=== PATIENT | female | born 1945 | race Caucasian/White ===

== ENCOUNTER → 2018-03-28 07:19 | Outpatient (CLI) | payer MEDICARE, OTHER, SELFPAY ==
[2018-03-28 10:25] LABS: Anion Gap 10 (5-15); BUN 15 mg/dL (7-18); BUN/Creat Ratio 22.3 RATIO (10-20); Calcium,Total 10.6 mg/dL (8.5-10.1); Chloride 105 mmol/L (98-107); Cholesterol 128 mg/dL (200); Creatinine, Serum 0.67 mg/dL (0.55-1.02); EST Glomerular Filtration Rate 92 mL/min (>60); Est Glom Filt Rate - Afr Amer 111 mL/min (>60); Glucose 214 mg/dL (74-106); High Density Lipoprotein 41 mg/dL; Potassium 4.4 mmol/L (3.5-5.1); Sodium Level 138 mmol/L (136-145); Triglycerides 153 mg/dL; Very Low Density Lipoprotein 31 mg/dL (5-40)
[2018-03-28 10:30] LABS: Hemoglobin A1c 8.6 % (4.2-6.3)
== END ==
PROVIDERS: Family Provider Family Medicine; PCP Family Medicine; Referring Provider Family Medicine; Visit Provider Family Medicine
DX: E11.9 Type 2 diabetes mellitus without complications (principal); E78.00 Pure hypercholesterolemia, unspecified
CPT/HCPCS: 36415; 80048; 80061; 83036

== ENCOUNTER → 2019-03-10 08:33 | Outpatient (CLI) | payer MEDICARE, OTHER, SELFPAY ==
[2019-03-10 10:11] LABS: Absolute Lymphocyte Count 2.12 X10^3/uL (0.83-4.51); Absolute Neutrophil Count 2.9 X10^3/uL (2.0-7.7); Basophil# 0.05 X10^3/uL; Basophil% 0.9 % (0-1); Eosinophil# 0.24 X10^3/uL; Eosinophils% 4.2 % (0-5); Hematocrit 43.8 % (37-47); Hemoglobin 14.2 g/dL (12.0-15.0); Lymphocyte # 2.12 X10^3/ul (4.0); Lymphocyte % 36.7 % (19-41); Mean Corp Hgb Conc 32.4 g/dL (32-36); Mean Corpuscular Hgb 29.5 pg (27.0-32.0); Mean Corpuscular Volume 91.1 fL (81-99); Mean Platelet Vol. 10.4 fl (6.2-12.0); Monocyte# 0.47 X10^3/uL; Monocyte% 8.1 % (0-10); NRBC Flagged by Analyzer 0 % (0-5); Neutrophil # 2.88 X10^3/uL (2.7-7.7); Neutrophil % 49.9 % (47-70); Platelet Count 293 K/mm3 (150-450); RBC Distribution Width CV 13.2 % (11.6-14.6); RBC Distribution Width SD 44.3 fl (35.1-43.9); Red Blood Count 4.81 M/mm3 (4.2-5.4); White Blood Count 5.8 K/mm3 (4.4-11.0)
[2019-03-10 10:33] LABS: Hemoglobin A1c 6.8 % (4.2-6.3)
[2019-03-10 10:44] LABS: Microalbumin,Random Urine 8.9 mg/L (NO RANGE EST.); Microalbumin:Creatinine Ratio 14.8 mg/g CRE (<30 mg/g CRE)
[2019-03-10 10:49] LABS: ALB/GLOB Ratio 1.4 RATIO (0.9-2.4); AST(SGOT) 12 U/L (15-37); Alanine Aminotransfer ALT/SGPT 31 U/L (13-56); Albumin, Serum 4.2 g/dL (3.2-5.0); Alkaline Phosphatase 88 U/L (45-117); Anion Gap 7 (5-15); BUN 17 mg/dL (7-18); BUN/Creat Ratio 24.7 RATIO (10-20); Calcium,Total 10.3 mg/dL (8.5-10.1); Chloride 108 mmol/L (98-107); Cholesterol 146 mg/dL (200); Creatinine, Serum 0.69 mg/dL (0.55-1.02); EST Glomerular Filtration Rate 89 mL/min (>60); Est Glom Filt Rate - Afr Amer 108 mL/min (>60); Globulin 2.9 g/dL (2.2-4.2); Glucose 140 mg/dL (74-106); High Density Lipoprotein 47 mg/dL; Phosphorus 2.5 mg/dL (2.5-4.9); Potassium 4.1 mmol/L (3.5-5.1); Protein, Total 7.1 g/dL (6.4-8.2); Sodium Level 137 mmol/L (136-145); Thyroid Stim Hormone (TSH) 1.42 uIU/mL (0.358-3.74); Triglycerides 139 mg/dL; Very Low Density Lipoprotein 28 mg/dL (5-40)
[2019-03-10 10:55] LABS: Vitamin D,25 Hydroxy 30.3 ng/mL (29.95-100.01)
[2019-03-11 09:02] LABS: PTHIN 85.7 pg/mL (18.4-80.1)
== END ==
PROVIDERS: PCP Family Medicine; Referring Provider Family Medicine; Visit Provider Family Medicine
DX: E11.9 Type 2 diabetes mellitus without complications (principal); E78.00 Pure hypercholesterolemia, unspecified; M81.0 Age-related osteoporosis without current pathological fracture; E83.52 Hypercalcemia; S92.501A Displaced unspecified fracture of right lesser toe(s), initial encounter for closed fracture; X58.XXXA Exposure to other specified factors, initial encounter
CPT/HCPCS: 36415; 80053; 80061; 82043; 82306; 82570; 83036; 83970; 84100; 84443; 85025

== ENCOUNTER → 2019-03-31 07:46 | Outpatient (CLI) | payer MEDICARE, OTHER, SELFPAY ==
--- NOTE | 2019-03-31 07:50 | US_ITS ---
HISTORY: NODULE FELT BY DOCTOR COMPARISON: None TECHNIQUE: Grayscale and color Doppler sonography of the thyroid gland. FINDINGS: RIGHT LOBE: 5.1 x 1.1 x 1.4 cm LEFT LOBE: 4.4 x 0.9 x 1.3 cm ISTHMUS: 2 mm Multiple thyroid nodules. Right inferior thyroid lobe measuring 1.4 x 1.0 x 1.1 cm, mixed solid and cystic with vascularity seen in the solid component which is isoechoic to hyperechoic. No definite calcification. TIRADS 2 Right mid thyroid lobe nodule measuring 1.3 x 0.6 x 1.1 cm, smoothly marginated, mildly hypoechoic with no definite calcification. TIRADS 4 Mixed solid and cystic smoothly marginated right thyroid lobe nodule measuring 0.8 x 0.4 x 0.8 cm without definite calcification. TIRADS 2 Isoechoic left mid thyroid lobe nodule measuring 0.9 x 0.5 x 0.7 cm, smoothly marginated without calcification. TIRADS 3 Additional small hypoechoic to anechoic left thyroid lobe nodules are seen measuring up to 4 mm in size. US/Thyroid IMPRESSION: Multiple bilateral thyroid nodules, as described. 1 year follow-up recommended for 1.3 cm TIRADS 4 lesion. at 0115 Reported and signed by: Lizette Wolfe MD Electronically Signed: Lizette Wolfe MD at 1:15 EST Tel , Service support ,
--- NOTE | 2019-03-31 08:54 | ECHOD_ITS ---
Reason For Study: Murmur Procedure This was a 2D Doppler, Color Flow transthoracic echocardiogram. Exam performed in department. Left Ventricle Normal size and thickness. The estimated ejection fraction is 65 %. Stage 1 diastolic dysfunction. No regional wall motion abnormalities noted. Right Ventricle Normal size and thickness. Normal systolic function. Atria Normal left atrium. Normal right atrium. Normal atrial septum. Mitral Valve The mitral valve is structurally normal. No prolapse or stenosis seen. Trivial mitral valve insufficiency. Tricuspid Valve Normal tricuspid valve. Trivial tricuspid valve insufficiency. Right ventricular systolic pressure estimated to be 24 mmHg. Aortic Valve Normal aortic valve. Trisinus/trileaflet aortic valve. Pulmonic Valve Normal pulmonic valve. Trivial pulmonic valve insufficiency. Great Vessels Normal aortic root. Normal arch. Normal inferior vena cava. Inferior vena cava collapse with sniff. Pericardium/Pleural No pericardial effusion. MMode/2D Measurements & Calculations LVIDd: 4.5 cm IVSd: 1.0 cm Ao root diam: 3.3 cm LVIDs: 3.2 cm LVPWd: 0.93 cm RVDd: 2.0 cm FS: 29.7 % LAV(MOD-bp): 32.4 ml LVAd ap4: 20.2 cm2 SV(MOD-sp4): 32.2 ml LAV(MOD-bp) Indexed: 19.4 ml/m2 EDV(MOD-sp4): 52.7 ml LAV(MOD-sp2): 28.4 ml EDV(sp4-el): 53.1 ml LAV(MOD-sp4): 30.6 ml LVAs ap4: 11.3 cm2 ESV(MOD-sp4): 20.6 ml ESV(sp4-el): 19.8 ml EF(MOD-sp4): 61.0 % EF(sp4-el): 62.7 % SV(sp4-el): 33.3 ml LA A4 area: 14.4 cm2 LA dimension(2D): 4.1 cm RA A4 area: 12.4 cm2 Doppler Measurements & Calculations MV E max bharat: 57.0 cm/sec Lat Peak E' Bharat: 9.9 cm/sec Med Peak E' Bharat: 5.9 cm/sec MV A max bharat: 72.1 cm/sec E/E' lat: 5.8 E/E' med: 9.6 MV E/A: 0.79 Ao V2 max: 151.4 cm/sec LV V1 max: 95.5 cm/sec PA V2 max: 82.8 cm/sec Ao max P.2 mmHg LV V1 max P.6 mmHg Ao V2 mean: 109.2 cm/sec Ao mean P.1 mmHg Ao V2 VTI: 34.5 cm TR max bharat: 221.6 cm/sec TR max P.6 mmHg Interpretation Summary The estimated ejection fraction is 65 %. Stage 1 diastolic dysfunction. Trivial mitral valve insufficiency. Trivial tricuspid valve insufficiency. Right ventricular systolic pressure estimated to be 24 mmHg. There is no comparison study available. Ordering Physician: Brooks Frank Referring Physician: Brooks Frank Performed By: Pauly Boyle RDCS, RVT
--- NOTE | 2019-03-31 09:40 | NM_ITS ---
CLINICAL: 74-year-old female with reported history of hypercalcemia. 99m Tc SESTAMIBI DUAL PHASE PARATHYROID SCINTIGRAPHY COMPARISON: None available FINDINGS: Following the intravenous administration of 28.0 mCi of 99m Tc sestamibi, image acquisitions of the anterior neck at approximately 15 minutes and 2.0 hours post radiopharmaceutical provision reveal: 1. Immediate static blood pool acquisitions demonstrate distribution of the radiopharmaceutical in the right-left lobes of the vaguely U-shaped thyroid gland. Uptake is accentuated in the superior pole of the left lobe thyroid colloid. 2. Delayed images depict persistent increased tracer uptake noted in the superior pole of the left thyroid bed. NM/Parathyroid Scan IMPRESSION: 1. ABNORMAL-POSITIVE 99m Tc SESTAMIBI PARATHYROID IMAGING DUAL PHASE EXAMINATION. 2. The increase in radiopharmaceutical concentration redemonstrated in the superior pole of the left thyroid bed is most consistent with a parathyroid adenoma. Electronically Signed: Keny Ovalle DO at 22:25 EST Tel , Service support ,
== END ==
PROVIDERS: PCP Family Medicine; Referring Provider Family Medicine; Visit Provider Family Medicine
DX: E21.3 Hyperparathyroidism, unspecified (principal); E04.1 Nontoxic single thyroid nodule; R01.1 Cardiac murmur, unspecified
CPT/HCPCS: 76536; 78070; 93306; A9500

== ENCOUNTER → 2019-04-08 09:57 | Outpatient (CLI) | payer MEDICARE, OTHER, SELFPAY ==
--- NOTE | 2019-04-08 09:59 | BD_ITS ---
STUDY: DUAL ENERGY X-RAY ABSORPTIOMETRY / DXA REASON FOR EXAM: Female, 74 years old. Age of paul- 45. Pat is 139# and 63 and amp; quot; a loss of 1 and amp; quot; per patient. Past hx of taking an HRT. Type II diabetic and takes metformin. Patient takes fosamax for 5 yrs.. Exercises moderately. Hx of a left wrist fx. TECHNIQUE: Bone Mineral Density (BMD) measurements of lumbar spine and bilateral hips were obtained. COMPARISON: Comparison is made with prior study dated October 14, 2013. FINDINGS: Lumbar Spine (L1-L4): g/cm2 (0.822) / T-score (-3.0) / Z-score (-1.3) Findings are suggestive of osteoporosis with a high fracture risk. Left Femur Total: g/cm2 (0.696) / T-score (-2.5) / Z-score (-0.9) Left Femoral Neck: g/cm2 (0.708) / T-score (-2.4) / Z-score (-0.6) Right Femur Total: g/cm2 (0.727) / T-score (-2.2) / Z-score (-0.7) Right Femoral Neck: g/cm2 (0.659) / T-score (-2.7) / Z-score (-0.9) The T-Scores on the most recent prior examination were: Lumbar Spine (L1-L4): There has been worsening of bone density since the previous examination. Left Femur Total: which represents a worsening of 12.1%. Right Femur Total: which represents a worsening of 12.5%. BD/Dexa Bone Density Study IMPRESSION: The patient is considered osteoporotic as outlined below according to World [employer] Organization (WHO) criteria with a high fracture risk. There has been worsening of bone density since the previous examination. Reference Information: The T-score is the number of standard deviations above or below the standard which is normal for young adults at their peak bone mineral density. The World Health Organization (WHO) interprets the T-scores as follows: Above -1 Normal bone density Between -1 and -2.5 Osteopenia Equal to / or below -2.5 Osteoporosis As a practical clinical guideline, osteopenia may be graded as follows: Mild -1 through -1.5 Moderate -1.6 through -2.0 Severe -2.1 through -2.4 The Z-score is the number of standard deviations above or below age-matched controls. A Z-score of less than -1.5 would be considered abnormal. References: 1. NIH Osteoporosis and Related Bone Diseases http://www.osteo.org 2. International Society for Clinical Densitometry http://www.iscd.org 3. National Osteoporosis Foundation http://www.nof.org Electronically Signed: Ariel Galicia, at 12:29 EST , Service support ,
== END ==
PROVIDERS: PCP Family Medicine; Referring Provider Family Medicine; Visit Provider Family Medicine
DX: M81.0 Age-related osteoporosis without current pathological fracture (principal)
CPT/HCPCS: 77080

== ENCOUNTER → 2019-08-01 11:54 | Outpatient (CLI) | payer MEDICARE, OTHER, SELFPAY ==
[2019-08-01 15:22] LABS: Absolute Lymphocyte Count 2.55 X10^3/uL (0.83-4.51); Absolute Neutrophil Count 4.3 X10^3/uL (2.0-7.7); Basophil# 0.04 X10^3/uL; Basophil% 0.5 % (0-1); Eosinophil# 0.23 X10^3/uL; Hematocrit 42.7 % (37-47); Lymphocyte # 2.55 X10^3/ul (4.0); Lymphocyte % 33.7 % (19-41); Mean Corp Hgb Conc 30.4 g/dL (32-36); Mean Corpuscular Hgb 28.9 pg (27.0-32.0); Mean Corpuscular Volume 94.9 fL (81-99); Mean Platelet Vol. 10.5 fl (6.2-12.0); Monocyte# 0.47 X10^3/uL; Monocyte% 6.2 % (0-10); NRBC Flagged by Analyzer 0 % (0-5); Neutrophil # 4.25 X10^3/uL (2.7-7.7); Neutrophil % 56.3 % (47-70); Platelet Count 345 K/mm3 (150-450); RBC Distribution Width CV 13.8 % (11.6-14.6); White Blood Count 7.6 K/mm3 (4.4-11.0)
[2019-08-01 15:48] LABS: Hemoglobin A1c 6.5 % (3.8-5.6)
[2019-08-01 15:58] LABS: Microalbumin,Random Urine 11.1 mg/L (NO RANGE EST.); Microalbumin:Creatinine Ratio 28.8 mg/g CRE (<30 mg/g CRE)
[2019-08-01 16:00] LABS: ALB/GLOB Ratio 1.2 RATIO (0.9-2.4); AST(SGOT) 16 U/L (15-37); Alanine Aminotransfer ALT/SGPT 28 U/L (13-56); Albumin, Serum 4.1 g/dL (3.2-5.0); Alkaline Phosphatase 100 U/L (45-117); Anion Gap 8 (5-15); BUN 14 mg/dL (7-18); BUN/Creat Ratio 22.1 RATIO (10-20); Calcium,Total 9.4 mg/dL (8.5-10.1); Chloride 107 mmol/L (98-107); Cholesterol 122 mg/dL (200); Creatinine, Serum 0.63 mg/dL (0.55-1.02); EST Glomerular Filtration Rate 98 mL/min (>60); Est Glom Filt Rate - Afr Amer 118 mL/min (>60); Globulin 3.3 g/dL (2.2-4.2); Glucose 95 mg/dL (74-106); High Density Lipoprotein 46 mg/dL; Potassium 3.8 mmol/L (3.5-5.1); Protein, Total 7.4 g/dL (6.4-8.2); Sodium Level 138 mmol/L (136-145); Triglycerides 121 mg/dL; Very Low Density Lipoprotein 24 mg/dL (5-40)
[2019-08-01 19:01] LABS: Vitamin D,25 Hydroxy 48.9 ng/mL (29.95-100.01)
[2019-08-04 08:35] LABS: PTHIN 30.2 pg/mL (18.4-80.1)
== END ==
PROVIDERS: PCP Family Medicine; Visit Provider Family Medicine
DX: E11.9 Type 2 diabetes mellitus without complications (principal); E78.00 Pure hypercholesterolemia, unspecified; D35.1 Benign neoplasm of parathyroid gland; M81.0 Age-related osteoporosis without current pathological fracture
CPT/HCPCS: 36415; 80053; 80061; 82043; 82306; 82570; 83036; 83970; 85025

== ENCOUNTER → 2020-05-03 08:09 | Outpatient (CLI) | payer MEDICARE, OTHER, SELFPAY ==
[2020-05-03 10:31] LABS: PTHIN 34.1 pg/mL (18.4-80.1); Vitamin D,25 Hydroxy 39.8 ng/mL
[2020-05-03 10:41] LABS: ALB/GLOB Ratio 1.3 RATIO (0.9-2.4); AST(SGOT) 13 U/L (15-37); Alanine Aminotransfer ALT/SGPT 27 U/L (13-56); Albumin, Serum 3.9 g/dL (3.2-5.0); Alkaline Phosphatase 72 U/L (45-117); Anion Gap 7 (5-15); BUN 19 mg/dL (7-18); BUN/Creat Ratio 31.5 RATIO (10-20); Calcium,Total 8.8 mg/dL (8.5-10.1); Chloride 106 mmol/L (98-107); Cholesterol 116 mg/dL (200); EST Glomerular Filtration Rate 104 mL/min (>60); Est Glom Filt Rate - Afr Amer 125 mL/min (>60); Globulin 2.9 g/dL (2.2-4.2); Glucose 120 mg/dL (74-106); High Density Lipoprotein 41 mg/dL; Phosphorus 3.8 mg/dL (2.5-4.9); Potassium 3.8 mmol/L (3.5-5.1); Protein, Total 6.8 g/dL (6.4-8.2); Sodium Level 140 mmol/L (136-145); Triglycerides 142 mg/dL; Very Low Density Lipoprotein 28 mg/dL (5-40)
[2020-05-03 10:43] LABS: Hemoglobin A1c 6.4 % (3.8-5.6)
== END ==
PROVIDERS: PCP Family Medicine; Visit Provider Family Medicine
DX: E11.9 Type 2 diabetes mellitus without complications (principal); E78.00 Pure hypercholesterolemia, unspecified; M81.0 Age-related osteoporosis without current pathological fracture; D35.1 Benign neoplasm of parathyroid gland
CPT/HCPCS: 36415; 80053; 80061; 82306; 83036; 83970; 84100

== ENCOUNTER → 2020-10-28 08:09 | Outpatient (CLI) | payer MEDICARE, OTHER, SELFPAY ==
[2020-10-28 10:19] LABS: Absolute Lymphocyte Count 2.45 X10^3/uL (0.83-4.51); Absolute Neutrophil Count 3.6 X10^3/uL (2.0-7.7); Basophil# 0.04 X10^3/uL; Basophil% 0.6 % (0-1); Eosinophil# 0.37 X10^3/uL; Eosinophils% 5.3 % (0-5); Hematocrit 43.8 % (37-47); Hemoglobin 13.9 g/dL (12.0-15.0); Lymphocyte # 2.45 X10^3/ul (0.83-4.51); Lymphocyte % 35.2 % (19-41); Mean Corp Hgb Conc 31.7 g/dL (32-36); Mean Corpuscular Hgb 29.2 pg (27.0-32.0); Mean Platelet Vol. 10.6 fl (6.2-12.0); Monocyte% 7.2 % (0-10); NRBC Flagged by Analyzer 0 % (0-5); Neutrophil # 3.58 X10^3/uL (2.7-7.7); Neutrophil % 51.4 % (47-70); Platelet Count 298 K/mm3 (150-450); RBC Distribution Width CV 13.2 % (11.6-14.6); RBC Distribution Width SD 44.8 fl (35.1-43.9); Red Blood Count 4.76 M/mm3 (4.2-5.4)
[2020-10-28 10:51] LABS: Cholesterol 138 mg/dL (200); High Density Lipoprotein 44 mg/dL; Triglycerides 143 mg/dL; Very Low Density Lipoprotein 29 mg/dL (5-40)
[2020-10-28 10:53] LABS: Hemoglobin A1c 6.9 % (3.8-5.6)
[2020-10-28 10:55] LABS: Vitamin D,25 Hydroxy 41.6 ng/mL
== END ==
PROVIDERS: PCP Family Medicine; Referring Provider Family Medicine; Visit Provider Family Medicine
DX: E11.9 Type 2 diabetes mellitus without complications (principal); M81.0 Age-related osteoporosis without current pathological fracture
CPT/HCPCS: 36415; 80061; 82306; 83036; 85025

== ENCOUNTER → 2020-11-11 09:51 | Outpatient (CLI) | payer MEDICARE, OTHER, SELFPAY ==
--- NOTE | 2020-11-11 09:54 | US_ITS ---
STUDY: THYROID ULTRASOUND REASON FOR EXAM: Female, 75 years old. Thyroid nodules. TECHNIQUE: Ultrasound evaluation of the thyroid was performed with real-time and static meraz-scale imaging. COMPARISON: Comparison is made with prior examination dated 03/31/2019. FINDINGS: RIGHT LOBE: The right lobe of the thyroid gland measures 4.8 cm x 1.6 cm x 1.1 cm. There is a heterogeneous echotexture. 3 nodules are seen within the right lobe. The largest measures 1.2 cm x 1.2 size by 0.4 cm. This is a hypoechoic solid nodule. This is essentially unchanged. There is a mixed solid and cystic nodule measuring 9 mm x 6 mm x 2 mm. This is unchanged. LEFT LOBE: The left lobe of the thyroid gland measures 4.6 cm x 1.6 cm x 0.9 cm. There is a heterogeneous echotexture. Once again, 3 subcentimeter hypoechoic solid nodules are seen. The largest is in the midpole and measures 9 mm x 4 mm x 4 mm. This is essentially unchanged. ISTHMUS: The isthmus measures 2 mm. The regional lymph nodes are normal. US/Thyroid IMPRESSION: Heterogeneous echotexture of both lobes of the thyroid gland as described. Stable appearance of the bilateral thyroid nodules. Electronically Signed: Ariel Galicia MD at 13:36 EDT , Service support ,
== END ==
PROVIDERS: PCP Family Medicine; Referring Provider Family Medicine; Visit Provider Family Medicine
DX: E04.1 Nontoxic single thyroid nodule (principal)
CPT/HCPCS: 76536

== ENCOUNTER → 2020-12-14 | Outpatient (CLI) | payer MEDICARE, OTHER, SELFPAY | END | disposition home or self-care (01) | LOC: LABSPEC 12-15 09:28 | PROVIDERS: PCP Family Medicine; Visit Provider Family Medicine | DX: N39.0 Urinary tract infection, site not specified (principal) | CPT/HCPCS: 87086; 87088 ==

== ENCOUNTER → 2020-12-31 16:44 | Outpatient (CLI) | payer MEDICARE, OTHER, SELFPAY ==
--- NOTE | 2020-12-31 16:20 | CYSPIN_PTH ---
PATIENT: LAUREN OLIVERA LOC: [facility] U#:[id number] AGE/SX: 79/F ROOM: RE12/31/[address]: Dr. Becki Lorenz MD : 1945 BED: DIS: SPEC #: [id number] RECD: 01/03/21 08:52 STATUS: ELAN REEmily #: [id number] SAMEER: 12/31/20 16:[address]: Becki Lorenz DEPT: CYTOLOGY RECD BY: Ibis Aponte ENTERED: 01/03/21 08:52 SP TYPE: CYSPIN FL OTHR DR: Dr. Brooks Frank MD Tissues: Urine Procedures: Pap Stain (control) Special Stain Group II Cytospin Fluid HEADER OPERATION: Not noted PRE-OP DIAGNOSIS: Gross hematuria TISSUE SUBMITTED: Urine for cytology DIAGNOSIS CYTOLOGY Urine for cytology (cytospin): Negative for malignant cells. See comment. ENEIDA:asad 01/03/2021 COMMENT Red blood cells are noted. Clinical correlation and appropriate follow up are necessary. CYTOLOGY STUDY Slides are reviewed. CYTOLOGY GROSS Received is 20 ml of yellow cloudy fluid labeled with the patient's name and and designated per the requisition as urine. Submitted for cytology preparation. / asad 01/03/2021 TC:5 CPT: 83173
[2020-12-31 18:01] LABS: Cytology, Body Fluid / CSF SEE PATHOLOGY REPORT
[2020-12-31 18:14] LABS: Anion Gap 11 (5-15); BUN 17 mg/dL (7-18); Calcium,Total 9.4 mg/dL (8.5-10.1); Chloride 103 mmol/L (98-107); Creatinine, Serum 0.57 mg/dL (0.55-1.02); EST Glomerular Filtration Rate 111 mL/min (>60); Est Glom Filt Rate - Afr Amer 134 mL/min (>60); Glucose 111 mg/dL (74-106); Potassium 3.9 mmol/L (3.5-5.1); Sodium Level 138 mmol/L (136-145)
== END ==
PROVIDERS: PCP Family Medicine; Referring Provider Urology; Visit Provider Urology
DX: R31.0 Gross hematuria (principal)
CPT/HCPCS: 36415; 80048; 88108; 88313

== ENCOUNTER → 2021-01-12 08:20 | Outpatient (CLI) | payer MEDICARE, OTHER, SELFPAY ==
--- NOTE | 2021-01-12 08:30 | CT_ITS ---
STUDY: CT ABDOMEN AND PELVIS WITH AND WITHOUT CONTRAST REASON FOR EXAM: Female, 75 years old. GROSS HEMATURIA. History of kidney stones. Known lung nodules. RADIATION DOSAGE (If Supplied By Facility): CTDIvol = ( 11.91 ) mGy, DLP = ( 1692.72 ) mGycm TECHNIQUE: Transaxial images were obtained from the dome of the diaphragm to the symphysis pubis without oral contrast. IV 100mL Isovue-370 was administered. Sagittal and coronal images were reconstructed. Individualized dose optimization techniques were used for this CT. COMPARISON: None. FINDINGS: Fibrocalcific scarring at the right lung base medially. The visualized portions of the heart are within normal limits. Normal liver. Normal gallbladder and extrahepatic biliary system. Normal spleen. Normal pancreas. There is a small, circumscribed, smooth, low attenuation left adrenal mass, consistent with an adrenal adenoma. This measures 2.1 cm. Normal right adrenal gland. Normal right kidney. Mild degree of left hydronephrosis due to a 7.8 mm calculus at the left ureteropelvic junction. 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 Left parapelvic renal cysts. There is a small hiatal hernia. Normal small intestine. There are scattered colonic diverticula consistent with diverticulosis. Sigmoid diverticulosis. The patient is status post appendectomy. There is scattered atherosclerotic calcification of the abdominal aorta, without a demonstrated aneurysm. Normal inferior vena cava. There is borderline retroperitoneal lymphadenopathy with enlarged nodes no greater than 10mm in the short axis diameter. Normal urinary bladder. There is absence of the uterus consistent with a prior hysterectomy. Normal abdominal wall. There are diffuse degenerative changes of the visualized lumbar spine. Levoscoliosis. CT/CT Abd/Pelvis W/WO Contrast IMPRESSION: 7.8 mm calculus at the left ureteral pelvic junction causing mild left hydronephrosis. Stable angiomyolipoma of the left kidney. Stable left adrenal adenoma. Electronically Signed: Ariel Galicia MD at 12:46 EST , Service support ,
== END ==
PROVIDERS: PCP Family Medicine; Referring Provider Urology; Visit Provider Urology
DX: R31.0 Gross hematuria (principal)
CPT/HCPCS: 74178; Q9967

== ENCOUNTER → 2021-01-14 13:29 | Outpatient (CLI) | payer MEDICARE, OTHER, SELFPAY ==
--- NOTE | 2021-01-14 13:31 | RAD_ITS ---
STUDY: X-RAY - ABDOMEN/PELVIS REASON FOR EXAM: Female, 75 years old. Flank pain, hematuria TECHNIQUE: Two AP supine views of the abdomen and pelvis. COMPARISON: CT scan from 01/12/2021 FINDINGS: Normal visualized lung bases. There is a moderate amount of colonic fecal material. There is no demonstrated free abdominal air. The visualized liver, spleen and kidneys are grossly normal in size and morphology. Calcific densities noted at or near the left UPJ, unchanged from previous CT Normal soft tissue structures. There are diffuse degenerative changes of the visualized lumbar spine. RAD/Abdomen Single View IMPRESSION: Calcifications at or near the left UPJ unchanged from recent CT No acute findings Retained stool Electronically Signed: Victorino Glez MD at 17:19 EST , Service support ,
== END ==
PROVIDERS: PCP Family Medicine; Referring Provider Urology; Visit Provider Urology
DX: N20.1 Calculus of ureter (principal)
CPT/HCPCS: 74018

== ENCOUNTER 2021-01-24 08:41 | Day surgery (SDC) | payer MEDICARE, OTHER, SELFPAY ==
--- NOTE | 2021-01-20 09:40 | EKG12_ITS ---
Test Reason : PREOP Blood Pressure : / mmHG Vent. Rate : 072 BPM Atrial Rate : 072 BPM P-R Int : 144 ms QRS Dur : 096 ms QT Int : 382 ms P-R-T Axes : 060 -47 037 degrees QTc Int : 418 ms Normal sinus rhythm Left axis deviation Poor R wave progression AnteroSeptal CT, age undetermined, cannot be excluded Inferior CT, age undetermined, cannot be excluded Abnormal ECG Confirmed by LILLY CLIFFORD, ERMELINDA ([id number]), editor managing newspaper ROBERT RABAGO ([id number]) on 01/21/2021 7:50:18 AM Referred By: Becki Lorenz Confirmed By:ERMELINDA CARR MD
[2021-01-20 10:21] LABS: Hemoglobin A1c 6.5 % (3.8-5.6)
[2021-01-20 10:31] LABS: Anion Gap 8 (5-15); BUN 12 mg/dL (7-18); BUN/Creat Ratio 15.8 RATIO (10-20); Calcium,Total 9.2 mg/dL (8.5-10.1); Chloride 105 mmol/L (98-107); Creatinine, Serum 0.76 mg/dL (0.55-1.02); EST Glomerular Filtration Rate 79 mL/min (>60); Est Glom Filt Rate - Afr Amer 96 mL/min (>60); Glucose 256 mg/dL (74-106); Sodium Level 138 mmol/L (136-145)
[2021-01-24 09:14] VITALS: BP 138/74; PULSE 87; RESP 16; TEMP 36.8; O2SAT 98; BMI 22.9
[2021-01-24] MEDS: Lactated Ringers 1,000 ML 15 ML IV (09:27)
--- NOTE | 2021-01-24 09:50 | HP.PCM_ITS ---
HPI - General HPI Narrative LAUREN OLIVERA, is a 76 F who presents for bladder biopsy, ureteral stent insertion and extracorporeal shockwave lithotripsy of left ureteropelvic junction stone. Informed consent was obtained. [facility] Medical History (Updated 01/24/21 @ 09:[address] Becki Lorenz MD) Anxiety Back pain Depression Diabetes Dietary restriction High cholesterol History of echocardiogram History of stress test Hx of malignant carcinoid tumor Lesion of urinary bladder Non-smoker Obstruction of left ureteropelvic junction (UPJ) due to stone Restless legs Wears glasses Home Medications aspirin [Aspir-81] 81 mg PO DAILY 01/19/21 [History Last Taken Unknown] atorvastatin 20 mg PO QHS 01/19/21 [History Last Taken Unknown] calcium 500 mg PO DAILY 01/19/21 [History Last Taken Unknown] empagliflozin [Jardiance] 25 mg PO DAILY 01/19/21 [History Last Taken Unknown] escitalopram oxalate [Lexapro] 10 mg PO DAILY 01/19/21 [History Last Taken Unknown] metformin 1,000 mg PO BID 01/19/21 [History Last Taken Unknown] Allergy/AdvReac Type Severity Reaction Status Date / Time cefdinir [From Omnicef] Allergy Swelling/FACIAL Verified 01/24/21 09:13 AND HIVES Surgical History History of cystoscopy History of laparotomy Hx of arthroscopic knee surgery Hx of colonoscopy Hx of hysterectomy, total Hx of parathyroidectomy Hx of shoulder surgery Social History Smoking Status: Never smoker ROS Constitutional Constitutional: Denies chills, fever(s) or night sweats Eyes Eyes: Denies change in vision ENT HEENT: Reports systems reviewed and no addt'l complaints, except as documented Cardiovascular Cardiovascular: Denies chest pain, fatigue, irregular heart rhythm or orthostatic symptoms Respiratory/Chest Respiratory/Chest: Denies cough, dry cough, dyspnea, tachypnea or wheezing Gastrointestinal Gastrointestinal: Reports abdominal pain; Denies change in stool character Genitourinary Genitourinary: Reports systems reviewed and no addt'l complaints, except as documented, flank pain, hematuria, low back pain and urinary urgency Musculoskeletal Musculoskeletal: Denies atrophy or joint pain Integumentary Integumentary: Denies changing lesions, pruritus or rash Neurologic Neurologic: Reports systems reviewed and no addt'l complaints, except as documented Psychiatric Psychiatric: Reports systems reviewed and no addt'l complaints, except as documented Endocrine Endocrinology: Reports systems reviewed and no addt'l complaints, except as documented Hematologic/Lymphatic Hematologic/Lymphatic: Reports systems reviewed and no addt'l complaints, except as documented Allergic/Immunologic Allergic/Immunologic: Reports systems reviewed and no addt'l complaints, except as documented Vital Signs Vital Signs Vital Signs: 01/24/21 09:14 Temperature 98.2 F Temperature Source Temporal Pulse Rate 87 Respiratory Rate 16 Respiratory Pattern Normal Blood Pressure 138/74 H Blood Pressure Mean 95 Blood Pressure Source Monitor Blood Pressure Position Semi-Fowlers Blood Pressure Location Right Arm Pulse Ox 98 Oxygen Delivery Method Room Air Weight Weight: 60.7 kg Body Mass Index (BMI) 22.9 Physical Exam Const alert and oriented x3 HEENT normocephalic, head/scalp atraumatic, external ears normal and external nose normal Mouth: lips normal and tongue normal Eyes General Eye: normal appearance of both eyes Neck supple General: trachea midline Lymph Lymphatic: no lymphedema noted Chest inspection of chest normal Chest: symmetrical chest wall rise Resp normal respiratory effort, normal air movement, no retractions and no use of accessory muscles Effort and Inspection: able to speak in complete sentences and symmetric chest movement Cardio regular rate and regular rhythm GI soft to palpation, non-tender and non-distended external exam normal Back/Spine General Back: CVA tenderness left Extremity normal to inspection Skin no rashes or lesions noted, no wounds, skin turgor normal, no jaundice, no petechiae and no mottling Neuro oriented x3, CN's II-XII intact bilaterally and moves all extremities Psych mental status grossly normal, thought process normal and cooperative Results Lab / Micro Data Result Diagrams: 01/20/21 09:32 01/20/21 09:32 Assessment & Plan Assessment/Plan (1) Obstruction of left ureteropelvic junction (UPJ) due to stone: (2) Lesion of urinary bladder: PLAN: proceed with cystoscopy, bladder biopsy, left ureteral stent with extracorporeal shockwave lithotripsy on the left side Procedure Criteria Type of Procedure Procedure Type: Elective Elective Risks - COVID COVID Risk Discussion: The surgeon/proceduralist and patient have discussed in detail the risk of exposure to and/or potential harm posed by the COVID-19 virus with having a surgery/procedure at this time versus the risk of delaying the surgery/procedure. It is not possible to know either the risk of delaying the surgery or procedure or chance of getting an infection with perfect accuracy, but a joint decision was made between the patient and the surgeon/proceduralist to proceed at this time with the scheduled surgery/procedure as indicated on the consent form.
--- NOTE | 2021-01-24 10:05 | PCM.DC ---
Discharge Instructions Diet Discharge Diet: No restrictions Activity Discharge Activity: Return to Normal Activity May resume sexual activity in: No Restrictions Dressing / Incision Call your doctor if you observe: Fever of 101 or Higher, Inability to urinate, Inability to have a bowel movement and Uncontrolled pain Follow Up Care Please Follow Up With: Becki Lorenz MD When: the office will call you to schedule Test Results: Test results from this visit will be discussed in further detail at your follow-up appointment, if applicable. Discharge Plan Admission Attending Provider: Becki Lorenz Primary Care Provider: Brooks Frank Discharge Orders/Prescriptions Prescriptions: New oxycodone-acetaminophen [Percocet] 5-325 mg tablet 1 tab PO Q8H PRN (Reason: pain) 7 Days Qty: 20 RF: 0 phenazopyridine [Pyridium] 200 MG tablet 200 mg PO TID PRN PRN (Reason: Bladder Spasms) 7 Days Qty: 30 RF: 0 sulfamethoxazole-trimethoprim [sulfamethoxazole-trimethoprim] 1 TABLET tablet 1 tab PO BID 3 Days Qty: 6 RF: 0 Continued metformin 500 mg Tablet 1,000 mg PO BID RF: 0 atorvastatin 20 mg Tablet 20 mg PO QHS RF: 0 calcium 500 mg Tablet 500 mg PO DAILY RF: 0 aspirin 81 mg Tablet,Delayed Release (Dr/Ec) 81 mg PO DAILY RF: 0 escitalopram oxalate [Lexapro] 10 mg Tablet 10 mg PO DAILY RF: 0 Jardiance 25 mg Tablet 25 mg PO DAILY RF: 0 Referrals / Follow Up: Brooks Farnk MD [Primary Care Provider] - Disposition Disposition (needs filled in before D/C Order can be placed): Home, Self Care
--- NOTE | 2021-01-24 11:03 | PCM.OPRPT ---
Problems Associated Problem List Diagnoses (1) Obstruction of left ureteropelvic junction (UPJ) due to stone: Report of Operation Date of Procedure: 01/24/21 Pre-Operative Diagnosis: Left ureteropelvic junction obstruction secondary to stone Post-Operative Diagnosis: Same Surgery/Procedure Performed:: Cystoscopy left ureteral stent insertion Surgeon: Becki Lorenz Type of Anesthesia: MAC Description of Procedure: The patient is a 76-year-old female sent for an evaluation for hematuria and found to have an obstructing left ureteropelvic junction stone. She did not stop her aspirin, and the case was subsequently changed to cystoscopy with left ureteral stent insertion. Patient was taken to the operating room and placed on the operating room table. Anesthesia monitored the head, neck, airway, IV access and vital signs throughout the case. Once anesthesia was appropriately administered the patient was placed in dorsal lithotomy position was prepped and draped in usual sterile fashion. The cystoscope was inserted through the urethra under direct visualization into the urinary bladder. The left ureteral orifice was identified and intubated with a 0.035 Glidewire. A 6 x 24 JJ stent was inserted over the Glidewire with good curling in the renal pelvis as well as the urinary bladder. The cystic bladder lesion on a stalk remains lateral to the left ureteral orifice. The patient's bladder was then emptied and the case was terminated. The patient was awakened and taken to the recovery room in good condition. There were no complications during this procedure. Grafts/Implants Used: 6 x 24 JJ stent Complications None Admit VTE Documentation VTE Present on Admission: Yes VTE Mechan Device Prophylaxis: SCD's VTE Pharm Prophylaxis ordered?: No Reason prophylaxis not ordered:: Treatment Not Indicated
[2021-01-24] MEDS: Ciprofloxacin 400 MG/200 ML BAG 200 MG IV (11:18)
[2021-01-24 11:41] VITALS: BP 123/62; BP 138/74; PULSE 82; RESP 16; TEMP 36.7; O2SAT 96
[2021-01-24 11:45] VITALS: BP 126/61; BP 138/74; PULSE 75; RESP 16; O2SAT 98
[2021-01-24 12:00] VITALS: BP 138/74; BP 143/70; PULSE 71; RESP 16; O2SAT 97
[2021-01-24 12:15] VITALS: BP 127/67; BP 138/74; PULSE 76; RESP 16; O2SAT 97
[2021-01-24 12:15] LABS: Bedside Glucose 147 mg/dL (70-110)
[2021-01-24 12:49] VITALS: BP 138/74; BP 157/70; PULSE 60; RESP 16; TEMP 36.4; O2SAT 100
== END 2021-01-24 12:59 | disposition home or self-care (01) ==
LOC: SDC 08:42 → AC 08:43
PROVIDERS: Anesthesiology; PCP Family Medicine; Referring Provider Urology; Visit Provider Urology
PROC: (CPT 50590; principal; 2021-01-24 10:05)
DX: N20.1 Calculus of ureter (principal); E11.9 Type 2 diabetes mellitus without complications; E78.00 Pure hypercholesterolemia, unspecified; F32.A Depression, unspecified; F41.9 Anxiety disorder, unspecified; Z79.84 Long term (current) use of oral hypoglycemic drugs; Z79.82 Long term (current) use of aspirin; Z79.899 Other long term (current) drug therapy
CPT/HCPCS: 00910; 52332; 36415; 76000; 80048; 82962; 83036; 93005; J7120; C2617; J0744; J2405

== ENCOUNTER 2021-02-18 11:02 | Outpatient (CLI) | payer MEDICARE, OTHER, SELFPAY | END 2021-02-18 23:59 | disposition short-term general hospital (02) | LOC: MTLAB 11:03 | PROVIDERS: PCP Family Medicine; Referring Provider Urology; Visit Provider Urology | DX: N39.0 Urinary tract infection, site not specified (principal) | CPT/HCPCS: 87086; 87088 ==

== ENCOUNTER 2021-02-25 07:31 | Day surgery (SDC) | payer MEDICARE, OTHER, SELFPAY ==
--- NOTE | 2021-02-25 | IMM_PTH ---
PATIENT: LAUREN OLIVERA LOC: [facility] U#:[id number] AGE/SX: 76/F ROOM: RE02/25/[address]: Dr. Becki Lorenz MD : 1945 BED: DIS: 02/25/2021 SPEC #: [id number] RECD: 02/28/21 12:41 STATUS: ELAN REEmily #: [id number] SAMEER: 02/25/21 00:[address]: Becki Lorenz DEPT: IMMUNOHISTOCHEMISTRY RECD BY: Adeola Valentine ENTERED: 02/28/21 12:43 SP TYPE: IMMUNO OTHR DR: Dr. Brooks Frank MD Tissues: Urinary bladder, NOS Procedures: CK20 (add) KI-67 (add) P53 (add) CK7 (initial) PHYSICIAN & INSTITUTION [place] [id number] SPECIMEN INFORMATION: Tissue Source: Bladder biopsy Clinical Info: Lesion of bladder, obstruction of left UPJ due to stone Specimen Number: [id number] CPT code: 22609, 60398 x3 METHODOLOGY: Deparaffinized sections of prefer/formalin-fixed tissue or PAP/DQ stained slides are incubated with monoclonal/polyclonal antibodies/oligonucleotide probes. Localization is made via biotin free immunoperoxidase method. Appropriate controls are performed and reacted as expected. Results on target cell population are indicated in the following table: RESULTS: ANTIBODY / CLONE RESULT CK7 (OV-TL12/30) positive CK20 (KS20.8) positive, focal, only in superficial layers P53 (DO-7) negative Ki-67 (30-9) positive, low These tests were developed and their performance characteristics determined by [facility]. They may not have been cleared or approved by the U.S. Food and Drug Administration. The FDA has determined that such clearance or approval is not necessary. The above immunohistochemical/dualISH markers are ordered and reviewed by the Pathologist. INTERPRETATION: Urinary bladder, biopsy: Negative for malignancy. ENEIDA:asad 03/01/2021
[2021-02-25 07:59] VITALS: BP 139/74; PULSE 82; RESP 16; TEMP 36.5; O2SAT 97; BMI 22.6
--- NOTE | 2021-02-25 08:29 | HP.PCM_ITS ---
HPI - General HPI Narrative LAUREN OLIVERA, is a 76 F who presents for definitive management of her left renal calculus with extracorporal shockwave lithotripsy. She already has a left indwelling ureteral stent. She is also going to have a biopsy of a small cystic lesion on a stalk on the area of the trigone. Informed consent has been obtained. All questions have been answered. 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 Restless legs Wears glasses Home Medications Jardiance 25 mg PO DAILY 01/19/21 [History Last Taken 02/24/21] aspirin 81 mg PO DAILY 01/19/21 [History Last Taken 01/24/21] atorvastatin 20 mg PO QHS 01/19/21 [History Last Taken 02/24/21] calcium 500 mg PO DAILY 01/19/21 [History Last Taken 02/24/21] escitalopram oxalate [Lexapro] 10 mg PO DAILY 01/19/21 [History Last Taken 02/24/21] metformin 1,000 mg PO BID 01/19/21 [History Last Taken 02/24/21] Allergy/AdvReac Type Severity Reaction Status Date / Time cefdinir [From Omnicef] Allergy Swelling/FACIAL Verified 02/25/21 07:57 AND HIVES Surgical History History of cystoscopy History of laparotomy Hx of arthroscopic knee surgery Hx of colonoscopy Hx of cystoscopy Hx of hysterectomy, total Hx of parathyroidectomy Hx of shoulder surgery Social History Smoking Status: Never smoker ROS Constitutional Constitutional: Reports systems reviewed and no addt'l complaints, except as documented; Denies chills, fever(s), headache(s), lethargy, malaise or night sweats Eyes Eyes: Reports systems reviewed and no addt'l complaints, except as documented ENT HEENT: Reports systems reviewed and no addt'l complaints, except as documented Cardiovascular Cardiovascular: Denies abdominal pain, nausea, syncope or vomiting Respiratory/Chest Respiratory/Chest: Denies change in mental status, chest congestion, cough or dyspnea Gastrointestinal Gastrointestinal: Denies abdominal pain or anorexia Genitourinary Genitourinary: Reports flank pain, hematuria, urinary frequency and urinary urgency; Denies dysuria Musculoskeletal Musculoskeletal: Reports systems reviewed and no addt'l complaints, except as documented Integumentary Integumentary: Reports systems reviewed and no addt'l complaints, except as documented Neurologic Neurologic: Reports systems reviewed and no addt'l complaints, except as documented Psychiatric Psychiatric: Reports systems reviewed and no addt'l complaints, except as documented Endocrine Endocrinology: Reports systems reviewed and no addt'l complaints, except as documented Hematologic/Lymphatic Hematologic/Lymphatic: Reports systems reviewed and no addt'l complaints, except as documented Allergic/Immunologic Allergic/Immunologic: Reports systems reviewed and no addt'l complaints, except as documented Vital Signs Vital Signs Vital Signs: 02/25/21 07:59 Temperature 97.7 F L Temperature Source Temporal Pulse Rate 82 Respiratory Rate 16 Respiratory Pattern Normal Blood Pressure 139/74 H Blood Pressure Mean 95 Blood Pressure Source Monitor Blood Pressure Position Semi-Fowlers Blood Pressure Location Left Arm Pulse Ox 97 Oxygen Delivery Method Room Air Weight Weight: 60 kg Body Mass Index (BMI) 22.6 Physical Exam Const alert, oriented x3 and no apparent distress HEENT normocephalic, head/scalp atraumatic, hearing grossly normal bilaterally, external ears normal and external nose normal Eyes conjunctivae normal and no scleral icterus General Eye: normal appearance of both eyes Neck supple General: trachea midline Lymph Lymphatic: no lymphedema noted Chest inspection of chest normal Chest: symmetrical chest wall rise Resp normal respiratory effort, normal air movement, no retractions and no use of accessory muscles Cardio regular rate and regular rhythm GI soft to palpation, non-tender and non-distended Back/Spine General Back: CVA tenderness left Extremity normal to inspection Skin no rashes or lesions noted, no wounds, skin turgor normal, no jaundice, no petechiae and no mottling Neuro oriented x3, CN's II-XII intact bilaterally and moves all extremities Psych mental status grossly normal, thought process normal, cooperative, affect normal, speech normal and activity/motor behavior normal Assessment & Plan Assessment/Plan (1) Lesion of urinary bladder: (2) 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 It is not possible to know either the risk of delaying the surgery or procedure or chance of getting an infection with perfect accuracy, but a joint decision was made between the patient and the surgeon/proceduralist to proceed at this time with the scheduled surgery/procedure as indicated on the consent form.
[2021-02-25] MEDS: Lactated Ringers 1,000 ML 15 ML IV ×2 (08:30→10:39)
--- NOTE | 2021-02-25 08:34 | PCM.DC ---
Discharge Instructions Diet Discharge Diet: No restrictions Activity Discharge Activity: Return to Normal Activity May resume sexual activity in: No Restrictions Dressing / Incision Call your doctor if you observe: Fever of 101 or Higher, Inability to urinate, Inability to have a bowel movement and Uncontrolled pain Follow Up Care Please Follow Up With: Becki Lorenz MD When: call for appt to be seen in 2-3 weeks with KUB Test Results: Test results from this visit will be discussed in further detail at your follow-up appointment, if applicable. Discharge Plan Admission Attending Provider: Becki Lorenz Primary Care Provider: Brooks Frank Discharge Orders/Prescriptions Prescriptions: New oxycodone-acetaminophen [Percocet] 5-325 mg tablet 1 tab PO Q8H PRN (Reason: pain) 5 Days Qty: 20 RF: 0 sulfamethoxazole-trimethoprim [sulfamethoxazole-trimethoprim] 1 TABLET tablet 1 tab PO BID 3 Days Qty: 6 RF: 0 Continued metformin 500 mg Tablet 1,000 mg PO BID RF: 0 atorvastatin 20 mg Tablet 20 mg PO QHS RF: 0 calcium 500 mg Tablet 500 mg PO DAILY RF: 0 aspirin 81 mg Tablet,Delayed Release (Dr/Ec) 81 mg PO DAILY RF: 0 escitalopram oxalate [Lexapro] 10 mg Tablet 10 mg PO DAILY RF: 0 Jardiance 25 mg Tablet 25 mg PO DAILY RF: 0 Referrals / Follow Up: Brooks Frank MD [Primary Care Provider] - Disposition Disposition (needs filled in before D/C Order can be placed): Home, Self Care
--- NOTE | 2021-02-25 08:37 | PCM.OPRPT ---
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 Informed consent was obtained. The patient was taken the operating room and placed in the operating room table. Anesthesia monitored the head, neck, airway, IV access and vital signs throughout the case. Once anesthesia was actively administered the patient was placed into dorsolithotomy position and was prepped and draped in usual sterile fashion. The cystoscope was inserted through the urethra under direct visualization into the urinary bladder. This cystic lesion is just lateral to the left ureteral orifice. Using the flexible biopsy forceps it was grasped and removed in its entirety. The base was fulgurated for hemostatic control. No other abnormalities were identified. At this time the patient's bladder was emptied and she was positioned appropriately for the lithotripsy. The stone was easily identified alongside her indwelling ureteral stent. 3000 shocks were applied to the stone which appeared to be well fragmented at the conclusion of the case. The patient was then awakened and taken the recovery room in good condition. There were no complications during this procedure. Grafts/Implants Used: none Complications none Admit VTE Documentation VTE Present on Admission: Yes VTE Mechan Device Prophylaxis: SCD's VTE Pharm Prophylaxis ordered?: Yes
[2021-02-25] MEDS: Ciprofloxacin 400 MG/200 ML BAG 200 MG IV (08:51)
--- NOTE | 2021-02-25 08:55 | BLA_PTH ---
PATIENT: LAUREN [place]IVERA [place] [facility] [place][id number] AGE/SX: 76/F ROOM: RE02/25/[address]: Dr. Becki Lorenz MD : 1945 BED: DIS: 02/25/2021 SPEC #: [id number] RECD: 02/25/21 10:23 STATUS: ELAN DEBORA #: [id number] SAMEER: 02/25/21 08:[address]: Becki Lorenz DEPT: SURGICAL PATHOLOGY RECD BY: Ibis Aponte ENTERED: 02/25/21 12:31 SP TYPE: BLADDER BX OTHR DR: Dr. Brooks Frank MD Tissues: Urinary bladder, NOS Procedures: Surgery Specimen Level IV HEADER OPERATION: ESWL PRE-OP DIAGNOSIS: Lesion of urinary bladder, obstruction of left ureteropelvic junction due to stone TISSUE SUBMITTED: Bladder biopsy MICROSCOPIC DIAGNOSIS Bladder lesion, biopsy: A fragment of urothelial mucosa with focal epithelial hyperplasia and mild atypia. Negative for malignancy. See comment. ENEIDA:asad 02/28/2021 COMMENT Detrusor muscle is not seen in the specimen. Immunohistochemistry ([id number]) supports the above diagnosis. Clinical correlation and appropriate follow up are necessary. Case has been reviewed in consultation with Dr. Carlson who concurs with the above diagnosis. IDC:AM MICROSCOPIC DESCRIPTION Slides are reviewed. GROSS DESCRIPTION Received in fixative is one container labeled with the patient's name and designated bladder biopsy. The specimen consists of one irregular fragment of light rodriguez soft tissue that measures 0.2 x 0.1 x 0.1 cm. The specimen is totally submitted in one cassette. / ENEIDA:asad 02/25/2021 TC:5 CPT: 81681
[2021-02-25 09:05] LABS: Bedside Glucose 154 mg/dL (70-110)
[2021-02-25 10:00] VITALS: BP 139/74; BP 153/86; PULSE 81; RESP 18; TEMP 35.8; O2SAT 95
[2021-02-25 10:15] VITALS: BP 139/74; BP 154/69; PULSE 75; RESP 16; O2SAT 96
[2021-02-25 10:30] VITALS: BP 139/74; BP 148/69; PULSE 75; RESP 16; O2SAT 96
[2021-02-25 10:45] VITALS: BP 139/74; BP 148/61; PULSE 69; RESP 16; TEMP 35.8; O2SAT 97
[2021-02-25 11:27] VITALS: BP 139/74; BP 166/66; PULSE 86; RESP 16; TEMP 36.2; O2SAT 97
== END 2021-02-25 23:59 | disposition home or self-care (01) ==
LOC: SDC 07:33 → AC 07:34
PROVIDERS: PCP Family Medicine; Referring Provider Urology; Visit Provider Urology
PROC: (CPT 50590; principal; 2021-02-25 08:40)
PROC: 0TBB8ZX Excision of Bladder, Via Natural or Artificial Opening Endoscopic, Diagnostic (ICD-10-PCS; CPT 52204; 2021-02-25 08:40)
DX: N32.89 Other specified disorders of bladder (principal); E11.9 Type 2 diabetes mellitus without complications; N20.1 Calculus of ureter; E78.00 Pure hypercholesterolemia, unspecified; F32.A Depression, unspecified; F41.9 Anxiety disorder, unspecified; Z79.84 Long term (current) use of oral hypoglycemic drugs; Z79.82 Long term (current) use of aspirin; Z79.899 Other long term (current) drug therapy
CPT/HCPCS: 52204; 00910; 50590; 82962; 88305; 88341; 88342; J7120; J0744; J2405

== ENCOUNTER 2021-03-08 13:13 | Outpatient (CLI) | payer MEDICARE, OTHER, SELFPAY ==
--- NOTE | 2021-03-08 13:22 | RAD_ITS ---
STUDY: X-RAY - ABDOMEN/PELVIS REASON FOR EXAM: Female, 76 years old. KUB TECHNIQUE: Single AP view of the abdomen / pelvis. COMPARISON: Comparison is made with prior study dated 01/14/2021. FINDINGS: There is a moderate amount of colonic fecal material. A left-sided double-J stent catheter is seen with the proximal tip in the region of the left renal pelvis and the distal tip in the left-sided bladder. The previously seen calculus in the mid portion of the left side of the abdomen is not seen at this time. Normal soft tissue structures. There are diffuse degenerative changes of the visualized lumbar spine. Mild levoscoliosis. RAD/Abdomen Single View IMPRESSION: A left-sided double-J stent catheter is seen. No abnormal calcification is seen overlying the course of the left ureter. Electronically Signed: Ariel Galicia MD at 15:31 EST ,
== END 2021-03-08 23:59 | disposition short-term general hospital (02) ==
LOC: MTRAD 13:21
PROVIDERS: PCP Family Medicine; Referring Provider Urology; Visit Provider Urology
DX: N20.0 Calculus of kidney (principal)
CPT/HCPCS: 74018

== ENCOUNTER 2021-05-05 07:41 | Outpatient (CLI) | payer MEDICARE, OTHER, SELFPAY ==
[2021-05-05 10:20] LABS: Absolute Lymphocyte Count 2.06 X10^3/uL (0.83-4.51); Absolute Neutrophil Count 3.3 X10^3/uL (2.0-7.7); Basophil# 0.05 X10^3/uL; Basophil% 0.8 % (0-1); Eosinophils% 6.4 % (0-5); Hematocrit 42.8 % (37-47); Hemoglobin 14.3 g/dL (12.0-15.0); Lymphocyte # 2.06 X10^3/ul (0.83-4.51); Lymphocyte % 32.8 % (19-41); Mean Corp Hgb Conc 33.4 g/dL (32-36); Mean Corpuscular Hgb 29.9 pg (27.0-32.0); Mean Corpuscular Volume 89.5 fL (81-99); Mean Platelet Vol. 10.5 fl (6.2-12.0); Monocyte# 0.46 X10^3/uL; Monocyte% 7.3 % (0-10); NRBC Flagged by Analyzer 0 % (0-5); Neutrophil # 3.28 X10^3/uL (2.7-7.7); Neutrophil % 52.2 % (47-70); Platelet Count 296 K/mm3 (150-450); RBC Distribution Width CV 13.5 % (11.6-14.6); RBC Distribution Width SD 44.3 fl (35.1-43.9); Red Blood Count 4.78 M/mm3 (4.2-5.4); White Blood Count 6.3 K/mm3 (4.4-11.0)
[2021-05-05 10:47] LABS: ALB/GLOB Ratio 1.3 RATIO (0.9-2.4); AST(SGOT) 13 U/L (15-37); Alanine Aminotransfer ALT/SGPT 26 U/L (13-56); Alkaline Phosphatase 77 U/L (45-117); Anion Gap 6 (5-15); BUN 14 mg/dL (7-18); BUN/Creat Ratio 21.9 RATIO (10-20); Calcium,Total 8.7 mg/dL (8.5-10.1); Chloride 103 mmol/L (98-107); Cholesterol 119 mg/dL (200); Creatinine, Serum 0.64 mg/dL (0.55-1.02); EST Glomerular Filtration Rate 96 mL/min (>60); Est Glom Filt Rate - Afr Amer 117 mL/min (>60); Glucose 144 mg/dL (74-106); High Density Lipoprotein 45 mg/dL; Potassium 4.3 mmol/L (3.5-5.1); Sodium Level 137 mmol/L (136-145); Triglycerides 88 mg/dL; Very Low Density Lipoprotein 18 mg/dL (5-40)
[2021-05-05 10:48] LABS: Vitamin D,25 Hydroxy 41.7 ng/mL
[2021-05-05 10:52] LABS: Hemoglobin A1c 6.6 % (3.8-5.6)
[2021-05-05 11:04] LABS: Microalbumin,Random Urine 6.9 mg/L (NO RANGE EST.); Microalbumin:Creatinine Ratio 12.9 mg/g CRE (<30 mg/g CRE)
== END 2021-05-05 23:59 | disposition home or self-care (01) ==
LOC: MTLAB 07:42
PROVIDERS: PCP Family Medicine; Referring Provider Family Medicine; Visit Provider Family Medicine
DX: E11.69 Type 2 diabetes mellitus with other specified complication (principal); M81.0 Age-related osteoporosis without current pathological fracture
CPT/HCPCS: 36415; 80053; 80061; 82043; 82306; 82570; 83036; 85025

== ENCOUNTER → 2021-08-22 | Outpatient (CLI) | payer MEDICARE, OTHER, SELFPAY ==
[2021-08-22 09:57] LABS: Absolute Lymphocyte Count 3.09 X10^3/uL (0.83-4.51); Absolute Neutrophil Count 3.3 X10^3/uL (2.0-7.7); Basophil# 0.06 X10^3/uL; Basophil% 0.8 % (0-1); Eosinophil# 0.39 X10^3/uL; Eosinophils% 5.3 % (0-5); Hematocrit 43.1 % (37-47); Hemoglobin 14.3 g/dL (12.0-15.0); Lymphocyte # 3.09 X10^3/ul (0.83-4.51); Lymphocyte % 41.9 % (19-41); Mean Corp Hgb Conc 33.2 g/dL (32-36); Mean Corpuscular Hgb 29.7 pg (27.0-32.0); Mean Corpuscular Volume 89.6 fL (81-99); Mean Platelet Vol. 11.7 fl (6.2-12.0); Monocyte# 0.55 X10^3/uL; Monocyte% 7.5 % (0-10); NRBC Flagged by Analyzer 0 % (0-5); Neutrophil # 3.28 X10^3/uL (2.7-7.7); Neutrophil % 44.4 % (47-70); POSITIVE COUNT YES; RBC Distribution Width CV 13.9 % (11.6-14.6); RBC Distribution Width SD 45.9 fl (35.1-43.9); Red Blood Count 4.81 M/mm3 (4.2-5.4); White Blood Count 7.4 K/mm3 (4.4-11.0)
[2021-08-22 10:16] LABS: Hemoglobin A1c 6.8 % (3.8-5.6)
[2021-08-22 10:23] LABS: Differential Indicated SCAN CRITERIA MET; Platelet Estimate ADEQUATE (ADEQ)
[2021-08-22 10:34] LABS: ALB/GLOB Ratio 1.4 RATIO (0.9-2.4); AST(SGOT) 22 U/L (15-37); Alanine Aminotransfer ALT/SGPT 31 U/L (13-56); Alkaline Phosphatase 80 U/L (45-117); Anion Gap 9 (5-15); BUN 16 mg/dL (7-18); BUN/Creat Ratio 26.5 RATIO (10-20); Calcium,Total 8.9 mg/dL (8.5-10.1); Chloride 104 mmol/L (98-107); Cholesterol 160 mg/dL (200); EST Glomerular Filtration Rate 103 mL/min (>60); Est Glom Filt Rate - Afr Amer 125 mL/min (>60); Globulin 2.8 g/dL (2.2-4.2); Glucose 123 mg/dL (74-106); High Density Lipoprotein 59 mg/dL; Potassium 4.3 mmol/L (3.5-5.1); Protein, Total 6.8 g/dL (6.4-8.2); Sodium Level 140 mmol/L (136-145); Triglycerides 104 mg/dL; Very Low Density Lipoprotein 21 mg/dL (5-40)
== END | disposition home or self-care (01) ==
LOC: MFPLAB 08:16
PROVIDERS: PCP Family Medicine; Visit Provider Family Medicine
DX: E11.9 Type 2 diabetes mellitus without complications (principal)
CPT/HCPCS: 36415; 80053; 80061; 83036; 85025

== ENCOUNTER → 2022-01-02 | Outpatient (CLI) | payer MEDICARE, OTHER, SELFPAY ==
[2022-01-02 09:58] LABS: Absolute Lymphocyte Count 2.26 X10^3/uL (0.83-4.51); Absolute Neutrophil Count 3.2 X10^3/uL (2.0-7.7); Basophil# 0.04 X10^3/uL; Basophil% 0.6 % (0-1); Eosinophil# 0.34 X10^3/uL; Eosinophils% 5.5 % (0-5); Hematocrit 46.2 % (37-47); Hemoglobin 14.8 g/dL (12.0-15.0); Lymphocyte # 2.26 X10^3/ul (0.83-4.51); Lymphocyte % 36.4 % (19-41); Mean Corpuscular Hgb 29.3 pg (27.0-32.0); Mean Corpuscular Volume 91.5 fL (81-99); Mean Platelet Vol. 10.7 fl (6.2-12.0); Monocyte# 0.41 X10^3/uL; Monocyte% 6.6 % (0-10); NRBC Flagged by Analyzer 0 % (0-5); Neutrophil # 3.15 X10^3/uL (2.7-7.7); Neutrophil % 50.7 % (47-70); Platelet Count 314 K/mm3 (150-450); RBC Distribution Width CV 13.3 % (11.6-14.6); RBC Distribution Width SD 44.8 fl (35.1-43.9); Red Blood Count 5.05 M/mm3 (4.2-5.4); White Blood Count 6.2 K/mm3 (4.4-11.0)
[2022-01-02 10:24] LABS: Vitamin D,25 Hydroxy 42.8 ng/mL
[2022-01-02 10:29] LABS: ALB/GLOB Ratio 1.3 RATIO (0.9-2.4); AST(SGOT) 19 U/L (15-37); Alanine Aminotransfer ALT/SGPT 30 U/L (13-56); Albumin, Serum 4.4 g/dL (3.2-5.0); Alkaline Phosphatase 75 U/L (45-117); Anion Gap 11 (5-15); BUN 19 mg/dL (7-18); BUN/Creat Ratio 26.8 RATIO (10-20); Calcium,Total 9.2 mg/dL (8.5-10.1); Chloride 105 mmol/L (98-107); Cholesterol 138 mg/dL (200); Creatinine, Serum 0.71 mg/dL (0.55-1.02); EST Glomerular Filtration Rate 85 mL/min (>60); Est Glom Filt Rate - Afr Amer 103 mL/min (>60); Globulin 3.4 g/dL (2.2-4.2); Glucose 145 mg/dL (74-106); High Density Lipoprotein 55 mg/dL; Potassium 3.9 mmol/L (3.5-5.1); Protein, Total 7.8 g/dL (6.4-8.2); Sodium Level 137 mmol/L (136-145); Triglycerides 99 mg/dL; Very Low Density Lipoprotein 20 mg/dL (5-40)
[2022-01-02 10:38] LABS: Hemoglobin A1c 6.6 % (3.8-5.6)
[2022-01-02 13:09] LABS: Microalbumin,Random Urine 24.1 mg/L (NO RANGE EST.); Microalbumin:Creatinine Ratio 25.6 mg/g CRE (<30 mg/g CRE)
== END | disposition home or self-care (01) ==
LOC: MFPLAB 08:04
PROVIDERS: PCP Family Medicine; Visit Provider Family Medicine
DX: E11.9 Type 2 diabetes mellitus without complications (principal); M81.0 Age-related osteoporosis without current pathological fracture
CPT/HCPCS: 36415; 80053; 80061; 82043; 82306; 82570; 83036; 85025

== ENCOUNTER → 2022-01-06 | Outpatient (CLI) | payer MEDICARE, OTHER, SELFPAY ==
--- NOTE | 2022-01-06 18:56 | US_ITS ---
EXAM: US SOFT TISSUES HEAD AND NECK, THYROID CLINICAL INDICATION: NODULES TECHNIQUE: Shankar scale and color doppler imaging was performed of the thyroid gland. This report was created using [email or web address] report generation technology. COMPARISON: US Thyroid dated 11/11/2020 FINDINGS: LEFT THYROID LOBE: Left thyroid lobe measures 5.4 x 1.4 x 1.1 cm. Stable small nodules. 9 mm nodule along posterior surface of the left thyroid lobe may represent thyroid or parathyroid tissue, unchanged from prior exam. Homogeneous echotexture with normal vascularity. RIGHT THYROID LOBE: Right thyroid lobe measures 5.1 x 1.4 x 1.2 cm. No change in the 2 dominant right thyroid nodules. Homogeneous echotexture with normal vascularity. ISTHMUS: Normal portion of the isthmus measures 2 mm in AP dimension. Stable oval-shaped 12 mm nodule along the junction of the right thyroid lobe and isthmus. US/Thyroid IMPRESSION: Stable bilateral thyroid nodules. Electronically Signed: Khoi Chavez MD at 7:24 EST ,
== END | disposition home or self-care (01) ==
LOC: US 18:54
PROVIDERS: PCP Family Medicine; Referring Provider Family Medicine; Visit Provider Family Medicine
DX: E04.1 Nontoxic single thyroid nodule (principal)
CPT/HCPCS: 76536

== ENCOUNTER → 2022-04-18 | Outpatient (CLI) | payer MEDICARE, OTHER, SELFPAY ==
[2022-04-18 10:02] LABS: Absolute Lymphocyte Count 2.19 X10^3/uL (0.83-4.51); Basophil# 0.05 X10^3/uL; Basophil% 0.8 % (0-1); Eosinophil# 0.29 X10^3/uL; Eosinophils% 4.8 % (0-5); Hemoglobin 14.1 g/dL (12.0-15.0); Lymphocyte # 2.19 X10^3/ul (0.83-4.51); Lymphocyte % 35.9 % (19-41); Mean Corp Hgb Conc 32.8 g/dL (32-36); Mean Corpuscular Hgb 29.6 pg (27.0-32.0); Mean Corpuscular Volume 90.3 fL (81-99); Mean Platelet Vol. 10.4 fl (6.2-12.0); Monocyte# 0.53 X10^3/uL; Monocyte% 8.7 % (0-10); NRBC Flagged by Analyzer 0 % (0-5); Neutrophil # 3.01 X10^3/uL (2.7-7.7); Neutrophil % 49.3 % (47-70); Platelet Count 292 K/mm3 (150-450); RBC Distribution Width CV 13.2 % (11.6-14.6); RBC Distribution Width SD 44.1 fl (35.1-43.9); Red Blood Count 4.76 M/mm3 (4.2-5.4); White Blood Count 6.1 K/mm3 (4.4-11.0)
[2022-04-18 10:21] LABS: Microalbumin,Random Urine 11.4 mg/L (NO RANGE EST.); Microalbumin:Creatinine Ratio 13.9 mg/g CRE (<30 mg/g CRE)
[2022-04-18 10:30] LABS: Vitamin D,25 Hydroxy 42.4 ng/mL
[2022-04-18 10:41] LABS: ALB/GLOB Ratio 1.4 RATIO (0.9-2.4); AST(SGOT) 11 U/L (15-37); Alanine Aminotransfer ALT/SGPT 22 U/L (13-56); Albumin, Serum 4.1 g/dL (3.2-5.0); Alkaline Phosphatase 65 U/L (45-117); Anion Gap 10 (5-15); BUN 18 mg/dL (7-18); BUN/Creat Ratio 28.8 RATIO (10-20); Calcium,Total 8.9 mg/dL (8.5-10.1); Chloride 106 mmol/L (98-107); Cholesterol 106 mg/dL (200); Creatinine, Serum 0.63 mg/dL (0.55-1.02); EST Glomerular Filtration Rate 99 mL/min (>60); Est Glom Filt Rate - Afr Amer 119 mL/min (>60); Globulin 2.9 g/dL (2.2-4.2); Glucose 144 mg/dL (74-106); High Density Lipoprotein 42 mg/dL; Potassium 3.8 mmol/L (3.5-5.1); Sodium Level 139 mmol/L (136-145); Triglycerides 90 mg/dL; Very Low Density Lipoprotein 18 mg/dL (5-40)
[2022-04-18 11:03] LABS: Hemoglobin A1c 6.3 % (3.8-5.6)
== END | disposition home or self-care (01) ==
LOC: MFPLAB 08:20
PROVIDERS: PCP Family Medicine; Referring Provider Family Medicine; Visit Provider Family Medicine
DX: E11.9 Type 2 diabetes mellitus without complications (principal); M81.0 Age-related osteoporosis without current pathological fracture
CPT/HCPCS: 36415; 80053; 80061; 82043; 82306; 82570; 83036; 85025

== ENCOUNTER → 2022-04-21 | Outpatient (CLI) | payer MEDICARE, OTHER, SELFPAY ==
--- NOTE | 2022-04-21 09:15 | RAD_ITS ---
STUDY: X-RAY - ABDOMEN/PELVIS REASON FOR EXAM: Female, 77 years old. Renal stones. TECHNIQUE: Single AP view of the abdomen / pelvis onto two images. COMPARISON: Abdominal study dated March 08, 2021. FINDINGS: Normal visualized lung bases. Normal bowel gas pattern with a moderate amount of feces in the colon. There is no demonstrated free abdominal air. Left ureteral catheter has been removed. Normal soft tissue structures. Normal visualized osseous structures. RAD/Abdomen Single View IMPRESSION: Removal of left ureteral catheter. Moderate amount feces in the colon. No acute abnormality of the abdomen or pelvis. Electronically Signed: Donaldo Bermeo, at 15:40 EST ,
== END | disposition home or self-care (01) ==
LOC: MTRAD 09:06
PROVIDERS: PCP Family Medicine; Referring Provider Urology; Visit Provider Urology
DX: N20.0 Calculus of kidney (principal)
CPT/HCPCS: 74018

== ENCOUNTER → 2022-08-21 | Outpatient (CLI) | payer MEDICARE, OTHER, SELFPAY ==
[2022-08-21 10:11] LABS: Absolute Neutrophil Count 3.4 X10^3/uL (2.0-7.7); Basophil# 0.05 X10^3/uL; Basophil% 0.8 % (0-1); Eosinophil# 0.32 X10^3/uL; Hematocrit 43.4 % (37-47); Hemoglobin 14.1 g/dL (12.0-15.0); Lymphocyte % 34.2 % (19-41); Mean Corp Hgb Conc 32.5 g/dL (32-36); Mean Corpuscular Hgb 29.4 pg (27.0-32.0); Mean Corpuscular Volume 90.6 fL (81-99); Monocyte# 0.44 X10^3/uL; Monocyte% 6.8 % (0-10); NRBC Flagged by Analyzer 0 % (0-5); Neutrophil # 3.42 X10^3/uL (2.7-7.7); Platelet Count 292 K/mm3 (150-450); RBC Distribution Width CV 13.2 % (11.6-14.6); RBC Distribution Width SD 44.1 fl (35.1-43.9); Red Blood Count 4.79 M/mm3 (4.2-5.4); White Blood Count 6.4 K/mm3 (4.4-11.0)
[2022-08-21 10:41] LABS: ALB/GLOB Ratio 1.2 RATIO (0.9-2.4); AST(SGOT) 20 U/L (15-37); Alanine Aminotransfer ALT/SGPT 54 U/L (13-56); Albumin, Serum 3.7 g/dL (3.2-5.0); Alkaline Phosphatase 80 U/L (45-117); Anion Gap 5 (5-15); BUN 14 mg/dL (7-18); BUN/Creat Ratio 21.9 RATIO (10-20); Calcium,Total 8.8 mg/dL (8.5-10.1); Chloride 107 mmol/L (98-107); Cholesterol 134 mg/dL (200); Creatinine, Serum 0.64 mg/dL (0.55-1.02); EST Glomerular Filtration Rate 96 mL/min (>60); Est Glom Filt Rate - Afr Amer 116 mL/min (>60); Globulin 3.2 g/dL (2.2-4.2); Glucose 143 mg/dL (74-106); High Density Lipoprotein 56 mg/dL; Potassium 4.1 mmol/L (3.5-5.1); Protein, Total 6.9 g/dL (6.4-8.2); Sodium Level 137 mmol/L (136-145); Triglycerides 115 mg/dL; Very Low Density Lipoprotein 23 mg/dL (5-40)
[2022-08-21 10:43] LABS: Vitamin D,25 Hydroxy 43.7 ng/mL
[2022-08-21 11:22] LABS: Hemoglobin A1c 6.6 % (3.8-5.6)
== END | disposition home or self-care (01) ==
LOC: MFPLAB 08:00
PROVIDERS: PCP Family Medicine; Visit Provider Family Medicine
DX: E11.9 Type 2 diabetes mellitus without complications (principal); M81.0 Age-related osteoporosis without current pathological fracture
CPT/HCPCS: 36415; 80053; 80061; 82306; 83036; 85025

== ENCOUNTER → 2023-03-15 | Outpatient (CLI) | payer MEDICARE, OTHER, SELFPAY ==
[2023-03-15 09:52] LABS: Absolute Lymphocyte Count 2.32 X10^3/uL (0.83-4.51); Absolute Neutrophil Count 3.2 X10^3/uL (2.0-7.7); Basophil# 0.06 X10^3/uL; Basophil% 0.9 % (0-1); Eosinophil# 0.35 X10^3/uL; Eosinophils% 5.5 % (0-5); Hematocrit 43.4 % (37-47); Hemoglobin 13.8 g/dL (12.0-15.0); Lymphocyte # 2.32 X10^3/ul (0.83-4.51); Lymphocyte % 36.5 % (19-41); Mean Corp Hgb Conc 31.8 g/dL (32-36); Mean Corpuscular Hgb 28.6 pg (27.0-32.0); Mean Corpuscular Volume 89.9 fL (81-99); Mean Platelet Vol. 10.7 fl (6.2-12.0); Monocyte# 0.43 X10^3/uL; Monocyte% 6.8 % (0-10); NRBC Flagged by Analyzer 0 % (0-5); Neutrophil # 3.18 X10^3/uL (2.7-7.7); Neutrophil % 50.1 % (47-70); Platelet Count 265 K/mm3 (150-450); RBC Distribution Width CV 13.9 % (11.6-14.6); Red Blood Count 4.83 M/mm3 (4.2-5.4); White Blood Count 6.4 K/mm3 (4.4-11.0)
[2023-03-15 10:13] LABS: Hemoglobin A1c 6.6 % (3.8-5.6)
[2023-03-15 10:15] LABS: Vitamin D,25 Hydroxy 39.8 ng/mL
[2023-03-15 10:22] LABS: ALB/GLOB Ratio 1.3 RATIO (0.9-2.4); AST(SGOT) 12 U/L (15-37); Alanine Aminotransfer ALT/SGPT 25 U/L (13-56); Alkaline Phosphatase 66 U/L (45-117); Anion Gap 5 (5-15); BUN 14 mg/dL (7-18); Calcium,Total 9.1 mg/dL (8.5-10.1); Chloride 108 mmol/L (98-107); Cholesterol 115 mg/dL (200); Creatinine, Serum 0.64 mg/dL (0.55-1.02); EST Glomerular Filtration Rate 97 mL/min (>60); Est Glom Filt Rate - Afr Amer 117 mL/min (>60); Globulin 3.1 g/dL (2.2-4.2); Glucose 130 mg/dL (74-106); High Density Lipoprotein 52 mg/dL; Potassium 4.3 mmol/L (3.5-5.1); Protein, Total 7.1 g/dL (6.4-8.2); Sodium Level 139 mmol/L (136-145); Triglycerides 79 mg/dL; Very Low Density Lipoprotein 16 mg/dL (5-40)
[2023-03-15 10:59] LABS: Microalbumin,Random Urine 7.3 mg/L (NO RANGE EST.); Microalbumin:Creatinine Ratio 14.3 mg/g CRE (<30 mg/g CRE)
== END | disposition home or self-care (01) ==
LOC: MTLAB 08:07
PROVIDERS: PCP Family Medicine; Referring Provider Family Medicine; Visit Provider Family Medicine
DX: E11.69 Type 2 diabetes mellitus with other specified complication (principal); M81.0 Age-related osteoporosis without current pathological fracture
CPT/HCPCS: 36415; 80053; 80061; 82043; 82306; 82570; 83036; 85025

== ENCOUNTER → 2023-06-14 | Outpatient (CLI) | payer MEDICARE, OTHER, SELFPAY ==
[2023-06-14 10:43] LABS: Bacteria 0 SEEN /hpf (None Seen); Mucous, Urine 0 SEEN /hpf (<or=2+); Red Blood Cells-Urine 0 SEEN /hpf (0-5); Squamous Epithelial Cells - UA 0 SEEN /hpf (5-10); White Blood Cells 0 SEEN /hpf (0-5)
[2023-06-14 12:25] LABS: Absolute Lymphocyte Count 1.12 X10^3/uL (0.83-4.51); Absolute Neutrophil Count 5.1 X10^3/uL (2.0-7.7); Basophil# 0.04 X10^3/uL; Basophil% 0.6 % (0-1); Eosinophil# 0.23 X10^3/uL; Eosinophils% 3.3 % (0-5); Hematocrit 43.2 % (37-47); Hemoglobin 14.1 g/dL (12.0-15.0); Lymphocyte # 1.12 X10^3/ul (0.83-4.51); Lymphocyte % 16.1 % (19-41); Mean Corp Hgb Conc 32.6 g/dL (32-36); Mean Corpuscular Hgb 29.7 pg (27.0-32.0); Mean Corpuscular Volume 90.9 fL (81-99); Mean Platelet Vol. 10.5 fl (6.2-12.0); Monocyte% 7.2 % (0-10); NRBC Flagged by Analyzer 0 % (0-5); Neutrophil # 5.06 X10^3/uL (2.7-7.7); Neutrophil % 72.7 % (47-70); Platelet Count 252 K/mm3 (150-450); RBC Distribution Width CV 13.2 % (11.6-14.6); RBC Distribution Width SD 43.9 fl (35.1-43.9); Red Blood Count 4.75 M/mm3 (4.2-5.4)
[2023-06-14 12:40] LABS: ALB/GLOB Ratio 1.4 RATIO (0.9-2.4); AST(SGOT) 12 U/L (15-37); Alanine Aminotransfer ALT/SGPT 20 U/L (13-56); Albumin, Serum 4.2 g/dL (3.2-5.0); Alkaline Phosphatase 65 U/L (45-117); Anion Gap 7 (5-15); BUN 20 mg/dL (7-18); BUN/Creat Ratio 29.7 RATIO (10-20); Calcium,Total 8.9 mg/dL (8.5-10.1); Chloride 106 mmol/L (98-107); Cholesterol 127 mg/dL (200); Color, Urine Yellow (Yellow); Creatinine, Serum 0.67 mg/dL (0.55-1.02); EST Glomerular Filtration Rate 90 mL/min (>60); Est Glom Filt Rate - Afr Amer 109 mL/min (>60); Glucose 169 mg/dL (74-106); Glucose, Dipstick 1000 mg/dl (Normal); High Density Lipoprotein 49 mg/dL; Ketone-Dipstick 5 mg/dl (Negative); Leukocyte Esterase-Dipstick Negative /ul (Negative); Nitrite-Dipstick Negative (Negative); Occult Blood-Urine Negative /ul (Negative); Protein, Total 7.2 g/dL (6.4-8.2); Protein-Dipstick Negative (Negative); Sodium Level 136 mmol/L (136-145); Specific Gravity, Urine 1.015 (1.002-1.030); Triglycerides 173 mg/dL; Urine Bilirubin Dipstick Negative (Negative); Urine Clarity Clear (Clear); Urine Urobilinogen Normal (Normal); Very Low Density Lipoprotein 35 mg/dL (5-40)
[2023-06-14 12:43] LABS: Vitamin D,25 Hydroxy 36.3 ng/mL
[2023-06-14 12:57] LABS: Microalbumin,Random Urine 6.6 mg/L (NO RANGE EST.); Microalbumin:Creatinine Ratio 20.9 mg/g CRE (<30 mg/g CRE)
[2023-06-14 14:23] LABS: Hemoglobin A1c 6.4 % (3.8-5.6)
== END | disposition home or self-care (01) ==
LOC: MFPLAB 10:41
PROVIDERS: PCP Family Medicine; Visit Provider Family Medicine
DX: E11.8 Type 2 diabetes mellitus with unspecified complications (principal); M81.0 Age-related osteoporosis without current pathological fracture
CPT/HCPCS: 36415; 80053; 80061; 81001; 82043; 82306; 82570; 83036; 85025

== ENCOUNTER → 2023-07-04 | Outpatient (CLI) | payer MEDICARE, OTHER, SELFPAY ==
--- NOTE | 2023-07-04 11:20 | RAD_ITS ---
EXAM: XR LUMBOSACRAL SPINE, 2 OR 3 VIEWS CLINICAL INDICATION: lbp TECHNIQUE: Frontal and lateral views of the lumbar spine and sacrum. COMPARISON: No relevant prior studies available. FINDINGS: VERTEBRAE: Mild levoscoliosis centered at the L2-3 level. No acute fracture or subluxation. DISC SPACES: Multilevel disc space narrowing most pronounced at L2-3 and L4-5. Prominent facet arthropathy also noted at L4-5 and L5-S1. RAD/Lumbar Spine 2 or 3 Views IMPRESSION: No acute abnormality. Prominent spondylosis. Electronically Signed: Khoi Chavez MD at 11:50 EDT ,
== END | disposition home or self-care (01) ==
LOC: MTRAD 11:20
PROVIDERS: PCP Family Medicine; Referring Provider Physician Assistant; Visit Provider Physician Assistant
DX: M54.50 Low back pain, unspecified (principal)
CPT/HCPCS: 72100

== ENCOUNTER 2023-07-06 18:18 | Emergency (ER) | payer MEDICARE, OTHER, SELFPAY ==
[2023-07-06 18:19] VITALS: BP 159/62; PULSE 85; RESP 22; TEMP 36.3; O2SAT 98; BMI 23.1
[2023-07-06] MEDS: Ondansetron 4 MG/2 ML Vial IV (19:04)
[2023-07-06] MEDS: Morphine 4 MG/ML Syringe IV ×2 (19:04→21:11)
--- NOTE | 2023-07-06 19:04 | EX.ED.DYSGE1 ---
HPI <ANGÉLICA Dutton - Last Filed: 07/06/23 20:54> History of Present Illness Chief Complaint: Lower Extremity Injury Narrative Narrative: Patient is a 78-year-old female with history of diabetes, hypertension, who presents to the emerged part with left leg pain that rates down her leg. Patient states that on Sunday which was 4 days ago, she did a lot of work in the yard. She states she lifted, and definitely overdid it. Patient states Sunday she started having some pain to her upper buttock, lower back. Sunday the pain started getting severe and going down her leg. Patient did [facility], was placed on prednisone and Skelaxin. Patient did have x-rays which showed some degenerative disc disease. Patient states the pain medicine are not working, she is also on gabapentin. She is here for evaluation. She denies any bowel or bladder cons, denies any saddle paresthesia. [facility] <ANGÉLICA Dutton - Last Filed: 07/06/23 20:54> [facility] Medical History (Updated 07/07/23 @ 02:[address] Deion Garcia, DO) Lumbar radiculopathy Lumbar strain Sciatic pain Lesion of urinary bladder Obstruction of left ureteropelvic junction (UPJ) due to stone Wears glasses Depression Anxiety Diabetes High cholesterol Restless legs Back pain Dietary restriction Non-smoker Hx of malignant carcinoid tumor History of stress test History of echocardiogram Home Medications ?Medication ?Instructions ?Recorded ?Last Taken ?Type aspirin 81 mg tablet,delayed 81 mg PO DAILY 01/19/21 01/24/21 History release atorvastatin 20 mg tablet 20 mg PO QHS 01/19/21 02/24/21 History calcium 500 mg tablet 500 mg PO DAILY 01/19/21 02/24/21 History empagliflozin 25 mg tablet 25 mg PO DAILY 01/19/21 02/24/21 History (Jardiance) escitalopram oxalate 10 mg tablet 10 mg PO DAILY 01/19/21 02/24/21 History (Lexapro) metformin 500 mg tablet 500 mg PO Q6H 01/19/21 02/24/21 History metaxalone 800 mg tablet 800 mg PO TID PRN muscle pain #20 07/04/23 Unknown Rx tabs prednisone 10 mg tablet 10 mg PO DAILY #30 tabs 07/04/23 Unknown Rx gabapentin 300 mg capsule 300 mg PO TID 30 days #90 caps 07/07/23 Unknown Rx oxycodone-acetaminophen 5 mg-325 1 tab PO Q6H PRN pain 5 days #20 07/07/23 Unknown Rx mg tablet (Percocet) tabs Allergy/AdvReac Type Severity Reaction Status Date / Time cefdinir (From Omnicef) Allergy Swelling/FACIAL Verified 07/06/23 18:20 AND HIVES Surgical History Hx of cystoscopy Hx of parathyroidectomy Hx of colonoscopy History of cystoscopy History of laparotomy Hx of arthroscopic knee surgery Hx of shoulder surgery Hx of hysterectomy, total Social History Smoking Status: Never smoker ROS <JODY DuttonC - Last Filed: 07/06/23 20:54> ROS ED ROS Narrative Constitutional: Negative for fever, chills, weight loss, weakness Eyes: Negative for vision loss, vision change, double vision ENT: Negative for any sore throat, ear pain, congestion Cardiovascular: Negative for any chest pain, tightness, palpitations Respiratory: Negative for any cough, sputum production, hemoptysis, dyspnea, dyspnea on exertion, orthopnea Gastrointestinal: Negative for any abdominal pain, nausea, vomiting, diarrhea, constipation, blood in stool, blood in vomit : Negative for any urinary frequency, dysuria, retention, blood in urine Muscle skeletal: Negative for any neck pain. Positive for left lower back pain, left leg pain Neurological: Negative for any headache, syncope, dizziness Skin: Negative for any rashes, itching, abrasions, lacerations Psychiatric: Negative for any depression, anxiety, stress, suicidal ideation, homicidal ideation Hematologic: Negative for any excessive bruising, easy bleeding EXAM <JODY DuttonC - Last Filed: 07/06/23 20:54> Physical Exam Narrative Exam Narrative: Vital signs reviewed. HEET: Head normocephalic atraumatic, TMs clear bilaterally. Posterior pharynx is clear, moist mucous membranes. Nares clear bilaterally. Neck: Supple with no lymphadenopathy or tenderness. No signs of meningismus. Cardiac: Regular rate and rhythm no murmurs gallops or rubs, equal peripheral pulses bilaterally. Respiratory: Lungs clear to auscultation bilaterally. No chest tenderness. Abdomen: Soft, nontender, nondistended. No abdominal bruit or pulsatile masses. No hepatosplenomegaly Extremities: No peripheral edema, no signs of gross trauma or deformity. Active full range of motion of all extremities. +2 pedal pulse. Positive straight leg test. Neuro: Cranial nerves II through XII intact, no focal neurological deficits. Skin: Clean dry and intact with no rash, purpura, petechiae, vesicles or pustules. Backs/flank: No CVA tenderness, no midline spinal tenderness, no deformity. Psych: Normal mood and affect. No SI, HI or acute psychosis. Const Vital Signs: 07/06/23 18:19 07/06/23 22:44 07/07/23 00:55 Temperature 97.4 F L Temperature Source Temporal Pulse Rate 85 85 65 Respiratory Rate 22 H 15 18 Blood Pressure 159/62 H 142/72 H 168/70 H Blood Pressure Mean 94 95 102 Pulse Ox 98 95 97 Oxygen Delivery Method Room Air Room Air Room Air 07/07/23 02:24 Temperature 96.4 F L Temperature Source Pulse Rate 67 Respiratory Rate 16 Blood Pressure 140/64 H Blood Pressure Mean 89 Pulse Ox 96 Oxygen Delivery Method <Dr. George Oliveros MD - Last Filed: 07/07/23 13:09> Physical Exam Const Vital Signs: 07/06/23 18:19 07/06/23 22:44 07/07/23 00:55 Temperature 97.4 F L Temperature Source Temporal Pulse Rate 85 85 65 Respiratory Rate 22 H 15 18 Blood Pressure 159/62 H 142/72 H 168/70 H Blood Pressure Mean 94 95 102 Pulse Ox 98 95 97 Oxygen Delivery Method Room Air Room Air Room Air 07/07/23 02:24 Temperature 96.4 F L Temperature Source Pulse Rate 67 Respiratory Rate 16 Blood Pressure 140/64 H Blood Pressure Mean 89 Pulse Ox 96 Oxygen Delivery Method <Dr. Deion Garcia DO - Last Filed: 07/07/23 02:20> Physical Exam Const Vital Signs: 07/06/23 18:19 07/06/23 22:44 07/07/23 00:55 Temperature 97.4 F L Temperature Source Temporal Pulse Rate 85 85 65 Respiratory Rate 22 H 15 18 Blood Pressure 159/62 H 142/72 H 168/70 H Blood Pressure Mean 94 95 102 Pulse Ox 98 95 97 Oxygen Delivery Method Room Air Room Air Room Air 07/07/23 02:24 Temperature 96.4 F L Temperature Source Pulse Rate 67 Respiratory Rate 16 Blood Pressure 140/64 H Blood Pressure Mean 89 Pulse Ox 96 Oxygen Delivery Method [facility] <Merritt LafleurKRISHAN-C - Last Filed: 07/06/23 20:54> [facility] Radiography Diagnostic Testing: Clinical Impression(s) from Imaging Studies Lumbar Spine MRI 07/06/23 20:43 IMPRESSION: 1. Grade 1 anterolisthesis of L4 and L5, unroofed disc material and broad-based concentric disc protrusion is present. There is mild canal stenosis however significant compromise lateral recesses and neural foramina at this level with resulting nerve root compression. 2. LEFT lateral disc bulge/protrusion at L3-4 contacting the emerging LEFT L3 nerve root lateral to LEFT neural foramen with potential nerve root impingement. 3. Discogenic endplate changes at L2-3 and broad-based disc bulge without evidence of nerve root impingement. 4. Normal appearance the visualized spinal cord and conus. Electronically Signed: Keny Salvador MD at 23:29 EDT , Treatment and Re-Evaluation :: Differential diagnosis includes however is not limited to: Sciatica, lumbar radiculopathy, lumbar compression fracture Patient appears to be in mild distress secondary to pain in the left lower back, that is going down the left leg. Vital signs are stable, patient is nontoxic. Patient presents the emerged part with worsening pain in the left lower back, radiates down the left leg. Patient will receive an IV, patient will receive IV Zofran, morphine. Patient will be reevaluated On reevaluation, the patient was feeling better. Patient states her pain went down from a 10 to a 7. Patient statesshe feels that she can move easier. On reevaluation, the patient was still having significant pain, patient does have some weakness to the quadricep area however I am not sure if this is weakness or if this is secondary to pain. I do believe the patient would benefit from emergent MRI to see if the symptoms are related to a herniation that can be treated conservatively or if surgical intervention is needed. Patient will be redosed with IV morphine. <Dr. George Oliveros MD - Last Filed: 07/07/23 13:09> [facility] Narrative Medical decision making narrative: I have personally performed a face to face assessment of the patient and have reviewed the FELISA Note. I performed a substantive portion of the visit including all aspects of the following. My trin[place] findings include: History is remarkable for 3 days of pain. Pain is in L3-4 dermatome. Patient has bowel bladder dysfunction. Patient denies saddle paresthesia or anesthesia. Patient denies foot drop. Patient. Up and down steps. She complains of significant pain. She denies recent dental procedure. She denies fever, chills night sweats. She does have history of diabetes. Exam is remarkable for pain along the L3-4 dermatome. Absent patellar reflex on the left. Patellar reflex on the right is 2+. Ankle reflexes 2+ bilaterally. EHLs intact bilaterally. Able to walk on heels and toes. Gait observed with no foot drop. 1 legged squat was did not perform well on left side. Unable to determine this is due to pain or weakness. Patient does have a positive femoral stretch test on the left with crossover when testing on the right. This is very specific for herniated disc L3-4. Medical Decision Making since patient has neurologic deficit severe pain will obtained emergent MRI to determine if this can be treated conservatively versus surgically. Other additions or changes: MRI will not be completed prior to the completion of my shift. Disposition be turned over to the night physician Dr. Deion Garcia. Radiography Diagnostic Testing: Clinical Impression(s) from Imaging Studies Lumbar Spine MRI 07/06/23 20:43 IMPRESSION: 1. Grade 1 anterolisthesis of L4 and L5, unroofed disc material and broad-based concentric disc protrusion is present. There is mild canal stenosis however significant compromise lateral recesses and neural foramina at this level with resulting nerve root compression. 2. LEFT lateral disc bulge/protrusion at L3-4 contacting the emerging LEFT L3 nerve root lateral to LEFT neural foramen with potential nerve root impingement. 3. Discogenic endplate changes at L2-3 and broad-based disc bulge without evidence of nerve root impingement. 4. Normal appearance the visualized spinal cord and conus. Electronically Signed: Keny Salvador MD at 23:29 EDT , <Dr. Deion Garcia, DO - Last Filed: 07/07/23 02:20> [facility] Radiography Diagnostic Testing: Clinical Impression(s) from Imaging Studies Lumbar Spine MRI 07/06/23 20:43 IMPRESSION: 1. Grade 1 anterolisthesis of L4 and L5, unroofed disc material and broad-based concentric disc protrusion is present. There is mild canal stenosis however significant compromise lateral recesses and neural foramina at this level with resulting nerve root compression. 2. LEFT lateral disc bulge/protrusion at L3-4 contacting the emerging LEFT L3 nerve root lateral to LEFT neural foramen with potential nerve root impingement. 3. Discogenic endplate changes at L2-3 and broad-based disc bulge without evidence of nerve root impingement. 4. Normal appearance the visualized spinal cord and conus. Electronically Signed: Keny Salvador MD at 23:29 EDT , Treatment and Re-Evaluation :: Differential diagnosis includes however is not limited to: Sciatica, lumbar radiculopathy, lumbar compression fracture Patient appears to be in mild distress secondary to pain in the left lower back, that is going down the left leg. Vital signs are stable, patient is nontoxic. Patient presents the emerged part with worsening pain in the left lower back, radiates down the left leg. Patient will receive an IV, patient will receive IV Zofran, morphine. Patient will be reevaluated On reevaluation, the patient was feeling better. Patient states her pain went down from a 10 to a 7. Patient statesshe feels that she can move easier. On reevaluation, the patient was still having significant pain, patient does have some weakness to the quadricep area however I am not sure if this is weakness or if this is secondary to pain. I do believe the patient would benefit from emergent MRI to see if the symptoms are related to a herniation that can be treated conservatively or if surgical intervention is needed. Patient will be redosed with IV morphine. The patient was signed out to me while awaiting MRI results. MRI results showed broad-based concentric disc protrusion at L4-L5 and L3-L4 with nerve root compression consistent with her history and exam. We reached out to spine surgery multiple times without any return of our pages. The patient reported feeling better after receiving Dilaudid and gabapentin. She was able to walk to and from the bathroom. At this point she is neurovascularly intact she is able to ambulate and hemodynamically stable. She does not want to stay in the ER any longer waiting for potential spine surgery to return a page. Therefore she will be given symptomatic medication and can follow-up on an outpatient basis Discharge Plan Triage Chief Complaint: Lower Extremity Injury ED Midlevel Provider: Merritt Lafleur ED Provider: George Oliveros Dx/Rx/DC Orders Clinical Impression: Lumbar radiculopathy, Lumbar herniated disc Instructions: Understanding Lumbar Radiculopathy, ED Herniated Intervertebral Disk Prescriptions: New oxycodone-acetaminophen [Percocet] 5-325 mg tablet 1 tab PO Q6H PRN (Reason: pain) 5 Days Qty: 20 0RF gabapentin 300 mg capsule 300 mg PO TID 30 Days Qty: 90 0RF No Action prednisone 10 mg tablet 10 mg PO DAILY Qty: 30 0RF Rx Instructions: 4 tablets daily x3 days, then 3 tablets daily x3 days, then 2 tablets daily x3 days, then 1 tablet daily x3 days metaxalone 800 mg tablet 800 mg PO TID PRN (Reason: muscle pain) Qty: 20 0RF metformin 500 mg Tablet 500 mg PO Q6H atorvastatin 20 mg Tablet 20 mg PO QHS calcium 500 mg Tablet 500 mg PO DAILY aspirin 81 mg Tablet,Delayed Release (Dr/Ec) 81 mg PO DAILY escitalopram oxalate [Lexapro] 10 mg Tablet 10 mg PO DAILY Jardiance 25 mg Tablet 25 mg PO DAILY Primary Care Provider: Brooks Frank Referrals: Brooks Frank MD [Primary Care Provider] - Antonio Willett DO [Med Staff - Active Staff] - Activity Restrictions/Additional Instructions: Please follow-up with spine surgery to discuss need for surgical intervention secondary to your herniated disc with nerve root compression. If your pain is not controlled or you have worsening of symptoms or any further concerns please return to the ER for repeat evaluation Print Language: [place] Disposition Disposition: Home, Self Care Discharge Date/Time: 07/07/23 02:30
--- NOTE | 2023-07-06 20:43 | MRI_ITS ---
STUDY: MRI LUMBAR SPINE WITHOUT CONTRAST REASON FOR EXAM: Female, 78 years old. L3-4 radiculopathy, absent patellar reflex, apurva -- Quadricep weakness TECHNIQUE: Standardized fat and water weighted pulse sequences were obtained in the sagittal and axial planes. Noncontrast images obtained. Contrast: No contrast administered COMPARISON: Plain films examination of 07/04/2023 FINDINGS: Vertebral bodies and alignment. 1. Vertebral body height is maintained. There is subtle grade 1 anterolisthesis of L4 and L5. Additional note of a levoscoliotic curvature centered at L3-4 estimated at 15 degrees. 2. Multilevel disc changes are present, no fractures, or destructive marrow replacement process. 3. Paraspinous soft tissue planes have normal appearance. Normal appearance of the muscular fascial planes of the erector spinae. 4. Normal appearance of the sacrum and sacroiliac joints. 5. Bilateral perihilar renal cysts are present. Intervertebral disks levels. T12-L1: Normal endplates. Normal disc height, hydration and morphology. Normal bilateral facet joints. Normal central canal and bilateral lateral recesses. Normal bilateral intervertebral neural foramina. Endplate: No focal endplate marrow changes or endplate deformity. L1-2: Mild disc desiccation without disc herniation or canal stenosis. Neural foramina are widely patent. Endplate: No focal endplate marrow changes or endplate deformity. L2-3: Disc desiccation, loss of disc height, significant discogenic endplate changes consistent with Modic type II changes. There is broad-based disc bulge and osteophyte complex with deformity of the anterior epidural space, central canal is maintained at 9 mm. There is narrowing of the neural foramina bilaterally. Endplate: Modic type II endplate changes present at L2 and L3. L3-4: Mild disc desiccation, no disc herniation canal or foraminal stenosis. There is a LEFT lateral bulge/protrusion which contacts the emerging L3 nerve root lateral to LEFT neural foramen. Facet and ligament flavum hypertrophic changes are present. Endplate: No focal endplate marrow changes or endplate deformity. L4-5: Disc space narrowing, grade 1 anterolisthesis. Unroofed disc material is present. There is a broad-based a disc bulge/borderline protrusion with deformity of the anterior epidural space. There is maintenance of central canal of approximately 8 mm however compression of lateral recesses bilaterally and bilateral foraminal stenosis noted. Facet hypertrophic changes. Endplate: Mild grade 2 Modic changes present. L5-S1: Normal endplates. Normal disc height, hydration and morphology. Normal bilateral facet joints. Normal central canal and bilateral lateral recesses. Normal bilateral intervertebral neural foramina. Endplate: No focal endplate marrow changes or endplate deformity. Spinal cord: Normal appearance of the spinal cord and conus. Conus is located at L1. Cauda equina has normal appearance. No evidence of cord compression or edema. No intramedullary signal abnormality noted. Paraspinous soft tissues: Normal visualized paraspinous soft tissue structures. MRI/Spine Lumbar (Routine) IMPRESSION: 1. Grade 1 anterolisthesis of L4 and L5, unroofed disc material and broad-based concentric disc protrusion is present. There is mild canal stenosis however significant compromise lateral recesses and neural foramina at this level with resulting nerve root compression. 2. LEFT lateral disc bulge/protrusion at L3-4 contacting the emerging LEFT L3 nerve root lateral to LEFT neural foramen with potential nerve root impingement. 3. Discogenic endplate changes at L2-3 and broad-based disc bulge without evidence of nerve root impingement. 4. Normal appearance the visualized spinal cord and conus. Electronically Signed: Keny Salvador MD at 23:29 EDT ,
[2023-07-06 22:44] VITALS: BP 142/72; PULSE 85; RESP 15; O2SAT 95
[2023-07-07] MEDS: HYDROmorphone 1 MG/ML Syringe IV (00:50)
[2023-07-07] MEDS: Gabapentin 300 MG Capsule PO (00:50)
[2023-07-07 00:55] VITALS: BP 168/70; PULSE 65; RESP 18; O2SAT 97
[2023-07-07 02:24] VITALS: BP 140/64; PULSE 67; RESP 16; TEMP 35.8; O2SAT 96
[2023-07-07] MEDS: Oxycodone/Apap 5/325 Tablet PO (02:26)
== END 2023-07-07 02:30 | disposition home or self-care (01) ==
PROVIDERS: Emergency Provider Emergency Medicine; PCP Family Medicine; Visit Provider Emergency Medicine
DX: M51.16 Intervertebral disc disorders with radiculopathy, lumbar region (principal); E11.9 Type 2 diabetes mellitus without complications; I10 Essential (primary) hypertension; E78.00 Pure hypercholesterolemia, unspecified; Z79.82 Long term (current) use of aspirin; Z79.84 Long term (current) use of oral hypoglycemic drugs; Z79.899 Other long term (current) drug therapy
CPT/HCPCS: 99283; 72148; A4216; J2405

== ENCOUNTER 2023-07-08 09:16 | Inpatient (IN) | payer MEDICARE, OTHER, SELFPAY ==
[2023-07-08 09:17] VITALS: BP 160/67; PULSE 73; RESP 16; TEMP 36.1; O2SAT 100
[2023-07-08] MEDS: HYDROmorphone 1 MG/ML Syringe IV (11:28)
[2023-07-08] MEDS: Ondansetron 4 MG/2 ML Vial IV (11:28)
[2023-07-08 12:01] LABS: Anion Gap 13 (5-15); BUN 21 mg/dL (7-18); BUN/Creat Ratio 39.8 RATIO (10-20); Calcium,Total 9.4 mg/dL (8.5-10.1); Chloride 103 mmol/L (98-107); Creatinine, Serum 0.53 mg/dL (0.55-1.02); EST Glomerular Filtration Rate 120 mL/min (>60); Est Glom Filt Rate - Afr Amer 145 mL/min (>60); Glucose 221 mg/dL (74-106); Potassium 3.7 mmol/L (3.5-5.1); Sodium Level 135 mmol/L (136-145)
[2023-07-08 12:10] LABS: Absolute Lymphocyte Count 0.92 X10^3/uL (0.83-4.51); Absolute Neutrophil Count 7.4 X10^3/uL (2.0-7.7); Basophil# 0.02 X10^3/uL; Basophil% 0.2 % (0-1); Eosinophil# 0.03 X10^3/uL; Eosinophils% 0.3 % (0-5); Hematocrit 43.1 % (37-47); Hemoglobin 14.5 g/dL (12.0-15.0); Lymphocyte # 0.92 X10^3/ul (0.83-4.51); Lymphocyte % 10.7 % (19-41); Mean Corp Hgb Conc 33.6 g/dL (32-36); Mean Corpuscular Hgb 29.8 pg (27.0-32.0); Mean Corpuscular Volume 88.5 fL (81-99); Mean Platelet Vol. 10.3 fl (6.2-12.0); Monocyte# 0.18 X10^3/uL; Monocyte% 2.1 % (0-10); NRBC Flagged by Analyzer 0 % (0-5); Neutrophil # 7.42 X10^3/uL (2.7-7.7); Neutrophil % 86.4 % (47-70); Platelet Count 257 K/mm3 (150-450); RBC Distribution Width CV 13.3 % (11.6-14.6); RBC Distribution Width SD 43.3 fl (35.1-43.9); Red Blood Count 4.87 M/mm3 (4.2-5.4); White Blood Count 8.6 K/mm3 (4.4-11.0)
--- NOTE | 2023-07-08 12:18 | EDS_ITS ---
HPI History of Present Illness Chief Complaint: Back Informant: patient Narrative Narrative: Patient is a 78-year-old female presenting with worsening/intractable low back pain. She is pain is in her lower back and radiates down her left leg. Is worse with movement. She was seen in the ER and actually had an MRI done 3 days ago. She was discharged home with a prescription for gabapentin and Percocet. She is also been on a course of prednisone and muscle relaxant with no relief. She is unable to achieve pain control is having hard time walking because of pain. She has pain is worse when she tries to sit on the toilet. Denies any associated numbness or does feel that she has weakness in her leg. Denies any bowel or bladder incontinence. Denies any saddle anesthesia. No trauma reported but states this was triggered from her overdoing it in the garden. Patient states that she was told in the ER that likely she will need back surgery and is not sure what she supposed to do since her pain is so bad. [facility] Medical History Lumbar radiculopathy Lumbar strain Sciatic pain Lesion of urinary bladder Obstruction of left ureteropelvic junction (UPJ) due to stone Wears glasses Depression Anxiety Diabetes High cholesterol Restless legs Back pain Dietary restriction Non-smoker Hx of malignant carcinoid tumor History of stress test History of echocardiogram Home Medications ?Medication ?Instructions ?Recorded ?Last Taken ?Type aspirin 81 mg tablet,delayed 81 mg PO DAILY heart 01/19/21 07/07/23 History release atorvastatin 20 mg tablet 20 mg PO QHS cholesterol 01/19/21 07/07/23 History calcium 500 mg tablet 500 mg PO DAILY supplement 01/19/21 07/08/23 History empagliflozin 25 mg tablet 25 mg PO DAILY diabetes 01/19/21 07/08/23 History (Jardiance) escitalopram oxalate 10 mg tablet 10 mg PO DAILY mood 01/19/21 07/08/23 History (Lexapro) metformin 500 mg tablet 500 mg PO Q6H diabetes 01/19/21 07/08/23 History prednisone 10 mg tablet 10 mg PO DAILY #30 tabs 07/04/23 07/08/23 Rx gabapentin 300 mg capsule 300 mg PO TID 30 days #90 caps 07/07/23 07/07/23 Rx oxycodone-acetaminophen 5 mg-325 1 tab PO Q6H PRN pain 5 days #20 07/07/23 07/08/23 06:30 Rx mg tablet (Percocet) tabs clobetasol 0.05 % topical cream 1 applic topical PRN PRN psoriasis 07/08/23 07/07/23 History Allergy/AdvReac Type Severity Reaction Status Date / Time cefdinir (From [facility]) Allergy Swelling/FACIAL Verified 07/06/23 18:20 AND HIVES Surgical History Hx of cystoscopy Hx of parathyroidectomy Hx of colonoscopy History of cystoscopy History of laparotomy Hx of arthroscopic knee surgery Hx of shoulder surgery Hx of hysterectomy, total Social History Smoking Status: Never smoker ROS ROS ED Constitutional Constitutional ED: Denies chills or fever(s) Respiratory/Chest Respiratory/Chest: Denies dyspnea Gastrointestinal Gastrointestinal: Denies abdominal pain, constipation or diarrhea Genitourinary Genitourinary ED: Denies dysuria or urinary frequency Musculoskeletal Musculoskeletal: Reports back pain; Denies myalgias Integumentary Denies Abrasions or rash Neurologic Neurologic: Reports paresthesias and weakness; Denies headache(s) Hematologic/Lymphatic Hematologic/Lymphatic: Denies easy bleeding or easy bruising EXAM Physical Exam Const Vital Signs: 07/08/23 09:17 07/08/23 13:17 07/08/23 13:21 Temperature 97.0 F L 98 F Temperature Source Temporal Pulse Rate 73 16 L 68 Respiratory Rate 16 18 Blood Pressure 160/67 H 142/87 H 142/87 H Blood Pressure Mean 98 105 105 Pulse Ox 100 99 Oxygen Delivery Method Room Air Positive well nourished and well developed General Appearance ED: well developed HEENT Reports dry mucous membranes Mouth ED: Yes dry mucous membranes Mouth: dry mucous membranes Neck supple Resp normal respiratory effort Cardio regular rate and regular rhythm Cardio Narrative: 2+ DP pulses GI normal to inspection, nondistended, normoactive bowel sounds Back/Spine normal to inspection Back/Spine Narrative: No midline spinal tenderness. Patient has subjective paresthesias increased pain of the left anterior/lateral thigh as well as the left medial lower leg. 5/5 strength with plantar dorsiflexion. 5/5 strength with flexion of the great toe. Decreased strength (4/5) with hip flexion however this is limited by pain as well. Thoracic Spine / Upper Back: Negative for paraspinal muscle tenderness Lumbar Spine / Lower Back: ROM limited, straight leg raise positive right at 80 degrees and straight leg raise positive - left at 30 degrees Extremity normal to inspection General Extremety ED: Negative for edema or tenderness General Extremity: Negative for edema Neuro oriented x3 Neuro Narrative: see extemity exam Sensorium / Orientation: alert Psych mental status grossly normal Skin no rashes or lesions noted and no wounds MDM MDM MDM Narrative Medical decision making narrative: Patient is evaluated for intractable back pain and difficulty ambulating secondary to this. MRI from 3 days ago was reviewed which shows disc disease at L3/4 and L4/5. Patient is given a dose of IV Dilaudid for pain control. She has symptom improvement. She has required redosed. Did check some basic labs and her white blood cell count and hemoglobin is normal. Her BMP is largely normal except for her bicarb which is low at 19. Patient states that she is not been drinking as much water as it is hard for her to get to go to the bathroom and she has not been feeling well with her pain. Patient is given IV fluids in the emergency room as she likely signs of dehydration. Patient does not feel comfortable going home given the degree of her pain. Will be admitted to the medicine service for further pain control. Patient is interested in PT/OT evaluation and consult with spine surgery. I did speak with Dr. Willett, spine surgeon on-call, and reviewed the MRI results. He will see the patient tomorrow. Patient is given dose of Decadron in the emergency room. Hospitalist will monitor the patient's glucose as she does have history of diabetes which is generally well-controlled. Patient and spouse agreeable with plan of care. Lab Data Attestation: I reviewed the patient's lab results. Labs: Laboratory Results - last 24 hr 07/08/23 11:42 WBC 8.6 RBC 4.87 Hgb 14.5 Hct 43.1 MCV 88.5 MCH 29.8 MCHC 33.6 RDW Std Deviation 43.3 RDW Coeff of Lisa 13.3 Plt Count 257 MPV 10.3 Immature Gran % (Auto) 0.300 Neut % (Auto) 86.4 H Lymph % (Auto) 10.7 L [place] % (Auto) 2.1 Eos % (Auto) 0.3 Baso % (Auto) 0.2 Absolute Neuts (auto) 7.4 Absolute Lymphs (auto) 0.92 Nucleated RBC % 0 Sodium 135 L Potassium 3.7 Chloride 103 Carbon Dioxide 19.0 L Anion Gap 13 BUN 21 H Creatinine 0.53 L Est GFR (MDRD) Af Amer 145 Est GFR (MDRD) Non-Af 120 BUN/Creatinine Ratio 39.8 H Glucose 221 H Calcium 9.4 Management Discussion w/another healthcare provider: Hospitalist and Supervisor [employer] Discharge Plan Triage Chief Complaint: Back ED Provider: Digna Donahue Dx/Rx/DC Orders Clinical Impression: Lumbar radiculopathy, Intractable low back pain, Dehydration Primary Care Provider: Brooks Frank Disposition Disposition: Acute Care [facility]
[2023-07-08] MEDS: 0.9% Normal Saline (1000mL) 1,000 ML 999 ML IV (12:57)
[2023-07-08] MEDS: HYDROmorphone 0.5 MG/0.5 ML SYRINGE IV (12:57)
[2023-07-08 13:17] VITALS: BP 142/87; PULSE 16
[2023-07-08] MEDS: dexAMETHasone 10 MG/ML Vial IV (13:19)
[2023-07-08 13:21] VITALS: BP 142/87; PULSE 68; RESP 18; TEMP 36.6; O2SAT 99
[2023-07-08 14:14] VITALS: BMI 22.5
[2023-07-08] MEDS: DULoxetine Hcl 30 MG Capsule PO (14:58)
[2023-07-08 15:20] LABS: Bedside Glucose 131 mg/dL (74-106)
--- NOTE | 2023-07-08 15:25 | PCM.HP.STD ---
HPI - General General Date of Admission: 07/08/23 Date of Service: 07/08/23 Chief Complaint: Left buttocks and left upper leg pain HPI Narrative LAUREN OLIVERA, is a 78 F who presents to the emergency room at [facility] for evaluation of increasing pain in her left buttocks area and left upper leg. She had been seen in the emergency room on 07/06/2023, at that time she stated her discomfort started on 07/03/2023 with pain in her left upper buttock and lower back. Patient stated she had done work in the yard earlier that day. Patient then complained of increased pain the next day radiating down into her left upper leg. Patient went to the [facility] and was placed on prednisone and Skelaxin, x-rays done at the [facility] according to the patient showed some degenerative disc disease. Patient had also been taking some gabapentin without relief. Workup in the emergency room on 07/06/2023 included a lumbar spine MRI which showed grade 1 anterior lateral thesis of L4 and L5, unroofed disc material and right base concentric disc protrusion is present at that level and there was mild canal stenosis, there is also left lateral disc protrusion at L3-4 contacting the emerging left L3 nerve root lateral to the left neuroforamen with potential nerve root impingement. Patient was given Dilaudid and gabapentin and she was released to go home. Today the patient states that she still has significant pain in her left buttocks area radiating down into her left upper leg. Patient denies any pain in her left lower leg, she denies any pain at all in her right leg and right buttocks area. Labs were obtained which showed a normal white blood cell count, chemistry panel showed an elevated glucose at 221, BUN was slightly elevated at 21. The emergency room physician contacted orthopedic surgery and they agreed to see the patient in consultation if she was admitted to the hospital. Patient will be admitted to [facility], I will place her on IV Decadron, she will be seen by PT and OT, I also contacted pain management to discuss the possibility of the patient receiving an epidural injection. This will not be accomplished until Sunday due to the holiday weekend. Patient will receive IV narcotics for pain, I will keep her on gabapentin-I have decided to reduce the dose due to sleepiness with medication, and I have placed her on Cymbalta and stopped her Lexapro. PENDING SALE TO [facility] Medical History (Updated 07/07/23 @ 02:[address] Deion Garcia, DO) Lumbar radiculopathy Lumbar strain Sciatic pain Lesion of urinary bladder Obstruction of left ureteropelvic junction (UPJ) due to stone Wears glasses Depression Anxiety Diabetes High cholesterol Restless legs Back pain Dietary restriction Non-smoker Hx of malignant carcinoid tumor History of stress test History of echocardiogram Home Medications ?Medication ?Instructions ?Recorded ?Last Taken ?Type aspirin 81 mg tablet,delayed 81 mg PO DAILY heart 01/19/21 07/07/23 History release atorvastatin 20 mg tablet 20 mg PO QHS cholesterol 01/19/21 07/07/23 History calcium 500 mg tablet 500 mg PO DAILY supplement 01/19/21 07/08/23 History empagliflozin 25 mg tablet 25 mg PO DAILY diabetes 01/19/21 07/08/23 History (Jardiance) escitalopram oxalate 10 mg tablet 10 mg PO DAILY mood 01/19/21 07/08/23 History (Lexapro) metformin 500 mg tablet 500 mg PO Q6H diabetes 01/19/21 07/08/23 History prednisone 10 mg tablet 10 mg PO DAILY #30 tabs 07/04/23 07/08/23 Rx gabapentin 300 mg capsule 300 mg PO TID 30 days #90 caps 07/07/23 07/07/23 Rx oxycodone-acetaminophen 5 mg-325 1 tab PO Q6H PRN pain 5 days #20 07/07/23 07/08/23 06:30 Rx mg tablet (Percocet) tabs clobetasol 0.05 % topical cream 1 applic topical PRN PRN psoriasis 07/08/23 07/07/23 History Allergy/AdvReac Type Severity Reaction Status Date / Time cefdinir (From [employer]) Allergy Swelling/FACIAL Verified 07/06/23 18:20 AND HIVES Surgical History Hx of cystoscopy Hx of parathyroidectomy Hx of colonoscopy History of cystoscopy History of laparotomy Hx of arthroscopic knee surgery Hx of shoulder surgery Hx of hysterectomy, total Social History Smoking Status: Never smoker ROS Constitutional Constitutional: Denies anorexia, change in weight, chills, fatigue, fever(s), night sweats or weakness Eyes Eyes: Denies blurry vision, change in vision, discharge from eye(s) or eye pain Cardiovascular Cardiovascular: Denies chest pain, claudication, edema or palpitations Respiratory/Chest Respiratory/Chest: Denies cough, hemoptysis, shortness of breath at rest or shortness of breath with exertion Gastrointestinal Gastrointestinal: Denies abdominal pain, constipation, diarrhea, hematemesis, hematochezia, melena, nausea or vomiting Genitourinary Genitourinary: Denies dysuria, hematuria, urinary frequency, urinary hesitancy, urinary incontinence or urinary urgency Musculoskeletal Musculoskeletal: Denies back pain, joint pain, joint stiffness, joint swelling, myalgias or neck pain Neurologic Neurologic: Reports other Details: Patient complains of pain in the left buttocks area radiating into the left thigh area down toward the knee ; Denies abnormal gait, abnormal speech, dizziness, focal weakness, headache(s), loss of vision, numbness, other visual disturbances, paresthesias, syncope or tingling Psychiatric Psychiatric: Denies anxiety, cognitive impairment, depression, irritability, mood swings or suicidal ideation Endocrine Endocrinology: Denies change in body appearance, cold intolerance, excessive sweating, heat intolerance, polydipsia or polyuria Hematologic/Lymphatic Hematologic/Lymphatic: Denies none, anemia, easy bleeding, easy bruising or lymphadenopathy Allergic/Immunologic Allergic/Immunologic: Denies rhinitis, urticaria, eczemia or asthma Vital Signs Vital Signs Vital Signs: 07/08/23 09:17 07/08/23 13:17 07/08/23 13:21 Temperature 97.0 F L 98 F Temperature Source Temporal Pulse Rate 73 16 L 68 Respiratory Rate 16 18 Blood Pressure 160/67 H 142/87 H 142/87 H Blood Pressure Mean 98 105 105 Pulse Ox 100 99 Oxygen Delivery Method Room Air Weight Weight: 59.511 kg Body Mass Index (BMI) 22.5 Physical Exam Const alert, oriented x3, no apparent distress, average body habitus and healthy appearing General Appearance: cooperative, well kempt and well developed Orientation / Consciousness: awake, oriented to person, oriented to place and oriented to time HEENT normocephalic, head/scalp atraumatic, hearing grossly normal bilaterally and moist oral mucous membranes Eyes PERRL, EOMs intact bilaterally and conjunctivae normal Neck supple, no JVD, thyroid normal and no carotid bruits General: trachea midline Resp normal respiratory effort, no retractions, no use of accessory muscles and clear to auscultation bilaterally Auscultation: Negative for rales, rhonchi or wheezes Cardio regular rate, regular rhythm, S1 normal heart sound, S2 normal heart sound, no murmurs, no rub and no gallops GI normal to inspection, nondistended, normoactive bowel sounds, soft to palpation, non-tender and non-distended Extremity no clubbing, cyanosis or edema Skin no rashes or lesions noted General Skin Exam: no breakdown Neuro oriented x3, CN's II-XII intact bilaterally, no focal motor deficits and no sensory deficits noted Sensorium / Orientation: awake and alert Speech: speech normal Psych affect normal Results Lab / Micro Data 07/08/23 11:42 07/08/23 11:42 Labs: Laboratory Results - last 24 hr 07/08/23 11:42: WBC 8.6, RBC 4.87, Hgb 14.5, Hct 43.1, MCV 88.5, MCH 29.8, MCHC 33.6, RDW Std Deviation 43.3, RDW Coeff of Lisa 13.3, Plt Count 257, MPV 10.3, Immature Gran % (Auto) 0.300, Neut % (Auto) 86.4 H, Lymph % (Auto) 10.7 L, [place] % (Auto) 2.1, Eos % (Auto) 0.3, Baso % (Auto) 0.2, Absolute Neuts (auto) 7.4, Absolute Lymphs (auto) 0.92, Nucleated RBC % 0, Sodium 135 L, Potassium 3.7, Chloride 103, Carbon Dioxide 19.0 L, Anion Gap 13, BUN 21 H, Creatinine 0.53 L, Est GFR (MDRD) Af Amer 145, Est GFR (MDRD) Non-Af 120, BUN/Creatinine Ratio 39.8 H, Glucose 221 H, Calcium 9.4 07/08/23 14:54: POC Glucose 131 H Assessment & Plan Assessment/Plan (1) Lumbar herniated disc: PLAN: Plan 1. Degenerative disc disease of the lumbar spine with resultant left buttocks and leg radicular pain-patient was admitted to [facility], she will receive IV corticosteroids and IV analgesics, I placed her on Neurontin, she will be placed on Cymbalta and be seen by orthopedic surgery and pain management. #2 type 2 diabetes-patient's blood sugars will be monitored, sliding scale insulin will be used as needed to control blood sugars #3 hyperlipidemia-patient is on atorvastatin #4 chronic depression-again patient's Lexapro was stopped and she will be transition to Cymbalta to with her radicular pain. Total clinical time spent by myself addressing the patient's medical issues, reviewing all of her data, and collaborating with patient's care team: 75 minutes Charges/Coding Visit Charges Inpatient E&M: 45619 Init Hosp L3
[2023-07-08 16:01] VITALS: BP 153/72; PULSE 94; RESP 16; TEMP 36.8; O2SAT 97
[2023-07-08] MEDS: Gabapentin 100 MG Capsule 200 MG PO (16:04)
[2023-07-08] MEDS: dexAMETHasone 4 MG/ML Vial IV (16:49)
[2023-07-08] MEDS: 0.9% Saline Lock 10 ML Syringe IV (16:49)
[2023-07-08 19:40] VITALS: BP 150/82; PULSE 93; RESP 16; TEMP 37.1; O2SAT 96
[2023-07-08] MEDS: oxyCODONE 5 MG Tablet 10 MG PO (19:47)
[2023-07-08] MEDS: Insulin Lispro 100 UNIT/ML INSULN.PEN SC (21:39)
[2023-07-08] MEDS: Heparin Injection (Vial) 5,000 UNIT/ML VIAL 5000 UNIT SC (21:40)
[2023-07-08] MEDS: Atorvastatin Calcium 20 MG Tablet PO (21:40)
[2023-07-08 22:04] LABS: Bedside Glucose 157 mg/dL (74-106)
[2023-07-09] MEDS: dexAMETHasone 4 MG/ML Vial IV ×5 (01:38→23:40)
[2023-07-09] MEDS: oxyCODONE 5 MG Tablet 10 MG PO ×2 (01:45→20:04)
[2023-07-09 01:46] VITALS: BP 153/84; PULSE 72; RESP 16; TEMP 36.6; O2SAT 97
[2023-07-09 07:14] LABS: Bedside Glucose 133 mg/dL (74-106)
--- NOTE | 2023-07-09 10:10 | PCM.PN.HOSP ---
Reason for Visit Reason for Visit: Diagnoses Other intervertebral disc displacement, lumbar region (07/08/23) Subjective Subjective Patient was seen and examined today, she states her left leg pain is improved. I talked briefly with pain management today and let them know that there was a consultation for them tomorrow. Objective Data Objective Data Vital Signs: Vital Signs Temp Pulse Resp BP Pulse Ox O2 Del Method 97.8 F 72 16 153/84 H 97 Room Air 07/09/23 01:46 07/09/23 01:46 07/09/23 01:46 07/09/23 01:46 07/09/23 01:46 07/09/23 01:46 Oxygen Delivery Method Room Air Weight: 59.511 kg Body Mass Index (BMI) 22.5 Intake & Output: Intake and Output for Last 24 Hours 07/07/23 07/08/23 07/09/23 23:59 23:59 23:59 Intake Total 1410 / 1710 400 / 400 Balance 1410 / 1710 400 / 400 Lab / Micro Data 07/08/23 11:42 07/08/23 11:42 Labs: Laboratory Results - last 24 hr 07/08/23 11:42: WBC 8.6, RBC 4.87, Hgb 14.5, Hct 43.1, MCV 88.5, MCH 29.8, MCHC 33.6, RDW Std Deviation 43.3, RDW Coeff of Lisa 13.3, Plt Count 257, MPV 10.3, Immature Gran % (Auto) 0.300, Neut % (Auto) 86.4 H, Lymph % (Auto) 10.7 L, [place] % (Auto) 2.1, Eos % (Auto) 0.3, Baso % (Auto) 0.2, Absolute Neuts (auto) 7.4, Absolute Lymphs (auto) 0.92, Nucleated RBC % 0, Sodium 135 L, Potassium 3.7, Chloride 103, Carbon Dioxide 19.0 L, Anion Gap 13, BUN 21 H, Creatinine 0.53 L, Est GFR (MDRD) Af Amer 145, Est GFR (MDRD) Non-Af 120, BUN/Creatinine Ratio 39.8 H, Glucose 221 H, Calcium 9.4 07/08/23 14:54: POC Glucose 131 H 07/08/23 21:36: POC Glucose 157 H 07/09/23 06:55: POC Glucose 133 H Physical Exam Narrative alert, oriented x3, no apparent distress, average body habitus and healthy appearing General Appearance: cooperative, well kempt and well developed Orientation / Consciousness: awake, oriented to person, oriented to place and oriented to time HEENT normocephalic, head/scalp atraumatic, hearing grossly normal bilaterally and moist oral mucous membranes Eyes PERRL, EOMs intact bilaterally and conjunctivae normal Neck supple, no JVD, thyroid normal and no carotid bruits General: trachea midline Resp normal respiratory effort, no retractions, no use of accessory muscles and clear to auscultation bilaterally Auscultation: Negative for rales, rhonchi or wheezes Cardio regular rate, regular rhythm, S1 normal heart sound, S2 normal heart sound, no murmurs, no rub and no gallops GI normal to inspection, nondistended, normoactive bowel sounds, soft to palpation, non-tender and non-distended Extremity no clubbing, cyanosis or edema Skin no rashes or lesions noted General Skin Exam: no breakdown Neuro oriented x3, CN's II-XII intact bilaterally, no focal motor deficits and no sensory deficits noted Sensorium / Orientation: awake and alert Speech: speech normal Psych affect normal Assessment & Plan Assessment/Plan (1) Lumbar herniated disc: PLAN: Plan 1. Degenerative disc disease of the lumbar spine with resultant left buttocks and leg radicular pain-continue gabapentin, Cymbalta, and IV Decadron. Patient is also receiving IV or p.o. narcotics as needed #2 type 2 diabetes-patient's blood sugars will be monitored, sliding scale insulin will be used as needed to control blood sugars #3 hyperlipidemia-patient is on atorvastatin #4 chronic depression-again patient's Lexapro was stopped and she will be transitioned to Cymbalta to help with her radicular pain Total clinical time spent by myself addressing the patient's medical issues, reviewing all of her data, and collaborating with patient's care team: 35 minutes Charges/Coding Visit Charges Inpatient E&M: 43806 Subs Hosp L2
[2023-07-09 10:21] VITALS: BP 138/71; PULSE 76; RESP 18; TEMP 36.6; O2SAT 97
[2023-07-09] MEDS: DULoxetine Hcl 30 MG Capsule PO (10:31)
[2023-07-09] MEDS: Heparin Injection (Vial) 5,000 UNIT/ML VIAL 5000 UNIT SC ×2 (10:31→21:29)
[2023-07-09] MEDS: Empagliflozin 25 MG Tablet PO (10:32)
[2023-07-09] MEDS: Gabapentin 100 MG Capsule 200 MG PO ×3 (10:35→17:09)
[2023-07-09 12:08] LABS: Bedside Glucose 175 mg/dL (74-106)
[2023-07-09] MEDS: Insulin Lispro 100 UNIT/ML INSULN.PEN SC ×2 (12:14→21:29)
[2023-07-09] MEDS: Lactulose 20 GM/30 ML UDC 30 GM PO (12:21)
[2023-07-09 15:01] VITALS: BP 141/68; PULSE 83; RESP 18; TEMP 36.9; O2SAT 96
[2023-07-09] MEDS: 0.9% Saline Lock 10 ML Syringe IV ×2 (17:11→23:40)
[2023-07-09 20:03] VITALS: BP 143/71; PULSE 75; RESP 18; TEMP 36.6; O2SAT 95
[2023-07-09] MEDS: Atorvastatin Calcium 20 MG Tablet PO (21:30)
[2023-07-09 21:49] LABS: Bedside Glucose 185 mg/dL (74-106)
[2023-07-10] VITALS (9 sets, daily range): BP systolic 126–157; BP diastolic 67–82; PULSE 70–82; RESP 16; TEMP 36.4–36.8; O2SAT 96–99
[2023-07-10] MEDS: oxyCODONE 5 MG Tablet 10 MG PO ×2 (02:10→20:18)
[2023-07-10] MEDS: dexAMETHasone 4 MG/ML Vial IV ×3 (06:10→17:01)
[2023-07-10] MEDS: 0.9% Saline Lock 10 ML Syringe IV ×2 (06:10→11:20)
[2023-07-10 11:35] LABS: Bedside Glucose 151 mg/dL (74-106)
[2023-07-10 11:35] LABS: Bedside Glucose 136 mg/dL (74-106)
--- NOTE | 2023-07-10 11:37 | PCM.CONS.GEN ---
Assessment & Plan Assessment/Plan (1) Intractable low back pain: (2) Lumbar herniated disc: (3) Lumbar radiculopathy: PLAN: Plan Acute debilitating low back pain with left sided lower extremity radiculopathy. Pain is worsening and impacting daily life funciton, such as sitting and walking. She is admitted for intractible back pain that is not responsive to oral and IV steroids and muscle relaxants. MRI demonstrates left sided L3-4 and L4-L5 neuroforaminal stenosis due to degenerative changes and disc herniations. Since her symptoms are in both the distributions of L3 and L4, I will plan for Left L3-L4 and L4-L5 TFESI. Discussed with Dr. Oro about KELLY as next treatment modality. Surgical decompression is to be considered depending upon response. No evidence of cauda equina at this time: no bowel/bladder incontinence, saddle paresthesia. Some weakness in left hip flexion, but able to ambulate short distance albeit with significant pain. Using walker for support in hospital. Has been NPO midnight for sedation. A1C is 6 range, so ok for steroid. Lovenox dvt prophy dose held this morning. Follow up 1 week in outpatient office to assess response. HPI Consult Data Date of Consult: 07/10/23 HPI Narrative HPI Narrative: LAUREN OLIVERA, is a 78 F who presents with intractible back pain with radiculopathy. The pain is dull in the back and sharp down the left lower extremity. It has been worsening and now extends to the level of the foot. It started about 1 week ago after taking a walk. No clear inciting event other than this. It has been persistent and debilitating. She has difficulty walking. Sitting also produces significant pain. She was given muscle relaxant and steroids with little benefit, so she went to ED and was ultimately admitted for the pain. MRI obtained showing significant dik protrusion at L3-L4 and L4-L5 causing left sided neuroforaminal stenosis. [facility] Medical History Lumbar radiculopathy Lumbar strain Sciatic pain Lesion of urinary bladder Obstruction of left ureteropelvic junction (UPJ) due to stone Wears glasses Depression Anxiety Diabetes High cholesterol Restless legs Back pain Dietary restriction Non-smoker Hx of malignant carcinoid tumor History of stress test History of echocardiogram Home Medications ?Medication ?Instructions ?Recorded ?Last Taken ?Type aspirin 81 mg tablet,delayed 81 mg PO DAILY heart 01/19/21 07/07/23 History release atorvastatin 20 mg tablet 20 mg PO QHS cholesterol 01/19/21 07/07/23 History calcium 500 mg tablet 500 mg PO DAILY supplement 01/19/21 07/08/23 History empagliflozin 25 mg tablet 25 mg PO DAILY diabetes 01/19/21 07/08/23 History (Jardiance) escitalopram oxalate 10 mg tablet 10 mg PO DAILY mood 01/19/21 07/08/23 History (Lexapro) metformin 500 mg tablet 500 mg PO Q6H diabetes 01/19/21 07/08/23 History prednisone 10 mg tablet 10 mg PO DAILY #30 tabs 07/04/23 07/08/23 Rx gabapentin 300 mg capsule 300 mg PO TID 30 days #90 caps 07/07/23 07/07/23 Rx oxycodone-acetaminophen 5 mg-325 1 tab PO Q6H PRN pain 5 days #20 07/07/23 07/08/23 06:30 Rx mg tablet (Percocet) tabs clobetasol 0.05 % topical cream 1 applic topical PRN PRN psoriasis 07/08/23 07/07/23 History Allergy/AdvReac Type Severity Reaction Status Date / Time cefdinir (From [employer]) Allergy Swelling/FACIAL Verified 07/06/23 18:20 AND HIVES Surgical History Hx of cystoscopy Hx of parathyroidectomy Hx of colonoscopy History of cystoscopy History of laparotomy Hx of arthroscopic knee surgery Hx of shoulder surgery Hx of hysterectomy, total Social History Smoking Status: Never smoker ROS Constitutional Constitutional: Denies anorexia, change in weight, chills, fatigue, fever(s), night sweats or weakness Eyes Eyes: Denies blurry vision or change in vision Cardiovascular Cardiovascular: Denies chest pain, claudication, edema or palpitations Respiratory/Chest Respiratory/Chest: Denies cough, shortness of breath at rest or shortness of breath with exertion Gastrointestinal Gastrointestinal: Denies abdominal pain, constipation, nausea or vomiting Genitourinary Genitourinary: Denies urinary frequency or urinary incontinence Musculoskeletal Musculoskeletal: Reports back pain; Denies joint swelling or myalgias Neurologic Neurologic: Reports other Details: Patient complains of pain in the left buttocks area radiating into the left thigh area down toward the knee ; Denies abnormal gait, dizziness, focal weakness, numbness, paresthesias, syncope or tingling Psychiatric Psychiatric: Denies anxiety, cognitive impairment or depression Hematologic/Lymphatic Hematologic/Lymphatic: Denies none, anemia, easy bleeding, easy bruising or lymphadenopathy Physical Exam Narrative alert, oriented x3, no apparent distress, average body habitus and healthy appearing General Appearance: cooperative, well kempt and well developed Orientation / Consciousness: awake, oriented to person, oriented to place and oriented to time HEENT normocephalic, head/scalp atraumatic, hearing grossly normal bilaterally and moist oral mucous membranes Eyes EOMs intact bilaterally and conjunctivae normal Resp normal respiratory effort, Back: Paraspinal tenderness bilaterally. No SI tenderness. SLR + left. Facet load + for pain. Extremity no clubbing, cyanosis or edema Skin no rashes or lesions noted General Skin Exam: no breakdown Neuro oriented x3, no sensory deficits noted. 4/5 strength with left hip flexion. Otherwise 5/5 throughout the lower extremities. Left Patellar reflex diminished. Otherwise normal physiologic DTRs in the lower extremities. Sensorium / Orientation: awake and alert Speech: speech normal Psych affect normal Lab / Micro Data 07/08/23 11:42 07/08/23 11:42 Labs: Laboratory Results - last 24 hr 07/09/23 11:50: POC Glucose 175 H 07/09/23 21:28: POC Glucose 185 H 07/10/23 06:09: POC Glucose 136 H 07/10/23 11:15: POC Glucose 151 H
--- NOTE | 2023-07-10 12:30 | CASEMGMT ---
RN CM note RN CM to room to complete assessment. Pt out of room @ procedure at this time. Carter LIMN RN CM
[2023-07-10] MEDS: Lactated Ringers 1,000 ML 15 ML IV (12:44)
--- NOTE | 2023-07-10 13:41 | PCM.CONS.B ---
Consult Date of Consult: 07/10/23 I was asked to see Kathy Dorantes in consultation. She was admitted 2 nights ago through the emergency room. I actually saw her yesterday but the dictation was not done because the computer system was down and I was unable to actually dictate the consult. Thus I am dictating the consult today. Last Sunday, a week ago, she had the insidious onset of severe pain in her left buttocks that went to the anterior left thigh. She never had that ever before. She has no history of back problems. She works diligently in her yard and has for years without back problems. The onset was sudden. She denies any bowel or bladder dysfunction. She denies history of unexplained weight loss night fever sweats or chills. Upon admission the pain was a 10/10 in severity. It is somewhat improved now that she has been on IV steroids for couple of days. In the previous ER visit right after it started she was given a Medrol Dosepak which did not even touch the pain. On examination it is noted that she has some early wasting of the left quadriceps mechanism as compared to the right. Her left patellar reflex is completely absent and her right is 2+. I can overcome the quadriceps on the left and I cannot on the right. The weakness is not dramatic but it is there. I would call it a 4+/5. She also has 4+/5 weakness of the left EHL and the left anterior tibial as compared to the right. She has no long tract signs. Clonus is absent and Babinski's are downgoing. I reviewed her MRI scan that demonstrates that she has a far lateral herniation at L3-4 on the left side consistent with her apparent L3 symptomatology. She may also have L4 symptomatology however. Complete absence of the reflex she is usually more L4 than anything 1 has to wonder about not just L3 but also L4. Even though the radiologist did not call it I do see what appears to be another lateral herniation at 4 5 far laterally which would affect the L4 nerve root. I have already gone over the case with my associate Dr. Oro. He went to see the patient today. Dr. Harrington is doing a selective nerve root injection of L3. We will see what type of results he gets. In the end however I explained to him that that she will probably need surgical intervention. This is the end of consult on Kathy Dorantes.
--- NOTE | 2023-07-10 14:50 | RAD_ITS ---
STUDY: X-RAY - LUMBAR SPINE REASON FOR EXAM: Female, 78 years old. Intraprocedural documentation images. TECHNIQUE: 3 intraprocedural digital documentation view(s) of the lumbar spine were obtained. COMPARISON: None FINDINGS: 3 intraprocedural digital documentation views of transforaminal nerve block shows contrast adjacent to the right side of the L5 vertebral body just above the L5-S1 interspace. Total time of exposure was 63.5 seconds with a radiation dose of 13.76 mGy. RAD/Spine 1 View Any Level IMPRESSION: Intraprocedural digital documentation views as described. Electronically Signed: Donaldo Bermeo MD at 15:29 EDT ,
[2023-07-10] MEDS: Triamcinolone Acetonide 40 MG/ML Vial ×2 (14:58→14:59)
--- NOTE | 2023-07-10 15:09 | PCM.OPRPT ---
Report of Operation Date of Procedure: 07/10/23 Pre-Operative Diagnosis: Lumbar radiculopathy, intractable back pain Post-Operative Diagnosis: Lumbar Radiculopathy, intractable back pain Surgery/Procedure Performed:: Left L3-L4 and L4-L5 Transforaminal epidural steroid injections Surgeon: Abhi Harrington media/instructional designer: None Type of Anesthesia: MAC Specimen's removed: None Estimated Blood Loss (mL): Nil Description of Procedure: Informed consent was obtained, and the patient was directed to the procedure room. A ?time-out? with two active identifiers of the patient, the procedure, and the site was performed. The patient was positioned prone on the fluoroscopy table. All pressure points were padded and checked routinely. The patient?s blood pressure, heart rate, pulse oximetry, and level of consciousness were monitored throughout. The back was widely sterilized using Betadine solution and was draped in a sterile manner. Starting with the L4-L5 level, lidocaine was used to make a skin wheel directly over a point inferior and lateral to the inferior-lateral portion of the left transverse process. The subcutaneous tissue was then anesthetized, and a 22g spinal needle with a 30-degree bend at the tip was advanced in a target fashion using fluoroscopic guidance in the oblique and AP view. The needle was advanced until the tip made contact with the most infero-medial portion of the transverse process. The tip was then directed infero-medially, and the needle was advanced into foramen of the L4-L5 transforaminal space. Proper needle position was then confirmed by multiple fluoroscopic views. An aspiration test was negative for blood, CSF, and other fluids. Thereafter, 0.5 mL of contrast was slowly injected (without incident) under live fluoroscopy and imaging revealed medial spread of the dye along the nerve root, and into the epidural space. No vascular uptake was noted. 30mg of kenalog and 1ml of 1% lidocaine was was then slowly injected with ease and without incident. The needle was removed without complication. The same procedure was performed at the L3-L4 left on the left. 30mg of kenalog and 1ml of lidocaine 1% was injected at this level as well. The procedure was performed uneventfully and was well-tolerated by the patient. The patient was transferred to an observation room and recovered without incident. No adverse events were noted. All potential side effects and adverse events have been discussed with the patient. The patient has been instructed to contact me or my team call at the first sign of an adverse event, or with any other concerning symptoms. A follow-up appointment will be made in 1 week as an outpatient.. Complications None
--- NOTE | 2023-07-10 15:39 | PCM.PN.HOSP ---
Reason for Visit Reason for Visit: Diagnoses Other intervertebral disc displacement, lumbar region (07/08/23) Radiculopathy, lumbar region (07/08/23) Other low back pain (07/08/23) Subjective Subjective Patient was seen and examined today, she underwent transforaminal epidural injections on the left at L3-L4 and L4-L5. Objective Data Objective Data Vital Signs: Vital Signs Temp Pulse Resp BP Pulse Ox O2 Del Method 97.6 F L 73 16 130/68 H 97 Room Air 07/10/23 15:17 07/10/23 15:30 07/10/23 15:30 07/10/23 15:30 07/10/23 15:30 07/10/23 15:30 Oxygen Delivery Method Room Air Weight: 59.511 kg Body Mass Index (BMI) 22.5 Intake & Output: Intake and Output for Last 24 Hours 07/08/23 07/09/23 07/10/23 23:59 23:59 23:59 Intake Total 1410 / 1710 800 / 1100 300 / 300 Balance 1410 / 1710 800 / 1100 300 / 300 Lab / Micro Data 07/08/23 11:42 07/08/23 11:42 Labs: Laboratory Results - last 24 hr 07/09/23 21:28: POC Glucose 185 H 07/10/23 06:09: POC Glucose 136 H 07/10/23 11:15: POC Glucose 151 H Physical Exam Narrative alert, oriented x3, no apparent distress, average body habitus and healthy appearing General Appearance: cooperative, well kempt and well developed Orientation / Consciousness: awake, oriented to person, oriented to place and oriented to time HEENT normocephalic, head/scalp atraumatic, hearing grossly normal bilaterally and moist oral mucous membranes Eyes PERRL, EOMs intact bilaterally and conjunctivae normal Neck supple, no JVD, thyroid normal and no carotid bruits General: trachea midline Resp normal respiratory effort, no retractions, no use of accessory muscles and clear to auscultation bilaterally Auscultation: Negative for rales, rhonchi or wheezes Cardio regular rate, regular rhythm, S1 normal heart sound, S2 normal heart sound, no murmurs, no rub and no gallops GI normal to inspection, nondistended, normoactive bowel sounds, soft to palpation, non-tender and non-distended Extremity no clubbing, cyanosis or edema Skin no rashes or lesions noted General Skin Exam: no breakdown Neuro oriented x3, CN's II-XII intact bilaterally, no focal motor deficits and no sensory deficits noted Sensorium / Orientation: awake and alert Speech: speech normal Psych affect normal Assessment & Plan Assessment/Plan (1) Lumbar herniated disc: PLAN: Plan 1. Degenerative disc disease of the lumbar spine with resultant left buttocks and leg radicular pain-continue gabapentin, Cymbalta, and IV Decadron. Patient is also receiving IV or p.o. narcotics as needed, again she underwent epidural lumbar injections today. If these do not provide appreciable relief, she may have to undergo lumbar surgery in the near future. #2 type 2 diabetes-patient's blood sugars will be monitored, sliding scale insulin will be used as needed to control blood sugars #3 hyperlipidemia-patient is on atorvastatin #4 chronic depression-again patient's Lexapro was stopped and she will be transitioned to Cymbalta to help with her radicular pain Total clinical time spent by myself addressing the patient's medical issues, reviewing all of her data, and collaborating with patient's care team: 35 minutes Charges/Coding Visit Charges Inpatient E&M: 48131 Subs Hosp L2
--- NOTE | 2023-07-10 15:52 | CHAPLAIN ---
Type of Pastoral Visit ___ Initial Visit ___ Follow-up Visit ___ On-call Visit ___ General Patient Visit ___ Spiritual Assessment ___ Family Conference ___ Bereavement ___ Rapid Response ___ Code Blue ___ Other (describe below) Pastoral Care Referral From ___ Patient ___ Family ___ Nurse ___ Physician ___ Show Host/Hostess ___ Wardrobe Specialty Worker ___ Other (describe below) Sacrament/Intervention ___ Active listening ___ Anointing ___ Jain ___ Bereavement ___ Communion ___ Norma exploration ___ ___ Life review ___ Prayer ___ Reconciliation ___ Sacrament of Sick ___ Supportive presence ___ Wedding ___ Other (describe below) Pastoral Comments patient and bed were not in the room and so a calling card was left
--- NOTE | 2023-07-10 15:57 | CON.PCM.OR_ITS ---
HPI Consult Data Date of Consult: 07/10/23 HPI Narrative HPI Narrative: LAUREN OLIVERA, is a 78 F who presents with low back pain and left anterior thigh radiation. She was admitted over the weekend and orthopedics was consulted yesterday. Dr. Willett saw the patient yesterday and reached out to me for evaluation for possible surgery. I saw the patient in 309 at noon today. She was being prepared to be taken down to the OR for epidural injection by Dr. Harrington. I reviewed her history. She has had on and off low back pain for a while. This limits her with her walking distance. She has been doing a lot of yard work lately. She does not remember any acute episode last week but symptoms severely aggravated last Sunday she started having low back pain radiating to the left anterior thigh going up to the knee. She had multiple episodes where she went to the urgent care followed by ER and then got admitted. She has had oral and IV steroids for this. Her pain is somewhat gotten better but mobility is still limited. She is diabetic with last A1c in the sixes. She has not had any recent epidural injections. [facility] Medical History Lumbar radiculopathy Lumbar strain Sciatic pain Lesion of urinary bladder Obstruction of left ureteropelvic junction (UPJ) due to stone Wears glasses Depression Anxiety Diabetes High cholesterol Restless legs Back pain Dietary restriction Non-smoker Hx of malignant carcinoid tumor History of stress test History of echocardiogram Home Medications ?Medication ?Instructions ?Recorded ?Last Taken ?Type aspirin 81 mg tablet,delayed 81 mg PO DAILY heart 01/19/21 07/07/23 History release atorvastatin 20 mg tablet 20 mg PO QHS cholesterol 01/19/21 07/07/23 History calcium 500 mg tablet 500 mg PO DAILY supplement 01/19/21 07/08/23 History empagliflozin 25 mg tablet 25 mg PO DAILY diabetes 01/19/21 07/08/23 History (Jardiance) escitalopram oxalate 10 mg tablet 10 mg PO DAILY mood 01/19/21 07/08/23 History (Lexapro) metformin 500 mg tablet 500 mg PO Q6H diabetes 01/19/21 07/08/23 History prednisone 10 mg tablet 10 mg PO DAILY #30 tabs 07/04/23 07/08/23 Rx gabapentin 300 mg capsule 300 mg PO TID 30 days #90 caps 07/07/23 07/07/23 Rx oxycodone-acetaminophen 5 mg-325 1 tab PO Q6H PRN pain 5 days #20 07/07/23 07/08/23 06:30 Rx mg tablet (Percocet) tabs clobetasol 0.05 % topical cream 1 applic topical PRN PRN psoriasis 07/08/23 07/07/23 History Allergy/AdvReac Type Severity Reaction Status Date / Time cefdinir (From [employer]) Allergy Swelling/FACIAL Verified 07/06/23 18:20 AND HIVES Surgical History Hx of cystoscopy Hx of parathyroidectomy Hx of colonoscopy History of cystoscopy History of laparotomy Hx of arthroscopic knee surgery Hx of shoulder surgery Hx of hysterectomy, total Social History Smoking Status: Never smoker Vital Signs Vital Signs Vital Signs: 07/09/23 20:03 07/09/23 21:22 07/10/23 02:10 Temperature 97.8 F 98 F Temperature Source Temporal Temporal Pulse Rate 75 82 Respiratory Rate 18 16 Respiratory Effort Normal Non-Labored Respiratory Depth Normal Respiratory Pattern Normal Blood Pressure 143/71 H 157/82 H Blood Pressure Mean 95 107 Blood Pressure Source Monitor Monitor Blood Pressure Position Semi-Fowlers Semi-Fowlers Blood Pressure Location Right Arm Right Arm Baseline BP Pulse Ox 95 97 Oxygen Delivery Method Room Air Room Air Room Air 07/10/23 08:45 07/10/23 15:17 07/10/23 15:20 Temperature 98.0 F 97.6 F L Temperature Source Temporal Temporal Pulse Rate 71 77 76 Respiratory Rate 16 16 16 Respiratory Effort Respiratory Depth Respiratory Pattern Normal Blood Pressure 138/75 H 126/71 H 126/69 H Blood Pressure Mean 96 89 88 Blood Pressure Source Monitor Monitor Monitor Blood Pressure Position Semi-Fowlers Supine Supine Blood Pressure Location Right Arm Right Arm Right Arm Baseline BP 138/75 138/75 Pulse Ox 98 97 97 Oxygen Delivery Method Room Air Room Air Room Air 07/10/23 15:25 07/10/23 15:30 07/10/23 15:35 Temperature 97.8 F Temperature Source Temporal Pulse Rate 73 73 73 Respiratory Rate 16 16 16 Respiratory Effort Respiratory Depth Respiratory Pattern Blood Pressure 126/69 H 130/68 H 127/68 H Blood Pressure Mean 88 88 87 Blood Pressure Source Monitor Monitor Monitor Blood Pressure Position Supine Supine Semi-Fowlers Blood Pressure Location Left Arm Left Arm Right Arm Baseline BP 138/75 138/75 138/75 Pulse Ox 98 97 96 Oxygen Delivery Method Room Air Room Air Room Air Weight Weight: 131 lb 3.2 oz Body Mass Index (BMI) 22.5 Physical Exam Narrative Examination the back shows midline and left paraspinal tenderness. Neurologic evaluation of lower extremity shows 5 x 5 power in all muscle except for grade 4+ EHL tib ant and quadriceps on the left. Passive straight leg raise test is positive on the left. Const alert and oriented x3 Lab / Micro Data 07/08/23 11:42 07/08/23 11:42 Labs: Laboratory Results - last 24 hr 07/09/23 21:28: POC Glucose 185 H 07/10/23 06:09: POC Glucose 136 H 07/10/23 11:15: POC Glucose 151 H Assessment & Plan Assessment/Plan (1) Lumbar radiculopathy: (2) Spondylolisthesis, lumbar region: (3) Spinal stenosis of lumbar region with neurogenic claudication: (4) Lumbar scoliosis: QUALIFIERS: Scoliosis type: other secondary scoliosis Qualified Code(s): M41.56 - Other secondary scoliosis, lumbar region PLAN: Plan I went over her x-rays and MRI. She has degenerative lumbar scoliosis. She also has L4-5 grade 1 spondylolisthesis. MRI shows L4-5 bilateral lateral recess and foraminal stenosis, and L3-4 left extraforaminal disc extrusion. I explained the imaging findings in detail. I went over treatment options with the patient. I gave her options of continued nonsurgical treatment versus surgery. I explained to her that the chronic L4-5 stenosis is the source of her longstanding low back pain and difficulty walking distances, while her 1 week history of severe left anterior thigh pain is likely from the acute disc extrusion in the L3-4 extraforaminal left space. For her chronic L4-5 stenosis, she may continue with nonsurgical treatment until she reaches a stage where her symptoms are affecting her quality of life or her walking distance is reduced, at which time we may consider surgery which may include a fusion. For acute L3- 4 left foraminal disc herniation, she is scheduled to undergo epidural injection by Dr. Harrington later today. Depending on the results of these injections, we may consider surgical extraforaminal discectomy if her symptoms do not improve or are affecting her quality of life. Patient was in agreement and will follow- up with us in a week to see how her injection helped. Patient was in agreement. Charges/Coding Visit Charges Inpatient E&M: 01221 Init Hosp L3
[2023-07-10] MEDS: Gabapentin 100 MG Capsule 200 MG PO (17:01)
[2023-07-10] MEDS: Empagliflozin 25 MG Tablet PO (17:02)
[2023-07-10] MEDS: DULoxetine Hcl 30 MG Capsule PO (17:02)
[2023-07-10 17:14] LABS: Bedside Glucose 144 mg/dL (74-106)
[2023-07-10] MEDS: Atorvastatin Calcium 20 MG Tablet PO (20:18)
[2023-07-10 23:06] LABS: Bedside Glucose 142 mg/dL (74-106)
[2023-07-11] MEDS: dexAMETHasone 4 MG/ML Vial IV ×3 (00:33→11:27)
[2023-07-11] MEDS: 0.9% Saline Lock 10 ML Syringe IV ×3 (00:34→11:28)
[2023-07-11 04:00] VITALS: BP 144/83; PULSE 75; RESP 16; TEMP 36.6; O2SAT 97
[2023-07-11] MEDS: Insulin Lispro 100 UNIT/ML INSULN.PEN SC (06:27)
[2023-07-11 06:47] LABS: Bedside Glucose 160 mg/dL (74-106)
--- NOTE | 2023-07-11 08:53 | DCINST_ITS ---
Discharge Instructions Diet Discharge Diet: 1800 Calorie Control Diet Activity Discharge Activity: Return to Normal Activity Weight Bearing Status: Full weight bearing Follow Up Care Test Results: Test results from this visit will be discussed in further detail at your follow- up appointment, if applicable. Discharge Plan Admission Admit Date/Time: 07/08/23 13:31 Primary Reason for Your Visit: ruptured lumbar disc, lumbar disc disease Attending Provider: Kenton Stockton Primary Care Provider: Brooks Frank Consulting Providers: Antonio Willett; Abhi Harrington Discharge Orders/Prescriptions Prescriptions: New oxycodone 5 mg Tablet 10 - 15 mg PO Q6H PRN PRN (Reason: Pain Score 1-10) 7 Days Qty: 50 0RF duloxetine 30 mg Capsule,Delayed Release(Dr/Ec) 30 mg PO DAILY Qty: 60 0RF Rx Instructions: one daily for 5 days, then increase to two once a day thereafter prednisone 20 mg tablet 40 mg PO DAILY Qty: 10 0RF Rx Instructions: two daily for three days, then one daily for 4 days, then stop Continued metformin 500 mg Tablet 500 mg PO Q6H atorvastatin 20 mg Tablet 20 mg PO QHS calcium 500 mg Tablet 500 mg PO DAILY aspirin 81 mg Tablet,Delayed Release (Dr/Ec) 81 mg PO DAILY Jardiance 25 mg Tablet 25 mg PO DAILY clobetasol 0.05 % cream 1 applic topical PRN PRN (Reason: psoriasis) oxycodone-acetaminophen [Percocet] 5-325 mg tablet 1 tab PO Q6H PRN (Reason: pain) 5 Days Qty: 20 0RF gabapentin 300 mg capsule 300 mg PO TID 30 Days Qty: 90 0RF Discontinued prednisone 10 mg tablet 10 mg PO DAILY Qty: 30 0RF Rx Instructions: 4 tablets daily x3 days, then 3 tablets daily x3 days, then 2 tablets daily x3 days, then 1 tablet daily x3 days escitalopram oxalate [Lexapro] 10 mg Tablet 10 mg PO DAILY Referrals / Follow Up: Alton Oro MD [Med Staff - Active Staff] - See Referral Note (call office for follow up appointment) Brooks Frank MD [Primary Care Provider] - Abhi Harrington MD [Med Staff - Active Staff] - In 1 Week Disposition Disposition (needs filled in before D/C Order can be placed): Home, Self Care
--- NOTE | 2023-07-11 08:54 | CASEMGMT ---
VELVET MOLINA Assessment: Face to Face with pt for initial transition planning/care coordination assessment. VELVET MOLINA introduced self and role at [facility], pt voices understanding and consents to assessment. Pt is A&O x4 and answers all questions appropriately at this time. Pt sitting up in bed in no distress. Care providers, pharmacy, and demographics verified/updated. Admitting Dx: intractable left sided radicular pain PCP:Monika Specialists:Denies Preferred Pharmacy:[facility] Insurance: [facility], [place] Supp Prescription Benefit: yes LNOK: Brooks Dorantes, Living Arrangements: Pt lives with in a single story home with 3 steps to enter with a rail. Pt reports she was I in ADL's and denies concerns at home. Transportation: Pt drives self and denies concerns with transportation. DME:grab bars in the shower, CHC, FWW, shower chair, BGM with sufficient strips and lancets HHC/SNF: Denies hx of Pt states no concerns with going home at time of dc. Pt states she will follow up with and ortho after dc. Pt states no further concerns/needs. CM to follow. Advised pt to ask CM if any further question/concerns/needs arise, voices understanding. Pt Goal: Home Plan: Home Veronica VERDIN CM
--- NOTE | 2023-07-11 09:04 | PCM.DC.SUM ---
Providers Date of Admission: 07/08/23 Date of Discharge: 07/11/23 Primary Care Physician: Dr. Brooks Frank MD Consultations 07/08/23 14:11 Consult: Orthopedics Routine Consulting Provider: Antonio Willett Reason for Consult: left radicular pain EMERGENT Consult: No Notified: Yes Date Notified: 07/08/23 Time Notified: 13:36 Method of Notification: Verbal 07/09/23 09:46 Consult: Pain Management Routine Consulting Provider: Abhi Harrington Reason for Consult: left radicular pain, need for epidural EMERGENT Consult: No Notified: Yes Date Notified: 07/09/23 Time Notified: 09:48 Method of Notification: Verbal Reason For Visit: INTRACTABLE LEFT SIDED RADICULAR PAIN Diagnosis Discharge Diagnosis (1) Lumbar radiculopathy: Status: Acute Code(s): M54.16 - Radiculopathy, lumbar region (2) Spondylolisthesis, lumbar region: Status: Acute Code(s): M43.16 - Spondylolisthesis, lumbar region (3) Spinal stenosis of lumbar region with neurogenic claudication: Status: Acute Code(s): M48.062 - Spinal stenosis, lumbar region with neurogenic claudication (4) Lumbar scoliosis: Status: Acute Code(s): M41.9 - Scoliosis, unspecified Qualifiers: Scoliosis type: other secondary scoliosis Qualified Code(s): M41.56 - Other secondary scoliosis, lumbar region Plan 1. Degenerative disc disease of the lumbar spine with resultant left buttocks and leg radicular pain-continue gabapentin, Cymbalta, and IV Decadron. Patient is also receiving IV or p.o. narcotics as needed, again she underwent epidural lumbar injections today. If these do not provide appreciable relief, she may have to undergo lumbar surgery in the near future. #2 type 2 diabetes-patient's blood sugars will be monitored, sliding scale insulin will be used as needed to control blood sugars #3 hyperlipidemia-patient is on atorvastatin #4 chronic depression-again patient's Lexapro was stopped and she will be transitioned to Cymbalta to help with her radicular pain Total clinical time spent by myself addressing the patient's medical issues, reviewing all of her data, and collaborating with patient's care team: 35 minutes Medications at Discharge Home Medications aspirin 81 mg tablet,delayed release 81 mg PO DAILY heart 01/19/21 atorvastatin 20 mg tablet 20 mg PO QHS cholesterol 01/19/21 calcium 500 mg tablet 500 mg PO DAILY supplement 01/19/21 empagliflozin 25 mg tablet (Jardiance) 25 mg PO DAILY diabetes 01/19/21 metformin 500 mg tablet 500 mg PO Q6H diabetes 01/19/21 gabapentin 300 mg capsule 300 mg PO TID 30 days #90 caps 07/07/23 oxycodone-acetaminophen 5 mg-325 mg tablet (Percocet) 1 tab PO Q6H PRN pain 5 days #20 tabs 07/07/23 clobetasol 0.05 % topical cream 1 applic topical PRN PRN psoriasis 07/08/23 duloxetine 30 mg capsule,delayed release 30 mg PO DAILY #60 caps 07/11/23 oxycodone 5 mg tablet 10 - 15 mg (2 - 3 x 5 mg) PO Q6H PRN PRN Pain Score 1-10 7 days #50 tabs 07/11/23 prednisone 20 mg tablet 40 mg (2 x 20 mg) PO DAILY #10 tabs 07/11/23 Hospital Course Operations None Procedures - (Transforaminal left epidural lumbar spine injections) Summary of Care Provided Minutes Spent on Discharge: 32 Hospital Course: This 78-year-old white female was seen in the emergency room at [facility] with complaints of left upper leg pain along with pain in her left buttocks area. She had been seen recently in the emergency room, an MRI was obtained which showed a ruptured disc in the lumbar spine along with degenerative joint disease. Patient states that the medication she was given to take at home for her leg discomfort did not help and she came to the emergency room for evaluation. Imaging studies were not repeated, patient was given IV pain medication and was admitted to [place] [id number], she was placed on IV corticosteroids, her Neurontin was continued, and she was placed on Cymbalta. She was seen in consultation by orthopedic spine surgery and pain management, patient underwent a left transforaminal epidural steroid injection at L3-L4 and L4-L5 by pain management. Patient had some relief from the discomfort during her hospitalization, spine surgery felt that the patient ultimately would need an outpatient lumbar spinal surgery. On 07/11/2023, patient was seen and examined: On examination she appeared in good health and spirits, she does not appear to be in any distress. Vital signs as documented. Skin warm and dry and without overt rashes. Neck without JVD, thyroid appears normal, trachea is midline, neck is supple. Lungs clear, normal air movement was noted. Heart exam notable for regular rhythm, normal sounds and absence of murmurs, rubs or gallops. Abdomen unremarkable and without evidence of organomegaly, masses, or abdominal aortic enlargement, bowel sounds are present in all 4 quadrants, no abdominal tenderness was noted. Extremities nonedematous, no cyanosis was noted, no clubbing was noted. Neuro: Cranial nerves II through XII are grossly intact, no focal motor deficits were noted, sensation to light touch and pinprick is intact, motor exam 5/5 throughout. Psych: Patient is alert and oriented x3, she does not appear anxious or depressed, she does not appear agitated. Patient appeared stable for discharge home on 07/11/2023. Weight / BMI Weight Weight: 59.511 kg Body Mass Index (BMI) 22.5 ABG / Lab / Microbiology Data 07/08/23 11:42 07/08/23 11:42 Laboratory: Laboratory Results - last 24 hr 07/10/23 06:09: POC Glucose 136 H 07/10/23 11:15: POC Glucose 151 H 07/10/23 16:56: POC Glucose 144 H 07/10/23 20:16: POC Glucose 142 H 07/11/23 06:25: POC Glucose 160 H D/C Instructions Discharge Diet: 1800 Calorie Control Diet Weight Bearing Status: Full weight bearing Meaningful Use Info Meaningful Use Meaningful Use Diagnoses (Choose all that apply): None applicable Ischemic Stroke Statin Dosing Therapy Reference: STATIN DOSE THERAPY REFERENCE: * Patients > 75 years receive moderate or high dose statin therapy. * Patients 75 years or YOUNGER should receive HIGH intensity statin dose unless contraindicated. You will be required to document reason for non-treatment if statin daily dose does not meet guidelines. HIGH DOSE STATIN THERAPY DAILY Atorvastatin > than or = to 40 mg Rosuvastatin > than or = to 20 mg Amlodipine + Atorvastatin > than or = to 2.5/40 mg Ezetimibe + Simvastatin 10/80 mg Simvastatin 80mg Discharge Plan Admission Admit Date/Time: 07/08/23 13:31 Primary Reason for Your Visit: ruptured lumbar disc, lumbar disc disease Attending Provider: Kenton Stockton Primary Care Provider: Brooks Frank Consulting Providers: Antonio Willett; Abhi Harrington Discharge Orders/Prescriptions Prescriptions: New oxycodone 5 mg Tablet 10 - 15 mg PO Q6H PRN PRN (Reason: Pain Score 1-10) 7 Days Qty: 50 0RF duloxetine 30 mg Capsule,Delayed Release(Dr/Ec) 30 mg PO DAILY Qty: 60 0RF Rx Instructions: one daily for 5 days, then increase to two once a day thereafter prednisone 20 mg tablet 40 mg PO DAILY Qty: 10 0RF Rx Instructions: two daily for three days, then one daily for 4 days, then stop Continued metformin 500 mg Tablet 500 mg PO Q6H atorvastatin 20 mg Tablet 20 mg PO QHS calcium 500 mg Tablet 500 mg PO DAILY aspirin 81 mg Tablet,Delayed Release (Dr/Ec) 81 mg PO DAILY Jardiance 25 mg Tablet 25 mg PO DAILY clobetasol 0.05 % cream 1 applic topical PRN PRN (Reason: psoriasis) oxycodone-acetaminophen [Percocet] 5-325 mg tablet 1 tab PO Q6H PRN (Reason: pain) 5 Days Qty: 20 0RF gabapentin 300 mg capsule 300 mg PO TID 30 Days Qty: 90 0RF Discontinued prednisone 10 mg tablet 10 mg PO DAILY Qty: 30 0RF Rx Instructions: 4 tablets daily x3 days, then 3 tablets daily x3 days, then 2 tablets daily x3 days, then 1 tablet daily x3 days escitalopram oxalate [Lexapro] 10 mg Tablet 10 mg PO DAILY Referrals / Follow Up: Alton Oro MD [Med Staff - Active Staff] - See Referral Note (call office for follow up appointment) Brooks Frank MD [Primary Care Provider] - Abhi Harrington MD [Med Staff - Active Staff] - 07/18/23 10:30 am Disposition Disposition (needs filled in before D/C Order can be placed): Home, Self Care Charges/Coding Visit Charges Inpatient E&M: 02169 Disch Hosp >30min
[2023-07-11 09:36] VITALS: BP 134/72; PULSE 75; RESP 18; TEMP 36.2; O2SAT 96
[2023-07-11] MEDS: Gabapentin 100 MG Capsule 200 MG PO ×2 (09:48→11:26)
[2023-07-11] MEDS: DULoxetine Hcl 30 MG Capsule PO (09:48)
--- NOTE | 2023-07-11 10:12 | PHA.DC_ITS ---
Pharmacy [facility] has performed discharge medication reconciliation and counseling for this patient. Patient still has Percocet that was filled a few days ago. Counseled patient not to take this in addition to new oxycodone prescription. Instructed patient to take one or the other. 1. DULOXETINE 30MG PO DAILY X 5 DAYS, THEN 60MG PO DAILY THEREAFTER 2. STOP PREVIOUS PREDNISONE TAPER, START 40MG PO DAILY X 3 DAYS, THEN 20MG FOR 4 DAYS 3. OXYCODONE 10-15MG PO Q6H PRN PAIN 4. STOP LEXAPRO The patient's discharge medication list was reviewed for discrepancies and discrepancies were resolved. The patient was counseled on the following discharge medications and changes in medications for homegoing were reviewed. The Reason for Use, instructions for use, and potential side effects were reviewed for all new medications. The patient's questions regarding all of their medications were answered. The patient was able to verbally demonstrate an understanding of their discharge medications. Medications at Discharge Home Medications aspirin 81 mg tablet,delayed release 81 mg PO DAILY heart 01/19/21 atorvastatin 20 mg tablet 20 mg PO QHS cholesterol 01/19/21 calcium 500 mg tablet 500 mg PO DAILY supplement 01/19/21 empagliflozin 25 mg tablet (Jardiance) 25 mg PO DAILY diabetes 01/19/21 metformin 500 mg tablet 500 mg PO Q6H diabetes 01/19/21 gabapentin 300 mg capsule 300 mg PO TID 30 days #90 caps 07/07/23 oxycodone-acetaminophen 5 mg-325 mg tablet (Percocet) 1 tab PO Q6H PRN pain 5 days #20 tabs 07/07/23 clobetasol 0.05 % topical cream 1 applic topical PRN PRN psoriasis 07/08/23 duloxetine 30 mg capsule,delayed release 30 mg PO DAILY #60 caps 07/11/23 oxycodone 5 mg tablet 10 - 15 mg (2 - 3 x 5 mg) PO Q6H PRN PRN Pain Score 1-10 7 days #50 tabs 07/11/23 prednisone 20 mg tablet 40 mg (2 x 20 mg) PO DAILY #10 tabs 07/11/23
[2023-07-11] MEDS: Empagliflozin 25 MG Tablet PO (11:27)
--- NOTE | 2023-07-11 15:46 | CHAPLAIN ---
Type of Pastoral Visit _x__ Initial Visit ___ Follow-up Visit ___ On-call Visit ___ General Patient Visit ___ Spiritual Assessment ___ Family Conference ___ Bereavement ___ Rapid Response ___ Code Blue ___ Other (describe below) Pastoral Care Referral From _x__ Patient ___ Family ___ Nurse ___ Physician ___ Surgical Oncologist ___ Peach Grower ___ Other (describe below) Sacrament/Intervention _x__ Active listening ___ Anointing ___ Congregation ___ Bereavement ___ Communion ___ Norma exploration ___ ___ Life review ___ Prayer ___ Reconciliation ___ Sacrament of Sick ___ Supportive presence ___ Wedding ___ Other (describe below) Pastoral Comments met with patient and spouse as she was getting ready for discharge; pt reports on her physical pain, treatment given, and her hopes of having more care home relief; pt is offered additional support and presence but time is limited and she is ready to depart the hospital; pt reports on good care and no needs at this time
== END 2023-07-11 13:56 | disposition home or self-care (01) | DRG 552 ==
LOC: ED 13:12 → MS3 14:32
PROVIDERS: Anesthesiology; Admitting Provider Internal Medicine; Emergency Provider Emergency Medicine; PCP Family Medicine; Visit Provider Internal Medicine
PROC: 3E0S3BZ Introduction of Anesthetic Agent into Epidural Space, Percutaneous Approach (ICD-10-PCS; CPT 62322; principal; 2023-07-10 13:25)
DX: M51.16 Intervertebral disc disorders with radiculopathy, lumbar region (principal); M41.56 Other secondary scoliosis, lumbar region; E11.65 Type 2 diabetes mellitus with hyperglycemia; F32.A Depression, unspecified; E86.0 Dehydration; E78.00 Pure hypercholesterolemia, unspecified; M48.062 Spinal stenosis, lumbar region with neurogenic claudication; M43.16 Spondylolisthesis, lumbar region; M19.90 Unspecified osteoarthritis, unspecified site; Z79.891 Long term (current) use of opiate analgesic; Z79.82 Long term (current) use of aspirin; Z79.84 Long term (current) use of oral hypoglycemic drugs; Z79.899 Other long term (current) drug therapy
CPT/HCPCS: 72020; 72148; 76000; 80048; 82962; 85025; 97162; 97166; 99283; A4216; J2405

== ENCOUNTER 2023-07-16 02:15 | Observation (INO) | payer MEDICARE, OTHER, SELFPAY ==
[2023-07-16] VITALS (7 sets, daily range): BP systolic 141–184; BP diastolic 60–94; PULSE 78–95; RESP 14–24; TEMP 36.1–36.9; O2SAT 96–100; BMI 22.4; BMI 23.1
--- NOTE | 2023-07-16 02:37 | ED.VIS.BACK ---
HPI History of Present Illness Chief Complaint: Back Detail of Chief Complaint: Left lower back pain with L3 radiculopathy Informant: patient and spouse/S.O. Onset/Context/Timing Onset: Weeks (Symptoms have been greater than 1 week. Patient had MRI on July 05 which revealed Lateral disc bulge/protrusion at L3-4 contacting the emerging left L3 nerve root lateral to left neuroforamen with potential nerve root impingement.) Context: Sudden Onset Timing: Continuous Quality: Burning Location: Lumbar and Left Leg (L3 dermatome) Current Severity: Severe Maximum Severity: Severe Worsened by: improves with Nothing (Slightly worse with movement.) Relieved by: Nothing Associated Symptoms Associated Symptoms: Radiation to Left Leg; Negative for Numbness, Tingling, Fever, Abdominal Pain, Dysuria, Unable to Ambulate, Urinary Retention, Urinary Incontinence, Constipation or Fecal Incontinence Narrative Narrative: Patient is a 78-year-old woman. Patient was seen on May 05 by nurse practitioner and me. Her findings were consistent with an L3 nerve root impingement. She was discharged to home after Dr. Frank spoke with Dr. Willett. She returned the next day and was admitted for 4 days. Patient informed that Dr. Chavarria felt that she should have surgery. She was seen by Dr. Ramsay in the hospital. Epidural was placed with no improvement. Surgery has not occurred. Patient denies bowel bladder dysfunction. Patient does have radicular pain. Patient denies foot drop. Patient does not have steps to enter home or in her house. Unknown known if patient has quadricep weakness. She denies saddle paresthesia or anesthesia. Prior similar symptoms: Yes Recent Illness/Hospital[facility]: [facility] Medical History Lumbar scoliosis Dehydration Intractable low back pain Lumbar radiculopathy Lumbar strain Sciatic pain Lesion of urinary bladder Obstruction of left ureteropelvic junction (UPJ) due to stone Wears glasses Depression Anxiety Diabetes High cholesterol Restless legs Back pain Dietary restriction Non-smoker Hx of malignant carcinoid tumor History of stress test History of echocardiogram Home Medications ?Medication ?Instructions ?Recorded ?Last Taken ?Type atorvastatin 20 mg tablet 20 mg PO QHS cholesterol 01/19/21 07/07/23 History empagliflozin 25 mg tablet 25 mg PO DAILY diabetes 01/19/21 07/08/23 History (Jardiance) metformin 500 mg tablet 500 mg PO Q6H diabetes 01/19/21 07/08/23 History gabapentin 300 mg capsule 300 mg PO TID 30 days #90 caps 07/07/23 07/07/23 Rx duloxetine 30 mg capsule,delayed 30 mg PO DAILY #60 caps 07/11/23 Unknown Rx release oxycodone 5 mg tablet 10 - 15 mg (2 - 3 x 5 mg) PO Q6H 07/11/23 Unknown Rx PRN PRN Pain Score 1-10 7 days #50 tabs prednisone 20 mg tablet 40 mg (2 x 20 mg) PO DAILY #10 tabs 07/11/23 Unknown Rx Allergy/AdvReac Type Severity Reaction Status Date / Time cefdinir (From Omnicef) Allergy Swelling/FACIAL Verified 07/06/23 18:20 AND HIVES Surgical History Hx of cystoscopy Hx of parathyroidectomy Hx of colonoscopy History of cystoscopy History of laparotomy Hx of arthroscopic knee surgery Hx of shoulder surgery Hx of hysterectomy, total Social History (Updated 07/16/23 @ 02:[address] George Oliveros MD) household members: spouse Smoking Status: Never smoker ROS ROS ED Constitutional Constitutional ED: Denies chills, fever(s) or subjective Eyes Eyes: Denies change in vision Cardiovascular Cardiovascular: Denies chest pain or palpitations Respiratory/Chest Respiratory/Chest: Denies dyspnea or dyspnea on exertion Gastrointestinal Gastrointestinal: Denies abdominal pain, constipation, diarrhea, nausea or vomiting Musculoskeletal Musculoskeletal: Reports back pain Integumentary Denies rash Neurologic Neurologic: Denies paresthesias or weakness Hematologic/Lymphatic Hematologic/Lymphatic: Denies easy bleeding or easy bruising EXAM Physical Exam Const Vital Signs: 07/16/23 02:16 07/16/23 03:17 Temperature 97.4 F L 97.4 F L Temperature Source Temporal Pulse Rate 95 80 Respiratory Rate 24 H 16 Blood Pressure 184/94 H 171/80 H Blood Pressure Mean 124 110 Pulse Ox 100 100 Oxygen Delivery Method Room Air Positive well nourished and well developed Constitutional Narrative: Patient is in obvious discomfort. She is in more discomfort than when I saw her on July 05. Patient is presently on gabapentin 300 mg 3 times daily. She is also on oxycodone. She was on prednisone. General Appearance ED: well developed HEENT Reports moist mucous membranes HEENT Narrative: Head is atraumatic normocephalic. Ears normal. Nares patent. Eyes PERRL and EOMs intact bilaterally General Eye ED: Negative for pale conjunctiva or scleral icterus Neck no lymphadenopathy, supple and no JVD Resp normal respiratory effort and clear to auscultation bilaterally Cardio regular rate, regular rhythm, S1 normal heart sound, S2 normal heart sound and no murmurs GI normal to inspection, nondistended, normoactive bowel sounds, soft to palpation, non-tender and non-distended Back/Spine normal to inspection Back/Spine Narrative: Patient has diminished patellar reflex on the left. Patella and ankle are 2-3+ on the right and 2-3+ left ankle. EHLs intact. Distal pulses are palpable. 5 or 5 strength with plantar and dorsiflexion of the foot. Patient has altered sensation L3 dermatome. This time patient is not able to stand up to assess for quadricep weakness. Extremity normal to inspection and no clubbing, cyanosis or edema Neuro oriented x3 and No no sensory deficits noted Neuro Narrative: Unable to assess quadricep function. With her supine she has minimal effort and uncertain whether this is due to true weakness versus pain. Sensorium / Orientation: alert Psych Mood & Affect: tearful Skin no rashes or lesions noted and no wounds MDM MDM MDM Narrative Medical decision making narrative: Patient presents with worsening pain due to disc bulge/protrusion at L3-4 with contact left L3 nerve root lateral to the left neural foramen. There is other pathology noted on the MRI however the this would explain patient's symptoms and physical findings. Patient's renal function is normal. She was treated with IV Toradol, Dilaudid and 10 mg of Decadron. Patient was placed to Dr. Willett. Patient will need to be admitted for pain management and in all likelihood's surgery, microdiscectomy Since patient has type 2 diabetes and has been on prednisone and is receiving Decadron in the emergency department BMP was obtained to assess glucose and CO2 anion gap. Management Discussion w/another healthcare provider: Hospitalist (Admit to hospital service for medical restratification for microdiscectomy, Dr. Vargas recommended admission to Dr. Willett's service and she is having surgery and has minor medical problems.) and Sandblasting Supervisor (Spoke with Dr. Willett the spine surgeon. He would like patient n.p.o. He will see her at 0830. He will try to add her onto his surgical cases today. If unable to do today will operate on Sunday.) Discharge Plan Dx/Rx/DC Orders Clinical Impression: Failure of outpatient treatment, Lumbosacral radiculopathy at L3, Anterolisthesis of lumbar spine, Bulging of lumbar intervertebral disc without myelopathy, Type 2 diabetes mellitus, History of hypercholesterolemia Disposition Disposition: Acute Care [facility]
[2023-07-16] MEDS: Ketorolac 15 MG/ML Vial IV (02:39)
[2023-07-16] MEDS: HYDROmorphone 1 MG/ML Syringe 0.5 MG IV (02:39)
[2023-07-16] MEDS: dexAMETHasone 10 MG/ML Vial IV (02:39)
--- NOTE | 2023-07-16 03:24 | PCM.CONS.GEN ---
Assessment & Plan Assessment/Plan (1) Failure of outpatient treatment: (2) Bulging of lumbar intervertebral disc without myelopathy: PLAN: Plan The patient is a 78 y/o F w/ PMHx: HLD, Anxiety and Depression, Diabetes mellitus type II, persistent left lower back pain with L3 radiculopathy with symptoms ongoing for at least 1 week with recent MRI on 07/06/23 with lateral disc bulge/protrusion at L3-4 contacting the emerging left L3 nerve root lateral to the left neuroforamen with potential nerve root impingement with attempted epidural injection unfortunately only lasted approximately 24 hours prompting ED return on 07/16/23 with persistent lumbar and left lower extremity back pain, severe, worse with movement with no bowel or bladder dysfunction nor any paresthesias but given severity of pain and inability to tolerate it prompted reevaluation. #1. Intractable debilitating left lumbar back pain with radiculopathy: Failed conservative therapies and treatments, patient admitted per orthospine Dr. Willett for planned operative intervention 07/16/23 per discussion with ED physician, post-operative pain management, bowel regimen, DVT Prophylaxis, PT/OT/CM per Orthopedic surgery discretion. #2. Diabetes mellitus type II with chronic neuropathy: Hold oral home regimen, continue home insulin regimen, n.p.o. status given planned surgical intervention, accu checks w/ ISS which may need to be adjusted as well expect hyperglycemia with Decadron usage with administration in the ED per orthospine discretion. #3. Anxiety and depression: We will continue patient home duloxetine regimen. #4. Hyperlipidemia: We will continue patient on statin therapy. #5. DVT prophylaxis: SCDs, defer initiation of chemoprophylaxis to primary service given operative intervention intent. HPI Consult Data Date of Consult: 07/16/23 HPI Narrative Reason for Consultation: Intractable back pain HPI Narrative: The patient is a 78 y/o F w/ PMHx: HLD, Anxiety and Depression, Diabetes mellitus type II, persistent left lower back pain with L3 radiculopathy with symptoms ongoing for at least 1 week with recent MRI on 07/06/23 with lateral disc bulge/protrusion at L3-4 contacting the emerging left L3 nerve root lateral to the left neuroforamen with potential nerve root impingement with admission 07/08/2023 and consultation with both pain management and orthospine with 07/10/2023 left L3-L4 and L4-L5 transforaminal epidural steroid injection at that time within follow-up consultation by Dr. Oro with discussions for potential surgical extraforaminal discectomy with plan follow-up outpatient to now represents to the [facility] ED on 07/16/23 with persistent lumbar and left lower extremity back pain, severe, worse with movement with no bowel or bladder dysfunction nor any paresthesias but given severity of pain and inability to tolerate it prompted reevaluation. Patient rates pain 10 out of 10, severe. Workup in the ED included T97.4, heart rate 95, BP 184/94, respiratory 24, 100% on room air. In the ED patient administered decadron 10 mh IV x 1, dilaudid 0.5 mg IV x 1, toradol 15 mg IV x 1. Pending BMP upon requested consultation for patient. ED discussed case with orthospine who noted intention to perform surgical intervention and requested hospitalist consultation for medical management. [facility] Medical History Lumbar scoliosis Dehydration Intractable low back pain Lumbar radiculopathy Lumbar strain Sciatic pain Lesion of urinary bladder Obstruction of left ureteropelvic junction (UPJ) due to stone Wears glasses Depression Anxiety Diabetes High cholesterol Restless legs Back pain Dietary restriction Non-smoker Hx of malignant carcinoid tumor History of stress test History of echocardiogram Home Medications ?Medication ?Instructions ?Recorded ?Last Taken ?Type atorvastatin 20 mg tablet 20 mg PO QHS cholesterol 01/19/21 07/07/23 History empagliflozin 25 mg tablet 25 mg PO DAILY diabetes 01/19/21 07/08/23 History (Jardiance) metformin 500 mg tablet 500 mg PO Q6H diabetes 01/19/21 07/08/23 History gabapentin 300 mg capsule 300 mg PO TID 30 days #90 caps 07/07/23 07/07/23 Rx duloxetine 30 mg capsule,delayed 30 mg PO DAILY #60 caps 07/11/23 Unknown Rx release oxycodone 5 mg tablet 10 - 15 mg (2 - 3 x 5 mg) PO Q6H 07/11/23 Unknown Rx PRN PRN Pain Score 1-10 7 days #50 tabs prednisone 20 mg tablet 40 mg (2 x 20 mg) PO DAILY #10 tabs 07/11/23 Unknown Rx Allergy/AdvReac Type Severity Reaction Status Date / Time cefdinir (From Omnicef) Allergy Swelling/FACIAL Verified 07/06/23 18:20 AND HIVES Family History (Updated 07/16/23 @ 03:[address] Lisa Vargas MD) Mother Diabetes Father Heart disease Hypertension Surgical History Hx of cystoscopy Hx of parathyroidectomy Hx of colonoscopy History of cystoscopy History of laparotomy Hx of arthroscopic knee surgery Hx of shoulder surgery Hx of hysterectomy, total Social History (Updated 07/16/23 @ 03:[address] Lisa Vargas MD) household members: spouse Smoking Status: Never smoker alcohol intake: never substance use type: does not use ROS ROS Narrative Admission Review of Systems: CONSTITUTIONAL: No weight loss, fever, chills, + weakness or fatigue. HEENT: Eyes: No visual loss, blurred vision, double vision or yellow sclerae. Ears, Nose, Throat: No hearing loss, sneezing, congestion, runny nose or sore throat. SKIN: No rash or itching, lesions, wounds. CARDIOVASCULAR: No chest pain, chest pressure or chest discomfort, palpitations, edema, orthopnea, syncopal events. RESPIRATORY: No shortness of breath, cough or sputum, wheezing, hemoptysis. GASTROINTESTINAL: No anorexia, nausea, vomiting or diarrhea, abdominal pain, melena, BRBPR. GENITOURINARY: No dysuria, frequency, urgency or retention. NEUROLOGICAL: + Significant lumbar back pain as well as left lower extremity pain with radiculopathy, altered sensation. No headache, dizziness, syncope, change in bowel or bladder control, seizure. MUSCULOSKELETAL: + muscle, back pain, joint pain or stiffness. HEMATOLOGIC: No anemia, bleeding or bruising. LYMPHATICS: No enlarged nodes. No history of splenectomy. PSYCHIATRIC: + History of anxiety and depression. ENDOCRINOLOGIC: No reports of sweating, cold or heat intolerance. No polyuria or polydipsia. ALLERGIES: No history of asthma, hives, eczema or rhinitis. Physical Exam Narrative Physical Examination: General: Awake, alert, oriented x 3 and cooperative, seated upright in ED bed, uncomfortable appearing. Skin: Normal color, normal turgor, no icterus, no cyanosis. HEENT: AT/NC, EOMI, PERRLA, mildly dry MM, no carotid bruits or JVD noted. Lungs: Mild diminished, greater bases, appropriate effort, no rales, ronchi or wheezing. Heart: Regular rate and rhythm; no gallop, rub audible. Abdomen: Soft, NTTP, ND, mildly hyperactive BS, no appreciated HSM. Extremities: No cyanosis, no clubbing, no marked peripheral edema. Neurological: Patient awake, alert, oriented as noted, cognitive function intact; pupils equally reactive to light and accommodation, cranial nerves grossly normal, moving all 4 extremities except notably limited given significant discomfort especially left lower extremity with lumbar back pain, mildly altered L3 dermatome sensation, strength difficult assessment given pain however able to push and pull equally with foot. Psychiatric: Affect appears uncomfortable, no acute evidence of depressive or anxiety feelings but does have underlying history. Lab / Micro Data 07/16/23 02:55 Charges/Coding Visit Charges Office Visits / Consults: [id number] IP Consult L3
[2023-07-16 03:51] LABS: Anion Gap 16 (5-15); BUN 21 mg/dL (7-18); Calcium,Total 9.2 mg/dL (8.5-10.1); Chloride 100 mmol/L (98-107); Creatinine, Serum 0.57 mg/dL (0.55-1.02); EST Glomerular Filtration Rate 110 mL/min (>60); Est Glom Filt Rate - Afr Amer 133 mL/min (>60); Estimated Creatinine Clearance 51.66 ml/min; Glucose 219 mg/dL (74-106); Potassium 4.9 mmol/L (3.5-5.1); Sodium Level 133 mmol/L (136-145)
[2023-07-16] MEDS: oxyCODONE 5 MG Tablet 10 MG PO ×4 (04:34→20:48)
[2023-07-16] MEDS: Gabapentin 300 MG Capsule PO ×3 (04:34→20:48)
[2023-07-16] MEDS: Acetaminophen 325 MG Tablet 650 MG PO ×4 (04:36→20:48)
[2023-07-16] MEDS: 0.9% Normal Saline (1000mL) 1,000 ML 100 ML IV ×2 (04:37→14:38)
[2023-07-16] MEDS: Insulin Lispro 100 UNIT/ML INSULN.PEN SC ×2 (05:09→20:47)
[2023-07-16] MEDS: 0.9% Saline Lock 10 ML Syringe IV (05:11)
[2023-07-16 05:19] LABS: Bedside Glucose 167 mg/dL (74-106)
[2023-07-16 06:01] LABS: Absolute Lymphocyte Count 1.22 X10^3/uL (0.83-4.51); Absolute Neutrophil Count 13.9 X10^3/uL (2.0-7.7); Basophil# 0.02 X10^3/uL; Basophil% 0.1 % (0-1); Eosinophil# 0.03 X10^3/uL; Eosinophils% 0.2 % (0-5); Hematocrit 43.3 % (37-47); Hemoglobin 14.7 g/dL (12.0-15.0); Lymphocyte # 1.22 X10^3/ul (0.83-4.51); Lymphocyte % 7.7 % (19-41); Mean Corp Hgb Conc 33.9 g/dL (32-36); Mean Corpuscular Hgb 29.9 pg (27.0-32.0); Mean Platelet Vol. 10.1 fl (6.2-12.0); Monocyte# 0.45 X10^3/uL; Monocyte% 2.9 % (0-10); NRBC Flagged by Analyzer 0 % (0-5); Neutrophil # 13.92 X10^3/uL (2.7-7.7); Neutrophil % 88.4 % (47-70); Platelet Count 247 K/mm3 (150-450); RBC Distribution Width CV 13.1 % (11.6-14.6); RBC Distribution Width SD 42.2 fl (35.1-43.9); Red Blood Count 4.92 M/mm3 (4.2-5.4); White Blood Count 15.8 K/mm3 (4.4-11.0)
[2023-07-16 06:08] LABS: ALB/GLOB Ratio 1.2 RATIO (0.9-2.4); AST(SGOT) 8 U/L (15-37); Alanine Aminotransfer ALT/SGPT 20 U/L (13-56); Albumin, Serum 3.6 g/dL (3.2-5.0); Alkaline Phosphatase 62 U/L (45-117); Anion Gap 14 (5-15); BUN 22 mg/dL (7-18); BUN/Creat Ratio 41.7 RATIO (10-20); Calcium,Total 8.6 mg/dL (8.5-10.1); Chloride 101 mmol/L (98-107); Creatinine, Serum 0.53 mg/dL (0.55-1.02); EST Glomerular Filtration Rate 120 mL/min (>60); Est Glom Filt Rate - Afr Amer 145 mL/min (>60); Estimated Creatinine Clearance 51.66 ml/min; Glucose 178 mg/dL (74-106); Protein, Total 6.6 g/dL (6.4-8.2); Sodium Level 135 mmol/L (136-145)
[2023-07-16] MEDS: DULoxetine Hcl 30 MG Capsule PO (08:34)
[2023-07-16] MEDS: Famotidine 20 MG Tablet PO ×2 (08:34→20:47)
--- NOTE | 2023-07-16 09:10 | PCM.PN.HOSP ---
Reason for Visit Reason for Visit: Diagnoses Other intervertebral disc degeneration, lumbar region (07/16/23) Other specified health status (07/16/23) Subjective Subjective Patient is a 78-year-old lady who presented with persistent back pain. Recent MRI on 07/06/2023 demonstrated Lateral disc bulge/protrusion at L3-4 contacting the emerging left L3 nerve root lateral to the left neuroforamen with potential nerve root impingement. Patient had apparently been treated with epidural steroid injection which did not relieve her pain Objective Data Objective Data Vital Signs: Vital Signs Temp Pulse Resp BP Pulse Ox O2 Del Method 98.4 F 84 16 148/75 H 97 Room Air 07/16/23 08:29 07/16/23 08:29 07/16/23 08:29 07/16/23 08:29 07/16/23 08:29 07/16/23 08:29 Oxygen Delivery Method Room Air Weight: 61.2 kg Body Mass Index (BMI) 23.1 Intake & Output: Intake and Output for Last 24 Hours 07/14/23 07/15/23 07/16/23 23:59 23:59 23:59 Intake Total Balance Lab / Micro Data 07/16/23 05:25 07/16/23 05:25 Labs: Laboratory Results - last 24 hr 07/16/23 02:55: Sodium 133 L, Potassium 4.9, Chloride 100, Carbon Dioxide 17.0 L, Anion Gap 16 H, BUN 21 H, Creatinine 0.57, Estim Creat Clear Calc 51.66, Est GFR (MDRD) Af Amer 133, Est GFR (MDRD) Non-Af 110, BUN/Creatinine Ratio 37.0 H, Glucose 219 H, Calcium 9.2 07/16/23 04:59: POC Glucose 167 H 07/16/23 05:25: WBC 15.8 H, RBC 4.92, Hgb 14.7, Hct 43.3, MCV 88.0, MCH 29.9, MCHC 33.9, RDW Std Deviation 42.2, RDW Coeff of Lisa 13.1, Plt Count 247, MPV 10.1, Immature Gran % (Auto) 0.700, Neut % (Auto) 88.4 H, Lymph % (Auto) 7.7 L, Jefferson % (Auto) 2.9, Eos % (Auto) 0.2, Baso % (Auto) 0.1, Absolute Neuts (auto) 13.9 H, Absolute Lymphs (auto) 1.22, Nucleated RBC % 0, Sodium 135 L, Potassium 4.0, Chloride 101, Carbon Dioxide 20.0 L, Anion Gap 14, BUN 22 H, Creatinine 0.53 L, Estim Creat Clear Calc 51.66, Est GFR (MDRD) Af Amer 145, Est GFR (MDRD) Non-Af 120, BUN/Creatinine Ratio 41.7 H, Glucose 178 H, Calcium 8.6, Total Bilirubin 0.80, AST 8 L, ALT 20, Alkaline Phosphatase 62, Total Protein 6.6, Albumin 3.6, Globulin 3.0, Albumin/Globulin Ratio 1.2 Physical Exam Narrative GENERAL: cooperative HEENT: Atraumatic; normocephalic EYES; Anicteric, Normal Conjunctiva NECK; supple, normal thyroid, RESPIRATORY: Diminished to auscultation CARDIOVASCULAR: Regular S1 S2, GI: soft, normoactive bowel sounds, : No Renal angle tenderness; EXTREMITIES: No edema, no clubbing, MUSCULOSKELETAL: no muscle wasting NEURO: Awake; no lateralizing signs. SKIN: No Rash PSYCH; Flat affect Assessment & Plan Assessment/Plan (1) Failure of outpatient treatment: (2) Bulging of lumbar intervertebral disc without myelopathy: PLAN: Plan Patient is a 78-year-old lady who presented with persistent back pain. Recent MRI on 07/06/2023 demonstrated Lateral disc bulge/protrusion at L3-4 contacting the emerging left L3 nerve root lateral to the left neuroforamen with potential nerve root impingement. Patient had apparently been treated with epidural steroid injection which did not relieve her pain 1. Intractable back pain ?Recent MRI on 07/06/2023 demonstrated Lateral disc bulge/protrusion at L3-4 contacting the emerging left L3 nerve root lateral to the left neuroforamen with potential nerve root impingement. Patient had apparently been treated with epidural steroid injection which did not relieve her pain. Patient admitted by Dr. Montenegro for surgical intervention 2. 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 Home medications held please on Accu-Cheks before meals and at bedtime with sliding scale coverage 3. Diabetic polyneuropathy ? Patient is on gabapentin 4. Depression ? Patient is on duloxetine 5. DVT prophylaxis ? SCDs for now
--- NOTE | 2023-07-16 10:01 | CASEMGMT ---
Readmission Note: Index: 07/08/23-07/11/23. Dx: Intractable Lt sided Radicular Pain Readmission: 07/16/23. Dx: Back Pain Pt was recently admitted with Intractable Lt sided Radicular Pain and was given an epidural injection before DC to help control her pain. However, per the pt, this only lasted 24 hours and the pt could not tolerate the pain and came back into [facility] for reevaluation. Pt was prescribed oxycodone at DC and this was also not able to control her pain. Moving forward, the tentative plan is for the pt to receive surgery under Dr. Willett's care. Pt is from Home with her and is normally independent. The plan is for surgery and then have the pt work with PT/OT to configure a safe DC plan. CM to follow.
[2023-07-16 11:50] LABS: Bedside Glucose 145 mg/dL (74-106)
[2023-07-16 17:12] LABS: Bedside Glucose 129 mg/dL (74-106)
[2023-07-16] MEDS: Atorvastatin Calcium 20 MG Tablet PO (20:47)
[2023-07-16 22:11] LABS: Bedside Glucose 156 mg/dL (74-106)
[2023-07-17] VITALS (11 sets, daily range): BP systolic 118–170; BP diastolic 44–74; PULSE 69–74; RESP 14–18; TEMP 35.8–36.6; O2SAT 96–99; BMI 21.5
[2023-07-17 03:17] LABS: Bedside Glucose 126 mg/dL (74-106)
[2023-07-17] MEDS: Acetaminophen 325 MG Tablet 650 MG PO (04:42)
[2023-07-17] MEDS: oxyCODONE 5 MG Tablet 10 MG PO (04:42)
--- NOTE | 2023-07-17 06:06 | EKG12_ITS ---
Test Reason : PRE-OP Blood Pressure : / mmHG Vent. Rate : 067 BPM Atrial Rate : 067 BPM P-R Int : 154 ms QRS Dur : 104 ms QT Int : 434 ms P-R-T Axes : 063 -37 032 degrees QTc Int : 458 ms Normal sinus rhythm Left axis deviation Minimal voltage criteria for LVH, may be normal variant ( [place] product ) Inferior infarct , age undetermined Abnormal ECG When compared with ECG of 20-JAN-2021 09:46, No significant change was found Confirmed by Domo Montes ([id number]), acquisition editor IMELDA HARTLEY ([id number]) on 07/17/2023 10:21:15 AM Referred By: ANESTHESIA Confirmed By:Domo Montes
[2023-07-17] MEDS: Morphine 2 MG/ML Syringe 4 MG IV (08:23)
[2023-07-17] MEDS: Ondansetron 4 MG/2 ML Vial IV (08:23)
[2023-07-17] MEDS: Lactated Ringers 1,000 ML 15 ML IV (09:46)
--- NOTE | 2023-07-17 09:50 | CONS.ORTHO ---
HPI Consult Data Date of Consult: 07/17/23 HPI Narrative HPI Narrative: LAUREN OLIVERA, is a 78 F who presents with low back pain radiating to the left anterior thigh. I saw her last week when she was admitted for pain control. She then underwent epidural injection by Dr. Harrington last week. The injection helped only for about 24 hours. She is now severely debilitated and is reliant on the walker. She got readmitted for pain control earlier this week. She is hoping for surgical intervention to relieve some of her pain. She says that majority of her pain is in the left anterior thigh starting in the lateral hip going towards the medial knee and possibly 1 or 2 inches below the knee. She denies any pain into the hicks or ankle or toes. She denies any right-sided symptoms. She is a diabetic with last A1c done in early June which was in the sixes. She has had higher blood glucose levels recently because of the recent steroids that she has had oral as well as epidural. She has been seen by me and Dr. Willett. [facility] Medical History Lumbar scoliosis Dehydration Intractable low back pain Lumbar radiculopathy Lumbar strain Sciatic pain Lesion of urinary bladder Obstruction of left ureteropelvic junction (UPJ) due to stone Wears glasses Depression Anxiety Diabetes High cholesterol Restless legs Back pain Dietary restriction Non-smoker Hx of malignant carcinoid tumor History of stress test History of echocardiogram Home Medications ?Medication ?Instructions ?Recorded ?Last Taken ?Type atorvastatin 20 mg tablet 20 mg PO QHS cholesterol 01/19/21 07/15/23 History empagliflozin 25 mg tablet 25 mg PO DAILY diabetes 01/19/21 07/15/23 History (Jardiance) metformin 500 mg tablet 500 mg PO Q6H diabetes 01/19/21 07/15/23 History gabapentin 300 mg capsule 300 mg PO TID 30 days #90 caps 07/07/23 07/15/23 Rx duloxetine 30 mg capsule,delayed 30 mg PO DAILY #60 caps 07/11/23 07/15/23 Rx release oxycodone 5 mg tablet 10 - 15 mg (2 - 3 x 5 mg) PO Q6H 07/11/23 07/16/23 Rx PRN PRN Pain Score 1-10 7 days #50 tabs prednisone 20 mg tablet 40 mg (2 x 20 mg) PO DAILY #10 tabs 07/11/23 07/15/23 Rx Allergy/AdvReac Type Severity Reaction Status Date / Time cefdinir (From Omnicef) Allergy Swelling/FACIAL Verified 07/06/23 18:20 AND HIVES Family History (Updated 07/16/23 @ 03:[address] Lisa Vargas MD) Mother Diabetes Father Heart disease Hypertension Surgical History Hx of cystoscopy Hx of parathyroidectomy Hx of colonoscopy History of cystoscopy History of laparotomy Hx of arthroscopic knee surgery Hx of shoulder surgery Hx of hysterectomy, total Social History (Updated 07/16/23 @ 03:[address] Lisa Vargas MD) household members: spouse Smoking Status: Never smoker alcohol intake: never substance use type: does not use Vital Signs Vital Signs Vital Signs: 07/16/23 14:00 07/16/23 20:15 07/16/23 20:53 Temperature 97.5 F L 97.5 F L Temperature Source Oral Oral Pulse Rate 85 78 Pulse Strength Normal (2+) Respiratory Rate 16 14 Respiratory Effort Respiratory Depth Respiratory Pattern Blood Pressure 150/72 H 141/60 H Blood Pressure Mean 98 87 Blood Pressure Source Monitor Monitor Blood Pressure Position Semi-Fowlers Semi-Fowlers Blood Pressure Location Right Arm Right Arm Pulse Ox 96 98 Oxygen Delivery Method Room Air Room Air 07/16/23 22:00 07/17/23 02:15 07/17/23 03:00 Temperature 96.6 F L Temperature Source Temporal Pulse Rate 71 Pulse Strength Respiratory Rate 14 Respiratory Effort Normal Non-Labored Normal Non-Labored Respiratory Depth Normal Normal Respiratory Pattern Normal Normal Blood Pressure 160/74 H Blood Pressure Mean 102 Blood Pressure Source Monitor Blood Pressure Position Semi-Fowlers Blood Pressure Location Right Arm Pulse Ox 97 Oxygen Delivery Method Room Air Room Air Room Air 07/17/23 07:40 07/17/23 08:11 07/17/23 08:15 Temperature 96.8 F L Temperature Source Temporal Pulse Rate 69 Pulse Strength Normal (2+) Respiratory Rate 18 Respiratory Effort Respiratory Depth Respiratory Pattern Blood Pressure 170/73 H Blood Pressure Mean 105 Blood Pressure Source Monitor Blood Pressure Position Semi-Fowlers Blood Pressure Location Right Arm Pulse Ox 97 99 Oxygen Delivery Method Room Air Room Air Weight Weight: 125 lb 10.616 oz Body Mass Index (BMI) 21.5 Physical Exam Narrative Examination the back shows midline and left paraspinal tenderness. Neurologic evaluation of lower extremity shows 5 x 5 power in all muscle except for grade 4+ quadriceps and iliopsoas on the left. Passive straight leg raise test is positive on the left. Const alert and oriented x3 Lab / Micro Data 07/16/23 05:25 07/16/23 05:25 Labs: Laboratory Results - last 24 hr 07/16/23 11:18: POC Glucose 145 H 07/16/23 16:54: POC Glucose 129 H 07/16/23 20:46: POC Glucose 156 H 07/17/23 02:40: POC Glucose 126 H Assessment & Plan Assessment/Plan (1) Lumbar radiculopathy: (2) Spondylolisthesis, lumbar region: (3) Spinal stenosis of lumbar region with neurogenic claudication: (4) Lumbar scoliosis: QUALIFIERS: Scoliosis type: other secondary scoliosis Qualified Code(s): M41.56 - Other secondary scoliosis, lumbar region PLAN: Plan I again went over her x-rays and MRI. She has degenerative lumbar scoliosis. She also has L4-5 grade 1 spondylolisthesis. MRI shows L4-5 bilateral lateral recess and foraminal stenosis, and L3-4 left extraforaminal disc extrusion. L4-5 also shows a tiny left extraforaminal disc extrusion. I again explained the imaging findings in detail. I went over treatment options with the patient. I gave her options of continued nonsurgical treatment versus surgery. I explained to her that the chronic L4-5 stenosis is the source of her longstanding low back pain and difficulty walking distances, while her 2-3 week history of severe left anterior thigh pain is likely from the acute disc extrusion in the L3-4 extraforaminal left space. For her chronic L4-5 stenosis, she may continue with nonsurgical treatment until she reaches a stage where her symptoms are affecting her quality of life or her walking distance is reduced, at which time we may consider surgery which may include a fusion. For acute L3-4 left foraminal disc herniation, she may undergo additional injections and physical therapy versus move forward with surgery. Since the injection last week did not help, patient wishes to proceed with surgical intervention. Surgical options were discussed. Left L3-4 extraforaminal discectomy with possible L4-5 extraforaminal decompression was discussed in detail. All risk benefits and alternatives were discussed. The risks include but are not limited to infection, bleeding, hematoma formation, need for further surgery, need for fusion in the future, injury to nerves and vessels, nerve root injury, weakness, persistent numbness, persistent pain, recurrent disc herniation, DVT, pulm embolism, pneumonia, atelectasis, cardiopulmonary event. Patient understands and agrees to proceed with surgery. Consent was signed. Charges/Coding Visit Charges Inpatient E&M: 91460 Init Hosp L3
--- NOTE | 2023-07-17 10:30 | RAD_ITS ---
PROCEDURE: Laminectomy and mitral discectomy at L3-L4 level. DATE OF EXAMINATION: July 17, 2023. INDICATION: Female, 78 years old. Low back pain. FLUOROSCOPY TIME (if supplied): (11.3 seconds) minutes/seconds. 4.82 mGy. 2 images were submitted. RAD/Lumbar Spine 2 or 3 Views IMPRESSION: The localization instrument is seen posterior to the L3-L4 disc space level. Electronically Signed: Ariel Galicia MD at 12:22 EDT ,
[2023-07-17] MEDS: Clindamycin 900 MG/50 ML BAG 75 MG IV ×2 (10:45→17:38)
[2023-07-17] MEDS: Dexamethasone IV Preserv Free 10 MG/ML VIAL IV (11:40)
[2023-07-17] MEDS: Bupivacaine Mpf 0.5% 30 ML VIAL (11:58)
--- NOTE | 2023-07-17 12:12 | OP.PCM_ITS ---
Report of Operation Date of Procedure: 07/17/23
--- NOTE | 2023-07-17 12:12 | PCM.OPRPT ---
Report of Operation Date of Procedure: 07/17/23
--- NOTE | 2023-07-17 12:20 | OP.PCM_ITS ---
Report of Operation Date of Procedure: 07/17/23 Description of Surgical Findings:: Preoperative diagnosis: L3-4 left extra foraminal disc herniation Postoperative diagnosis: Same Name of procedure: L3-4 left extraforaminal discectomy CPT 97998 Attending Surgeon: Dr. Alton Oro Distribution Transformer Assembler surgeon: Dr. Antonio Willett Estimated blood loss: 20 mL Anesthesia: General Indications: Patient is a 78-year-old lady who presented with low back pain and severe left lower extremity radiation, predominantly in the an terior thigh with severe burning. Imaging showed lumbar degenerative scoliosis with convexity to the left. MRI revealed L3-4 left foraminal disc herniation. All options of treatment were discussed which included continued nonoperative treatment measures like rest physical therapy, injections. After failing a prolonged nonsurgical treatment including epidural injection, patient requested surgical intervention for discectomy. All risks and benefits associated with the procedure were explained to the patient. The risks include but are not limited to infection, bleeding, injury to nerves and vessels, persistent paresthesia, incidental dural tear, recurrent disc herniation, spinal instability and need for fusion or other procedures in future, persistent pain, persistent weakness and numbness, etc. Procedure: The patient was identified in the preoperative holding suite using Unique patient identifiers. Skin was marked, consent was reviewed, and all questions were answered. The patient was then brought back to the operative room. A surgical timeout was performed to make sure correct procedure was being done on the correct patient and all operative room staff were on the same page. General endotracheal anesthesia was then given to the patient. The patient was then turned prone onto a Justus table over a Duke frame. The back was prepped and draped in usual fashion. Preoperative antibiotic was injected IV. A final timeout was then again done just before starting the procedure. C-arm AP view was utilized to identify and the plane of the L3-4 disc. Vertical incision were marked 1 inch lateral to the pedicle border. A 1 inch vertical incision was taken in this paramedian direction. Bovie was utilized to dissect through the subcutaneous tissue up to the fascia. The fascia was bovied and finger dissection allowed palpation of the L3-4 facet joint as well as the transverse process. Tubular retractors with serial tubular dilators were used using the C-arm AP view to dock onto the junction of the superior border of TP and lateral border of supraventricular process of L4. This was confirmed on lateral view to make sure the tubular retractor were in direction of the disc space. Bovie was utilized to remove remnant muscle tissue to expose the lateral edge of the superior articular process. A bur was utilized to remove a portion of the superior medial transverse process, superior pedicle, lateral superior articular process of L4. Minimal burring was performed so as not to damage the facet joint. Bone wax was utilized to reduce bleeding for right bone surfaces. Kerrison rongeur was utilized to undercut the SAP from the lateral aspect. The left L4 pedicle was palpated. [place] retractor was utilized to retract the exiting nerve root. Nerve root retractor was then placed for the remainder of the case. Vernon was utilized to reach its medial border as well as evaluate the L3-4 left foramen. Bipolar cautery was utilized to achieve hemostasis. Disc space was confirmed on the C arm. A nerve hook was then utilized to remove the extruded fragments that had migrated superiorly into the foramen. The extruded fragment came out in a single large piece and this was comparable to the size seen on the MRI. The nerve hook and Vernon were then used to probe inferiorly and superiorly and medially to tease out more disc fragments. Further loose disc fragments from the disc space were also removed with help of pituitary. Irrigation of the disc space through an Angiocath was performed to remove any further loose disc fragments. once adequate decompression was obtained by removal of all loose disc fragments including the ones that were extruded, irrigation was done with normal saline and Irrisept. 10 mg of preservative-free dexamethasone was then sprinkled over the exiting nerve root. A small piece of Gelfoam was then placed over the space lateral to the SAP. The tubular retractor was then removed. Further irrigation was given. And closure was done in layers, 0 Vicryl for the deep fascia, 2-0 Vicryl for subcutaneous tissue, and 4-0 Monocryl for the skin. The skin closure was augmented with Dermabond. 2 x 2 gauze was then placed over the wound covered with Tegaderm. The patient was then turned supine onto a hospital bed. The patient was extubated and taken to PACU in stable condition. The patient tolerated the procedure well and no complications occurred. No instrumentation was utilized in this case. No dural tear occurred in this case. I was present for the entirety of the case and performed the surgery myself. Surgeon: Alton Oro clamper: Antonio Willett Admit VTE Documentation VTE Mechan Device Prophylaxis: SCD's Procedures Musculoskeletal [id number]: Other Procedure See Report
[2023-07-17] MEDS: Famotidine 20 MG Tablet PO ×2 (13:11→22:11)
[2023-07-17] MEDS: Docusate Sodium 100 MG Capsule PO ×2 (13:11→21:59)
[2023-07-17] MEDS: DULoxetine Hcl 30 MG Capsule PO (13:11)
[2023-07-17] MEDS: oxyCODONE 5 MG Tablet PO (13:18)
[2023-07-17] MEDS: Acetaminophen 500 MG Tablet 1000 MG PO ×2 (13:18→21:59)
[2023-07-17] MEDS: Ketorolac 15 MG/ML Vial IV ×2 (13:18→21:59)
[2023-07-17] MEDS: Methocarbamol 500 MG Tablet 1000 MG PO ×3 (13:18→21:59)
[2023-07-17] MEDS: Gabapentin 300 MG Capsule PO ×2 (13:19→22:07)
[2023-07-17] MEDS: Insulin Lispro 100 UNIT/ML INSULN.PEN SC ×2 (16:31→21:59)
[2023-07-17 17:23] LABS: Bedside Glucose 233 mg/dL (74-106)
[2023-07-17] MEDS: 0.9% Saline Lock 10 ML Syringe IV (21:58)
[2023-07-17] MEDS: Atorvastatin Calcium 20 MG Tablet PO (21:59)
[2023-07-17 22:38] LABS: Bedside Glucose 199 mg/dL (74-106)
[2023-07-18 01:12] VITALS: BP 134/59; PULSE 61; RESP 16; TEMP 36.3; O2SAT 98
[2023-07-18] MEDS: 0.9% Saline Lock 10 ML Syringe IV ×2 (03:16→06:44)
[2023-07-18] MEDS: Clindamycin 900 MG/50 ML BAG 75 MG IV (03:16)
[2023-07-18 04:50] VITALS: BP 145/56; PULSE 58; RESP 16; TEMP 36.6; O2SAT 98
[2023-07-18 06:00] VITALS: BMI 21.4
[2023-07-18] MEDS: Ketorolac 15 MG/ML Vial IV (06:43)
[2023-07-18] MEDS: Gabapentin 300 MG Capsule PO ×2 (06:43→13:17)
[2023-07-18] MEDS: Acetaminophen 500 MG Tablet 1000 MG PO ×2 (06:43→13:17)
[2023-07-18 06:44] LABS: Hematocrit 37.6 % (37-47); Hemoglobin 12.2 g/dL (12.0-15.0); Mean Corp Hgb Conc 32.4 g/dL (32-36); Mean Corpuscular Hgb 28.8 pg (27.0-32.0); Mean Corpuscular Volume 88.9 fL (81-99); Mean Platelet Vol. 10.1 fl (6.2-12.0); Platelet Count 229 K/mm3 (150-450); RBC Distribution Width CV 13.2 % (11.6-14.6); Red Blood Count 4.23 M/mm3 (4.2-5.4); White Blood Count 10.6 K/mm3 (4.4-11.0)
[2023-07-18 06:57] LABS: Bedside Glucose 136 mg/dL (74-106)
[2023-07-18 08:08] VITALS: O2SAT 96
--- NOTE | 2023-07-18 08:13 | CASEMGMT ---
Met with patient to complete CHENG form on 07/17/23. CHENG form explained to patient who voiced understanding and signed form. Original form placed in pt?s chart and copy provided to patient. Inna Escobedo, Discharge Planning Asst
[2023-07-18 08:42] VITALS: BP 150/61; PULSE 62; RESP 18; TEMP 36.9; O2SAT 99
[2023-07-18] MEDS: Ensure Surgery 237 ML LIQUID PO (08:44)
[2023-07-18] MEDS: Docusate Sodium 100 MG Capsule PO (08:45)
[2023-07-18] MEDS: DULoxetine Hcl 30 MG Capsule PO (08:45)
[2023-07-18] MEDS: Methocarbamol 500 MG Tablet 1000 MG PO ×2 (08:45→13:17)
[2023-07-18] MEDS: Famotidine 20 MG Tablet PO (08:45)
[2023-07-18] MEDS: Meloxicam 15 MG Tablet PO (08:45)
[2023-07-18 08:46] LABS: Anion Gap 9 (5-15); BUN 17 mg/dL (7-18); BUN/Creat Ratio 39.4 RATIO (10-20); Calcium,Total 8.4 mg/dL (8.5-10.1); Chloride 104 mmol/L (98-107); Creatinine, Serum 0.43 mg/dL (0.55-1.02); EST Glomerular Filtration Rate 151 mL/min (>60); Est Glom Filt Rate - Afr Amer 182 mL/min (>60); Estimated Creatinine Clearance 51.66 ml/min; Glucose 150 mg/dL (74-106); Sodium Level 135 mmol/L (136-145)
[2023-07-18] MEDS: Insulin Lispro 100 UNIT/ML INSULN.PEN SC (12:00)
[2023-07-18 12:27] LABS: Bedside Glucose 287 mg/dL (74-106)
[2023-07-18 12:50] VITALS: BP 133/59; PULSE 81; RESP 18; TEMP 36.7; O2SAT 99
--- NOTE | 2023-07-18 13:19 | CASEMGMT ---
PT states that the pt did well with therapy this morning. VELVET MOLINA to pt room at this time regarding DC planning. Pt states that she would be interested in attending OP therapy for PT. TC to Dr. Oro and Dr. Oro states that the pt will not need OP at time of DC and that the plan will be for the pt to follow up in his office in 2 weeks and then consider OP therapy at that time. VELVET MOLINA to pt room and updated pt with this information. Pt states that she agrees with this plan. Pt states that she already has a FWW at home to use. Pt denies further needs and is requesting to get DC today. Dr. Kitchen updated and made aware.
--- NOTE | 2023-07-18 13:20 | PN.HOSP_ITS ---
Reason for Visit Reason for Visit: Diagnoses Other secondary scoliosis, lumbar region (07/16/23) Spondylolisthesis, lumbar region (07/16/23) Spinal stenosis, lumbar region with neurogenic claudication (07/16/23) Other intervertebral disc degeneration, lumbar region (07/16/23) Radiculopathy, lumbar region (07/16/23) Other specified health status (07/16/23) Subjective Subjective Late entry note for 07/17/2023 Patient underwent L3-4 left extraforaminal discectomy Objective Data Objective Data Vital Signs: Vital Signs Temp Pulse Resp BP Pulse Ox O2 Del Method 98.1 F 81 18 133/59 H 99 Room Air 07/18/23 12:50 07/18/23 12:50 07/18/23 12:50 07/18/23 12:50 07/18/23 12:50 07/18/23 12:50 Oxygen Delivery Method Room Air Weight: 56.8 kg Body Mass Index (BMI) 21.4 Intake & Output: Intake and Output for Last 24 Hours 07/16/23 07/17/23 07/18/23 23:59 23:59 23:59 Intake Total 1561.67 / 1561.67 224.5 / 584.5 1170 / 1170 Output Total 350 / 350 Balance 1561.67 / 1561.67 -125.5 / 234.5 1170 / 1170 Lab / Micro Data 07/18/23 06:18 07/18/23 06:18 Labs: Laboratory Results - last 24 hr 07/17/23 16:29: POC Glucose 233 H 07/17/23 21:55: POC Glucose 199 H 07/18/23 06:18: WBC 10.6, RBC 4.23, Hgb 12.2, Hct 37.6, MCV 88.9, MCH 28.8, MCHC 32.4, RDW Std Deviation 43.0, RDW Coeff of Lisa 13.2, Plt Count 229, MPV 10.1, S odium 135 L, Potassium 4.0, Chloride 104, Carbon Dioxide 22.0, Anion Gap 9, BUN 17, Creatinine 0.43 L, Estim Creat Clear Calc 51.66, Est GFR (MDRD) Af Amer 182, Est GFR (MDRD) Non-Af 151, BUN/Creatinine Ratio 39.4 H, Glucose 150 H, Calcium 8.4 L 07/18/23 06:39: POC Glucose 136 H 07/18/23 11:59: POC Glucose 287 H Physical Exam Narrative GENERAL: cooperative HEENT: Atraumatic; normocephalic EYES; Anicteric, Normal Conjunctiva NECK; supple, normal thyroid, RESPIRATORY: Diminished to auscultation CARDIOVASCULAR: Regular S1 S2, GI: soft, normoactive bowel sounds, : No Renal angle tenderness; EXTREMITIES: No edema, no clubbing, MUSCULOSKELETAL: no muscle wasting NEURO: Awake; no lateralizing signs. SKIN: No Rash PSYCH; Flat affect Assessment & Plan Assessment/Plan (1) Failure of outpatient treatment: (2) Bulging of lumbar intervertebral disc without myelopathy: PLAN: Plan Patient is a 78-year-old lady who presented with persistent back pain. Recent MRI on 07/06/2023 demonstrated Lateral disc bulge/protrusion at L3-4 contacting the emerging left L3 nerve root lateral to the left neuroforamen with potential nerve root impingement. Patient had apparently been treated with epidural steroid injection which did not relieve her pain 1. Intractable back pain ?Recent MRI on 07/06/2023 demonstrated Lateral disc bulge/protrusion at L3-4 contacting the emerging left L3 nerve root lateral to the left neuroforamen with potential nerve root impingement. Patient had apparently been treated with epidural steroid injection which did not relieve her pain. Patient admitted by Dr. Montenegro for surgical intervention ? 07/17/2023; patient underwent Patient underwent L3-4 left extraforaminal discectomy 2. 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 Home medications held please on Accu-Cheks before meals and at bedtime with sliding scale coverage 3. Diabetic polyneuropathy ? Patient is on gabapentin 4. Depression ? Patient is on duloxetine 5. DVT prophylaxis ? SCDs for now Time spent in the patient's overall evaluation,decision-making process, review of diagnostic data, adjustment of management, discussion with other providers, nursing nursing and ancillary staff involved in patient's care documentation, 35 Minutes Charges/Coding Visit Charges Inpatient E&M: 54467 Subs Hosp L2
--- NOTE | 2023-07-18 13:34 | PN.ORTHO_ITS ---
Subjective Subjective Postop day 1 status post L3-4 left extraforaminal discectomy. Pain well- controlled. Walked the hallways with PT. Objective Data Objective Data Vital Signs: Vital Signs Temp Pulse Resp BP Pulse Ox O2 Del Method 98.1 F 81 18 133/59 H 99 Room Air 07/18/23 12:50 07/18/23 12:50 07/18/23 12:50 07/18/23 12:50 07/18/23 12:50 07/18/23 12:50 Oxygen Delivery Method Room Air Weight: 125 lb 3.561 oz Body Mass Index (BMI) 21.4 Intake & Output: Intake and Output for Last 24 Hours 07/16/23 07/17/23 07/18/23 23:59 23:59 23:59 Intake Total 1561.67 / 1561.67 224.5 / 584.5 1170 / 1170 Output Total 350 / 350 Balance 1561.67 / 1561.67 -125.5 / 234.5 1170 / 1170 Lab / Micro Data 07/18/23 06:18 07/18/23 06:18 Labs: Laboratory Results - last 24 hr 07/17/23 16:29: POC Glucose 233 H 07/17/23 21:55: POC Glucose 199 H 07/18/23 06:18: WBC 10.6, RBC 4.23, Hgb 12.2, Hct 37.6, MCV 88.9, MCH 28.8, MCHC 32.4, RDW Std Deviation 43.0, RDW Coeff of Lisa 13.2, Plt Count 229, MPV 10.1, S odium 135 L, Potassium 4.0, Chloride 104, Carbon Dioxide 22.0, Anion Gap 9, BUN 17, Creatinine 0.43 L, Estim Creat Clear Calc 51.66, Est GFR (MDRD) Af Amer 182, Est GFR (MDRD) Non-Af 151, BUN/Creatinine Ratio 39.4 H, Glucose 150 H, Calcium 8.4 L 07/18/23 06:39: POC Glucose 136 H 07/18/23 11:59: POC Glucose 287 H Physical Exam Narrative Dressing?CDI. Neurologic evaluation of lower extremity shows 5 x 5 power normal shows normal sensations in all dermatomes. Assessment & Plan Assessment/Plan (1) S/P discectomy: PLAN: Plan Postop day 1 status post discectomy. Patient doing well. Pain well-controlled. Walked the hallway with PT. Okay to discharge home and follow-up with me in 2 weeks. Keep dressing clean and dry. Okay to shower starting tomorrow so long as Tegaderm is staying intact and not peeling off. In 5 days, okay to remove Tegaderm and gauze and replace with Band-Aids and then change daily thereafter. No bending lifting twisting.
--- NOTE | 2023-07-18 13:35 | DS.PCM_ITS ---
Providers Date of Admission: 07/16/23 Date of Discharge: 07/18/23 Primary Care Physician: Dr. Brooks Frank MD Reason For Visit: BACK PAIN Diagnosis Discharge Diagnosis (1) Failure of outpatient treatment: Status: Acute Code(s): Z78.9 - Other specified health status (2) Bulging of lumbar intervertebral disc without myelopathy: Status: Acute Code(s): M51.36 - Other intervertebral disc degeneration, lumbar region Plan Patient is a 78-year-old lady who presented with persistent back pain. Recent MRI on 07/06/2023 demonstrated Lateral disc bulge/protrusion at L3-4 contacting the emerging left L3 nerve root lateral to the left neuroforamen with potential nerve root impingement. Patient had apparently been treated with epidural steroid injection which did not relieve her pain 1. Intractable back pain ?Recent MRI on 07/06/2023 demonstrated Lateral disc bulge/protrusion at L3-4 contacting the emerging left L3 nerve root lateral to the left neuroforamen with potential nerve root impingement. Patient had apparently been treated with epidural steroid injection which did not relieve her pain. Patient admitted by Dr. Montenegro for surgical intervention ? 07/17/2023; patient underwent Patient underwent L3-4 left extraforaminal discectomy 2. 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 Home medications held please on Accu-Cheks before meals and at bedtime with sliding scale coverage 3. Diabetic polyneuropathy ? Patient is on gabapentin 4. Depression ? Patient is on duloxetine 5. DVT prophylaxis ? SCDs for now Time spent in the patient's overall evaluation,decision-making process, review of diagnostic data, adjustment of management, discussion with other providers, nursing nursing and ancillary staff involved in patient's care documentation, 35 Minutes Medications at Discharge Home Medications atorvastatin 20 mg tablet 20 mg PO QHS cholesterol 01/19/21 empagliflozin 25 mg tablet (Jardiance) 25 mg PO DAILY diabetes 01/19/21 metformin 500 mg tablet 500 mg PO Q6H diabetes 01/19/21 gabapentin 300 mg capsule 300 mg PO TID 30 days #90 caps 07/07/23 duloxetine 30 mg capsule,delayed release 30 mg PO DAILY #60 caps 07/11/23 oxycodone 5 mg tablet 10 - 15 mg (2 - 3 x 5 mg) PO Q6H PRN PRN Pain Score 1-10 7 days #50 tabs 07/11/23 prednisone 20 mg tablet 40 mg (2 x 20 mg) PO DAILY #10 tabs 07/11/23 acetaminophen 325 mg tablet 650 mg (2 x 325 mg) PO Q4H PRN PRN Fever, pain 1- 11/21 #0 tabs 07/18/23 Physical Exam Narrative GENERAL: cooperative HEENT: Atraumatic; normocephalic EYES; Anicteric, Normal Conjunctiva NECK; supple, normal thyroid, RESPIRATORY: Diminished to auscultation CARDIOVASCULAR: Regular S1 S2, GI: soft, normoactive bowel sounds, : No Renal angle tenderness; EXTREMITIES: No edema, no clubbing, MUSCULOSKELETAL: no muscle wasting NEURO: Awake; no lateralizing signs. SKIN: No Rash PSYCH; Flat affect Weight / BMI Weight Weight: 56.8 kg Body Mass Index (BMI) 21.4 ABG / Lab / Microbiology Data 07/18/23 06:18 07/18/23 06:18 Laboratory: Laboratory Results - last 24 hr 07/17/23 16:29: POC Glucose 233 H 07/17/23 21:55: POC Glucose 199 H 07/18/23 06:18: WBC 10.6, RBC 4.23, Hgb 12.2, Hct 37.6, MCV 88.9, MCH 28.8, MCHC 32.4, RDW Std Deviation 43.0, RDW Coeff of Lisa 13.2, Plt Count 229, MPV 10.1, S odium 135 L, Potassium 4.0, Chloride 104, Carbon Dioxide 22.0, Anion Gap 9, BUN 17, Creatinine 0.43 L, Estim Creat Clear Calc 51.66, Est GFR (MDRD) Af Amer 182, Est GFR (MDRD) Non-Af 151, BUN/Creatinine Ratio 39.4 H, Glucose 150 H, Calcium 8.4 L 07/18/23 06:39: POC Glucose 136 H 07/18/23 11:59: POC Glucose 287 H D/C Instructions Discharge Diet: No restrictions Discharge Activity: Return to Normal Activity Call your doctor if you observe: Fever of 101 or Higher, Shortness of breath, Fainting spells and Chest pain Meaningful Use Info Meaningful Use Meaningful Use Diagnoses (Choose all that apply): None applicable Ischemic Stroke Statin Dosing Therapy Reference: STATIN DOSE THERAPY REFERENCE: * Patients > 75 years receive moderate or high dose statin therapy. * Patients 75 years or YOUNGER should receive HIGH intensity statin dose unless contraindicated. You will be required to document reason for non-treatment if statin daily dose does not meet guidelines. HIGH DOSE STATIN THERAPY DAILY Atorvastatin > than or = to 40 mg Rosuvastatin > than or = to 20 mg Amlodipine + Atorvastatin > than or = to 2.5/40 mg Ezetimibe + Simvastatin 10/80 mg Simvastatin 80mg Discharge Plan Admission Admit Date/Time: 07/16/23 08:47 Attending Provider: Jamison Kitchen Primary Care Provider: Brooks Frank Consulting Providers: Lisa Vargas; Antonio Willett Discharge Orders/Prescriptions Prescriptions: New acetaminophen 325 mg Tablet 650 mg PO Q4H PRN PRN (Reason: Fever, pain 1-11/21) Qty: 0 0RF Continued metformin 500 mg Tablet 500 mg PO Q6H atorvastatin 20 mg Tablet 20 mg PO QHS Jardiance 25 mg Tablet 25 mg PO DAILY oxycodone 5 mg Tablet 10 - 15 mg PO Q6H PRN PRN (Reason: Pain Score 1-10) 7 Days Qty: 50 0RF duloxetine 30 mg Capsule,Delayed Release(Dr/Ec) 30 mg PO DAILY Qty: 60 0RF Rx Instructions: one daily for 5 days, then increase to two once a day thereafter prednisone 20 mg tablet 40 mg PO DAILY Qty: 10 0RF Rx Instructions: two daily for three days, then one daily for 4 days, then stop gabapentin 300 mg capsule 300 mg PO TID 30 Days Qty: 90 0RF Referrals / Follow Up: Brooks Frank MD [Primary Care Provider] - Within 2 Weeks Antonio Willett DO [Med Staff - Active Staff] - Within 1 Week Disposition Disposition (needs filled in before D/C Order can be placed): Home, Self Care Charges/Coding Visit Charges Inpatient E&M: 10688 Disch Hosp >30min
--- NOTE | 2023-07-18 15:17 | PHA.DC_ITS ---
Pharmacy [facility] Med Reconciliation Pharmacy Service has performed discharge medication reconciliation for this patient. The patient's discharge medication list was reviewed for discrepancies and discrepancies were resolved. Medications at Discharge Home Medications atorvastatin 20 mg tablet 20 mg PO QHS cholesterol 01/19/21 empagliflozin 25 mg tablet (Jardiance) 25 mg PO DAILY diabetes 01/19/21 metformin 500 mg tablet 500 mg PO Q6H diabetes 01/19/21 gabapentin 300 mg capsule 300 mg PO TID 30 days #90 caps 07/07/23 duloxetine 30 mg capsule,delayed release 30 mg PO DAILY #60 caps 07/11/23 oxycodone 5 mg tablet 10 - 15 mg (2 - 3 x 5 mg) PO Q6H PRN PRN Pain Score 1-10 7 days #50 tabs 07/11/23 prednisone 20 mg tablet 40 mg (2 x 20 mg) PO DAILY #10 tabs 07/11/23 acetaminophen 325 mg tablet 650 mg (2 x 325 mg) PO Q4H PRN PRN Fever, pain 1- 10 #0 tabs 07/18/23
== END 2023-07-18 13:39 | disposition home or self-care (01) ==
LOC: ED 03:18 → PCU 04:36
PROVIDERS: Orthopaedic Surgery; Orthopaedic Surgery Orthopaedic Surgery of the Spine; Admitting Provider Family Medicine; Emergency Provider Emergency Medicine; PCP Family Medicine; Visit Provider Internal Medicine
PROC: (CPT 63030; principal; 2023-07-17 10:20)
DX: M51.16 Intervertebral disc disorders with radiculopathy, lumbar region (principal); E11.42 Type 2 diabetes mellitus with diabetic polyneuropathy; M48.062 Spinal stenosis, lumbar region with neurogenic claudication; E78.00 Pure hypercholesterolemia, unspecified; M43.16 Spondylolisthesis, lumbar region; Z79.84 Long term (current) use of oral hypoglycemic drugs; M41.86 Other forms of scoliosis, lumbar region; M51.36 Other intervertebral disc degeneration, lumbar region; Z79.899 Other long term (current) drug therapy; F41.9 Anxiety disorder, unspecified; F32.A Depression, unspecified
CPT/HCPCS: 63056; 00630; 36415; 72100; 76000; 80048; 80053; 82962; 85025; 85027; 93005; 94668; 96361; 96365; 96366; 96375; 96376; 97162; 99221; 99283; J7030; J7120; A4216; G0378; J2405

== ENCOUNTER → 2023-09-19 | Outpatient (CLI) | payer MEDICARE, OTHER, SELFPAY ==
--- NOTE | 2023-09-19 11:33 | RAD_ITS ---
STUDY: X-RAY - PELVIS AND LEFT HIP REASON FOR EXAM: Female, 78 years old. Left groin pain. TECHNIQUE: 3 views of the pelvis and hip. COMPARISON: None. FINDINGS: Normal bowel gas pattern with air seen to the rectum. Moderate amount of feces in colon. Phleboliths. Mild arthrosis of both sacroiliac joints. Normal bilateral superior and inferior pubic rami. Normal pubic symphysis. Normal bilateral ischial tuberosities. Mild arthrosis of both hips. RAD/HIP, UNI W/ Pelvis 2-3 Views IMPRESSION: Osteopenia with mild arthrosis of both sacroiliac joints and both hips. No acute abnormality or erosive changes. Electronically Signed: Donaldo Bermeo MD at 15:41 EDT ,
== END | disposition home or self-care (01) ==
LOC: MTRAD 11:31
PROVIDERS: PCP Family Medicine; Referring Provider Anesthesiology Pain Medicine; Visit Provider Anesthesiology Pain Medicine
DX: M25.552 Pain in left hip (principal)
CPT/HCPCS: 73502

== ENCOUNTER → 2023-10-11 | Outpatient (CLI) | payer MEDICARE, OTHER, SELFPAY ==
[2023-10-11 10:07] LABS: Absolute Lymphocyte Count 2.04 X10^3/uL (0.83-4.51); Absolute Neutrophil Count 3.4 X10^3/uL (2.0-7.7); Basophil# 0.04 X10^3/uL; Basophil% 0.6 % (0-1); Eosinophil# 0.17 X10^3/uL; Eosinophils% 2.7 % (0-5); Hematocrit 43.5 % (37-47); Lymphocyte # 2.04 X10^3/ul (0.83-4.51); Lymphocyte % 32.6 % (19-41); Mean Corp Hgb Conc 32.2 g/dL (32-36); Mean Corpuscular Hgb 29.4 pg (27.0-32.0); Mean Corpuscular Volume 91.4 fL (81-99); Mean Platelet Vol. 10.2 fl (6.2-12.0); Monocyte# 0.57 X10^3/uL; Monocyte% 9.1 % (0-10); NRBC Flagged by Analyzer 0 % (0-5); Neutrophil # 3.41 X10^3/uL (2.7-7.7); Neutrophil % 54.7 % (47-70); Platelet Count 303 K/mm3 (150-450); RBC Distribution Width SD 43.8 fl (35.1-43.9); Red Blood Count 4.76 M/mm3 (4.2-5.4); White Blood Count 6.3 K/mm3 (4.4-11.0)
[2023-10-11 10:13] LABS: Vitamin D,25 Hydroxy 32.7 ng/mL
[2023-10-11 10:16] LABS: Hemoglobin A1c 6.4 % (3.8-5.6)
[2023-10-11 10:30] LABS: ALB/GLOB Ratio 1.4 RATIO (0.9-2.4); AST(SGOT) 8 U/L (15-37); Alanine Aminotransfer ALT/SGPT 15 U/L (13-56); Alkaline Phosphatase 68 U/L (45-117); Anion Gap 10 (5-15); BUN 12 mg/dL (7-18); Calcium,Total 9.3 mg/dL (8.5-10.1); Chloride 105 mmol/L (98-107); Cholesterol 146 mg/dL (200); EST Glomerular Filtration Rate 127 mL/min (>60); Est Glom Filt Rate - Afr Amer 154 mL/min (>60); Globulin 2.9 g/dL (2.2-4.2); Glucose 125 mg/dL (74-106); High Density Lipoprotein 56 mg/dL; Potassium 3.6 mmol/L (3.5-5.1); Protein, Total 6.9 g/dL (6.4-8.2); Sodium Level 137 mmol/L (136-145); Triglycerides 152 mg/dL; Very Low Density Lipoprotein 30 mg/dL (5-40)
== END | disposition home or self-care (01) ==
LOC: MFPLAB 08:08
PROVIDERS: PCP Family Medicine; Visit Provider Family Medicine
DX: E11.8 Type 2 diabetes mellitus with unspecified complications (principal); M81.0 Age-related osteoporosis without current pathological fracture
CPT/HCPCS: 36415; 80053; 80061; 82306; 83036; 85025

== ENCOUNTER → 2023-10-16 | Outpatient (CLI) | payer MEDICARE, OTHER, SELFPAY ==
[2023-10-16 12:40] LABS: Vitamin B12 343 pg/mL (211-911)
[2023-10-16 13:05] LABS: Thyroid Stim Hormone (TSH) 0.844 uIU/mL (0.358-3.740)
== END | disposition home or self-care (01) ==
LOC: MTLAB 10:55
PROVIDERS: PCP Family Medicine; Referring Provider Family Medicine; Visit Provider Family Medicine
DX: R41.3 Other amnesia (principal); E11.8 Type 2 diabetes mellitus with unspecified complications
CPT/HCPCS: 36415; 82607; 84443

== ENCOUNTER 2023-10-30 12:00 | Outpatient (RCR) | payer MEDICARE, OTHER, SELFPAY ==
--- NOTE | 2023-08-02 13:57 | HP.PTEVAL_ITS ---
Patient's Visit Information Visit Information Visit Information: LAUREN OLIVERA is a 78 year old F referred to Physical Therapy by Dr. Alton Oro MD with a diagnosis of OTHER SPECIFIED POSTPROCEDURAL. Date of Evaluation: 08/02/23 Physical Therapist: Tom Dhaliwal, PT, Cert MDT, OCS Visit Plan Frequency: 2x /Week Duration: 8weeks Plan: S/P LUMBAR DISCECTOMY 07/16 NO BLT PT INTERVENTIONS DLS ,POSTURAL EX'S ,LLE STRENGTHENING ESPECIALLY QUADS/HIP ,LE FLEXABILITY ,ENDURANCE PROGRAM AND POSTURE/BODY MECHANICS Subjective Subjective: This 78 y/o female presents to physical therapy with s/p lumbar discectomy L3-4 ON 07/17/[address] Oro at [facility] d/c to home 07/19/23 with fww. Patient had lumbar radiculopathy since June . Patient had several ER visits due to severity of pain. Patient had MRI showed L3-4 Left extra foraminal disc herniation. Patient seen DR Oro Sunday no BLT x3 months. recommended PT . Medication gabapentin. Patient describes no abk pain but anterior thigh pain left. Patient continues to uses FWW okay to wean. Patient had pain management did not help. Aggravating factors sitting and unable to bend . Patient alleviating factors walking. C/O pin/needles left thigh. Coughing/sneezing-.Bowel/bladder-. Patient pain affects sleeping. Patient condition affects QOL and function. Patient to get back to normal. SOCAIL: VOCATION: Teacher Pain Left Lower Extremity: Pain Intensity (Out of 10): 6 Pain Intensity Range: 10 Comment: thigh Objective Objective: POSTURE: mild forward posture GAIT: reciprocal pattern with fww ( but is able to walk without device) SKIN: incision well approximate ,scabby NEURO: c/o pin/needles and paresthesia/tingling right thigh ,reflexes L3-4,L4-5 ,L5-S1 1/3 FLEXABILITY: hamstrings WFL LUMBAR ROM: flexion mod loss ,extension mod loss ,side glides min loss MMT: ( peak force) left quads 11.3 ,hip flexion 4/8 ,hamstrings 18.3 Special Tests L/S Slump test left side: Negative L/S Slump test right side: Negative L/S Left Straight Leg Raise: Negative L/S Right Straight Leg Raise: Negative Balance/Special Test Scores Oswestry Low Back Score: 31 Goals Goal 1:: I with HEP for back Goal Time Frame: 4-6 Weeks Goal 2:: Patient to improve lumbar ROM to improve function of recovery to put on shoes Goal Time Frame: 4-6 Weeks Goal 3:: Patient to walk with normal gait pattern in community no device Goal Time Frame: 4-6 Weeks Goal 4:: Patient to improve peak force quads/hip by 5-10 # strength to improve function and gait Goal Time Frame: 4-6 Weeks Goal 5:: Patient to improve back oswestry score by 5 points to improve QOL and function Goal Time Frame: 4-6 Weeks Goal 6:: Patient to demonstrate 60% improvement with less pain and improved function with ADLS and housework tasks Goal Time Frame: 4-6 Weeks Rehabilitation Potential Physical Therapy Diagnosis: This patient underwent s/p lumbar discectomy 07/16 with increase weakness left leg ,decrease lumbar ROM ,impairs walking and ADLS /housework tasks thus benefit from skilled PT Rehabilitation Potential: Good Anticipated Interventions Patient/Client Instruction: Educate patient on: Condition and Plan of Care For the Purpose of:: To decrease pain, To increase ROM, To improve muscle performance and motor function, To improve ability to perform ADL's, To increase tolerance to activity/condition/position, To improve ability of physical actions for home/community/work/leisure, To improve health of tissue, To decrease soft tissue restriction, To increase flexibility/ROM, To improve endurance and To improve tolerance to ADL's Therapeutic Exercise to Include: Strength training, Endurance training, Body mechanics, Postural training, Flexibilty training and Dynamic Lumbar St abilization Comment: LLE QUADS/HIP For the Purpose of:: To decrease pain, To increase ROM, To improve muscle performance and motor function, To improve ability to perform ADL's, To increase tolerance to activity/condition/position, To improve ability of physical actions for home/community/work/leisure, To improve health of tissue, To decrease soft tissue restriction, To increase flexibility/ROM, To improve endurance and To improve tolerance to ADL's Text: Thank you for the opportunity to evaluate your patient. For Medicare and Medicare HMO plans, please review the plan of care and approve it. It will need to be FAXED BACK to us at [phone] for Medicare purposes. For Medicare only, by signing this I certify the plan of care. Please let me know if there are questions or concerns regarding this plan of care. Physician Signature: Date:
--- NOTE | 2023-08-30 10:59 | HP.PTREVAL ---
Re-Evaluation Intro: Dr. Alton Oro MD, It has been my pleasure to treat LAUREN OLIVERA over the last 9 visits for OTHER SPECIFIED POSTPROCEDURAL. Please see the progress note below for an update on the physical therapy plan of care! Subjective Subjective: Patient seen has stress fx foot no interventions other than ice per DR Olvera Doing well with back ,ambulates with cane community only Objective Objective/Function: * PATEINT WILL CONTINUE TO BENEFIT FROM SKILLED PT WITH GOALS ARE APPROPRIATE AND PROGRESSING* POSTURE: mild forward posture GAIT: reciprocal gait with cane ,use no device in house SKIN: incision well approximate NEURO: c/o mild paresthesia/tingling right thigh ,reflexes L3-4,L4-5 ,L5-S1 1/3 FLEXABILITY: hamstrings WFL LUMBAR ROM: flexion mod loss ,extension mod loss ,side glides min loss MMT: ( peak force) left quads 22.4 ,hip flexion 8.7 ,hamstrings 28.8 Special Tests L/S Slump test left side: Negative L/S Slump test right side: Negative L/S Left Straight Leg Raise: Negative L/S Right Straight Leg Raise: Negative Plan Plan Plan: S/P LUMBAR DISCECTOMY 07/16 NO BLT PT INTERVENTIONS DLS ,POSTURAL EX'S ,LLE STRENGTHENING ESPECIALLY QUADS/HIP ,LE FLEXABILITY ,ENDURANCE PROGRAM AND POSTURE/BODY MECHANICS Balance/Gait/Functional tests Balance/Special Test Scores Oswestry Low Back Score: 21 Goals Goals Goal 1:: I with HEP for back Goal Time Frame: 4-6 Weeks Goal Progress: Progressing Goal 2:: Patient to improve lumbar ROM to improve function of recovery to put on shoes Goal Time Frame: 4-6 Weeks Goal Progress: Progressing Goal 3:: Patient to walk with normal gait pattern in community no device Goal Time Frame: 4-6 Weeks Goal Progress: Progressing Goal 4:: Patient to improve peak force quads/hip by 5-10 # strength to improve function and gait Goal Time Frame: 4-6 Weeks Goal Progress: Progressing Goal 5:: Patient to improve back oswestry score by 5 points to improve QOL and function Goal Time Frame: 4-6 Weeks Goal Progress: Progressing Goal 6:: Patient to demonstrate 60% improvement with less pain and improved function with ADLS and housework tasks Goal Time Frame: 4-6 Weeks Goal Progress: Progressing Anticipated Interventions Anticipated Interventions Patient/Client Instruction: Educate patient on: Condition and Plan of Care For the Purpose of:: To decrease pain, To increase ROM, To improve muscle performance and motor function, To improve ability to perform ADL's, To increase tolerance to activity/condition/position, To improve ability of physical actions for home/community/work/leisure, To improve health of tissue, To decrease soft tissue restriction, To increase flexibility/ROM, To improve endurance and To improve tolerance to ADL's Therapeutic Exercise to Include: Strength training, Endurance training, Body mechanics, Postural training, Flexibilty training and Dynamic Lumbar Stabilization Comment: LLE QUADS/HIP For the Purpose of:: To decrease pain, To increase ROM, To improve muscle performance and motor function, To improve ability to perform ADL's, To increase tolerance to activity/condition/position, To improve ability of physical actions for home/community/work/leisure, To improve health of tissue, To decrease soft tissue restriction, To increase flexibility/ROM, To improve endurance and To improve tolerance to ADL's Re-Evaluation Ending Re-evaluation ending: Please do not hesitate to contact me at [phone] by phone or if you have questions or concerns regarding this new plan of care! Sincerely, Tom Dhaliwal, PT, Cert MDT, OCS
--- NOTE | 2023-09-27 14:25 | HP.PTREVAL ---
Re-Evaluation Intro: Dr. Alton Oro MD, It has been my pleasure to treat LAUREN OLIVERA over the last 16 visits for OTHER SPECIFIED POSTPROCEDURAL. Please see the progress note below for an update on the physical therapy plan of care! Subjective Subjective: Seen Dr Oro RTD if needed Okay to continue to PT Plan for pain management Oct 16 Objective Objective/Function: * PATEINT WILL CONTINUE TO BENEFIT FROM SKILLED PT WITH PATIENT IMPROVING STRENGTH LEFT LEG AND AMBULATING NO DEVICEWITH GOALS ARE APPROPRIATE AND PROGRESSING* POSTURE: mild forward posture GAIT: reciprocal gait no device with good - balance SKIN: intact NEURO: c/o mild paresthesia/tingling right thigh ,reflexes L3-4,L4-5 ,L5-S1 1/3 FLEXABILITY: hamstrings WFL LUMBAR ROM: flexion mod loss ,extension mod loss ,side glides min loss MMT: ( peak force) left quads 24.4 ,hip flexion 14.7 ,hamstrings 32.1 Plan Plan Plan: S/P LUMBAR DISCECTOMY 07/16. PT INTERVENTIONS DLS ,POSTURAL EX'S ,LLE STRENGTHENING ESPECIALLY QUADS/HIP ,LE FLEXABILITY ,ENDURANCE PROGRAM AND POSTURE/BODY MECHANICS Balance/Gait/Functional tests Balance/Special Test Scores Oswestry Low Back Score: 17 Goals Goals Goal 1:: I with HEP for back Goal Time Frame: 4-6 Weeks Goal Progress: Progressing Goal 2:: Patient to improve lumbar ROM to improve function of recovery to put on shoes Goal Time Frame: 4-6 Weeks Goal Progress: Progressing Goal 3:: Patient to walk with normal gait pattern in community no device Goal Time Frame: 4-6 Weeks Goal Progress: Progressing Goal 4:: Patient to improve peak force quads/hip by 5-10 # strength to improve function and gait Goal Time Frame: 4-6 Weeks Goal Progress: Progressing Goal 5:: Patient to improve back oswestry score by 5 points to improve QOL and function Goal Time Frame: 4-6 Weeks Goal Progress: Progressing Goal 6:: Patient to demonstrate 60% improvement with less pain and improved function with ADLS and housework tasks Goal Time Frame: 4-6 Weeks Goal Progress: Progressing Anticipated Interventions Anticipated Interventions Patient/Client Instruction: Educate patient on: Condition and Plan of Care For the Purpose of:: To decrease pain, To increase ROM, To improve muscle performance and motor function, To improve ability to perform ADL's, To increase tolerance to activity/condition/position, To improve ability of physical actions for home/community/work/leisure, To improve health of tissue, To decrease soft tissue restriction, To increase flexibility/ROM, To improve endurance and To improve tolerance to ADL's Therapeutic Exercise to Include: Strength training, Endurance training, Body mechanics, Postural training, Flexibilty training and Dynamic Lumbar Stabilization Comment: LLE QUADS/HIP For the Purpose of:: To decrease pain, To increase ROM, To improve muscle performance and motor function, To improve ability to perform ADL's, To increase tolerance to activity/condition/position, To improve ability of physical actions for home/community/work/leisure, To improve health of tissue, To decrease soft tissue restriction, To increase flexibility/ROM, To improve endurance and To improve tolerance to ADL's Re-Evaluation Ending Re-evaluation ending: Please do not hesitate to contact me at [phone] by phone or if you have questions or concerns regarding this new plan of care! Sincerely, Tom Dhaliwal, PT, Cert MDT, OCS
--- NOTE | 2023-10-30 12:52 | HP.PTDCSUM ---
Discharge Summary D/C summary: It has been my pleasure to treat LAUREN OLIVERA referred by Dr. Alton Oro MD, with the diagnosis of OTHER SPECIFIED POSTPROCEDURAL for a total of 24 visit(s). Discharge Date: 10/30/23 Please see the following information for a summary of their discharge status. Subjective Subjective: Patient major concerned weakness in legs Stairs are the most difficulty Pain Left Lower Extremity: Pain Intensity (Out of 10): 0 Overall Improvement % Improvement: 450 Objective Objective/Function: POSTURE: mild forward posture GAIT: reciprocal gait no device with good - balance SKIN: intact NEURO: c/o mild paresthesia/tingling right thigh ,reflexes L3-4,L4-5 ,L5-S1 1/3 FLEXABILITY: hamstrings WFL LUMBAR ROM: flexion mod loss ,extension mod loss ,side glides min loss MMT: ( peak force) left quads 24.4 ,hip flexion 14.7 ,hamstrings 32.1 Goals Goal 1:: I with HEP for back Goal Progress: Goal Met Goal 2:: Patient to improve lumbar ROM to improve function of recovery to put on shoes Goal Progress: Goal Met Goal 3:: Patient to walk with normal gait pattern in community no device Goal Progress: Goal Met Goal 4:: Patient to improve peak force quads/hip by 5-10 # strength to improve function and gait Goal Progress: Goal Met Goal 5:: Patient to improve back oswestry score by 5 points to improve QOL and function Goal Progress: Goal Met Goal 6:: Patient to demonstrate 60% improvement with less pain and improved function with ADLS and housework tasks Goal Progress: Progressing Plan Plan: d/c to HEP and Gym D/C Information Discharge Comments: HEP GYM d/c sentence: If there are questions or concerns regarding this patient's physical therapy, please feel free to call me at [phone]. Thank you for the referral of this patient. Sincerely, Tom Dhaliwal, PT, Cert MDT, OCS Balance/Gait/Functional tests Balance/Special Test Scores Oswestry Low Back Score: 6 Improvement % Improvement: 450
== END 2023-10-30 19:00 | disposition home or self-care (01) ==
LOC: PT 12:00
PROVIDERS: PCP Family Medicine; Referring Provider Orthopaedic Surgery Orthopaedic Surgery of the Spine; Visit Provider Orthopaedic Surgery Orthopaedic Surgery of the Spine
DX: Z98.890 Other specified postprocedural states (principal)
CPT/HCPCS: 97110; 97162; 97530

== ENCOUNTER → 2024-01-16 | Outpatient (CLI) | payer MEDICARE, OTHER, SELFPAY ==
[2024-01-16 12:32] LABS: Hemoglobin A1c 6.7 % (3.8-5.6)
[2024-01-16 12:39] LABS: Absolute Lymphocyte Count 1.92 X10^3/uL (0.83-4.51); Absolute Neutrophil Count 3.9 X10^3/uL (2.0-7.7); Basophil# 0.05 X10^3/uL; Basophil% 0.7 % (0-1); Eosinophil# 0.36 X10^3/uL; Eosinophils% 5.3 % (0-5); Hemoglobin 13.8 g/dL (12.0-15.0); Lymphocyte # 1.92 X10^3/ul (0.83-4.51); Lymphocyte % 28.3 % (19-41); Mean Corp Hgb Conc 32.1 g/dL (32-36); Mean Corpuscular Hgb 29.2 pg (27.0-32.0); Mean Corpuscular Volume 91.1 fL (81-99); Monocyte% 7.4 % (0-10); NRBC Flagged by Analyzer 0 % (0-5); Neutrophil # 3.92 X10^3/uL (2.7-7.7); Neutrophil % 57.9 % (47-70); Platelet Count 284 K/mm3 (150-450); RBC Distribution Width CV 13.3 % (11.6-14.6); RBC Distribution Width SD 44.9 fl (35.1-43.9); Red Blood Count 4.72 M/mm3 (4.2-5.4); White Blood Count 6.8 K/mm3 (4.4-11.0)
[2024-01-16 12:51] LABS: ALB/GLOB Ratio 1.3 RATIO (0.9-2.4); AST(SGOT) 29 U/L (15-37); Alanine Aminotransfer ALT/SGPT 31 U/L (13-56); Albumin, Serum 4.1 g/dL (3.2-5.0); Alkaline Phosphatase 70 U/L (45-117); Anion Gap 11 (5-15); BUN 16 mg/dL (7-18); BUN/Creat Ratio 25.2 RATIO (10-20); Chloride 106 mmol/L (98-107); Cholesterol 127 mg/dL (200); Creatinine, Serum 0.64 mg/dL (0.55-1.02); EST Glomerular Filtration Rate 97 mL/min (>60); Est Glom Filt Rate - Afr Amer 117 mL/min (>60); Globulin 3.1 g/dL (2.2-4.2); Glucose 150 mg/dL (74-106); High Density Lipoprotein 60 mg/dL; Potassium 3.9 mmol/L (3.5-5.1); Protein, Total 7.2 g/dL (6.4-8.2); Sodium Level 137 mmol/L (136-145); Triglycerides 181 mg/dL; Very Low Density Lipoprotein 36 mg/dL (5-40)
[2024-01-16 13:01] LABS: Microalbumin,Random Urine 7.6 mg/L (NO RANGE EST.); Microalbumin:Creatinine Ratio 19.5 mg/g CRE (<30 mg/g CRE)
== END | disposition home or self-care (01) ==
LOC: MFPLAB 09:46
PROVIDERS: PCP Family Medicine; Referring Provider Family Medicine; Visit Provider Family Medicine
DX: E11.8 Type 2 diabetes mellitus with unspecified complications (principal)
CPT/HCPCS: 36415; 80053; 80061; 82043; 82570; 83036; 85025

== ENCOUNTER → 2024-05-21 | Outpatient (CLI) | payer MEDICARE, OTHER, SELFPAY ==
[2024-05-21 10:27] LABS: Absolute Lymphocyte Count 2.48 X10^3/uL (0.83-4.51); Absolute Neutrophil Count 2.9 X10^3/uL (2.0-7.7); Basophil# 0.03 X10^3/uL; Basophil% 0.5 % (0-1); Eosinophil# 0.27 X10^3/uL; Eosinophils% 4.3 % (0-5); Hematocrit 41.1 % (37-47); Hemoglobin 13.5 g/dL (12.0-15.0); Lymphocyte # 2.48 X10^3/ul (0.83-4.51); Lymphocyte % 39.9 % (19-41); Mean Corp Hgb Conc 32.8 g/dL (32-36); Mean Corpuscular Hgb 29.5 pg (27.0-32.0); Mean Corpuscular Volume 89.9 fL (81-99); Mean Platelet Vol. 10.4 fl (6.2-12.0); NRBC Flagged by Analyzer 0 % (0-5); Neutrophil # 2.93 X10^3/uL (2.7-7.7); Neutrophil % 47.1 % (47-70); Platelet Count 261 K/mm3 (150-450); RBC Distribution Width SD 43.1 fl (35.1-43.9); Red Blood Count 4.57 M/mm3 (4.2-5.4); White Blood Count 6.2 K/mm3 (4.4-11.0)
[2024-05-21 10:43] LABS: Hemoglobin A1c 7.2 % (<=5.6)
[2024-05-21 14:54] LABS: AST(SGOT) 16 U/L (<=31); Alanine Aminotransfer ALT/SGPT 17 U/L (<=34); Albumin, Serum 4.5 g/dL (3.4-4.8); Alkaline Phosphatase 68 U/L (35-104); Anion Gap 13 (5-15); BUN 15 mg/dL (4-19); Calcium,Total 9.3 mg/dL (7.6-11.0); Carbon Dioxide 22.6 mmol/L (21.0-32.0); Chloride 102 mmol/L (98-108); Cholesterol 126 mg/dL (<=200); Creatinine, Serum 0.55 mg/dL (0.70-1.20); EST Glomerular Filtration Rate 94 (>60); Globulin 2.3 g/dL (2.2-4.2); Glucose 114 mg/dL (70-99); High Density Lipoprotein 52 mg/dL; Low Density Lipoprotein Calc. 55 mg/dL; Potassium 3.9 mmol/L (3.3-5.1); Protein, Total 6.8 g/dL (5.9-8.4); Sodium Level 138 mmol/L (133-145); Triglycerides 93 mg/dL; Very Low Density Lipoprotein 19 mg/dL (5-40)
[2024-05-21 15:01] LABS: Vitamin D,25 Hydroxy 32.5 ng/mL (30-100)
== END | disposition home or self-care (01) ==
LOC: MFPLAB 08:06
PROVIDERS: PCP Family Medicine; Referring Provider Family Medicine; Visit Provider Family Medicine
DX: E11.8 Type 2 diabetes mellitus with unspecified complications (principal); M81.0 Age-related osteoporosis without current pathological fracture
CPT/HCPCS: 36415; 80053; 80061; 82306; 83036; 85025

== ENCOUNTER → 2024-05-28 | Outpatient (CLI) | payer MEDICARE, OTHER, SELFPAY ==
--- NOTE | 2024-05-28 12:15 | US_ITS ---
PROCEDURE: THYROID 05/28/2024 REASON FOR EXAM: Thyroid nodules. TECHNIQUE: Thyroid ultrasound COMPARISON: January 06, 2022. FINDINGS: Right thyroid lobe measures 4.8 cm x 1.3 cm x 1.2 cm. Left thyroid lobe measures 5 cm x 1.7 cm x 0.9 cm. Isthmus thickness is2 mm. Thyroid Size: Mild enlargement of the left lobe of the thyroid. Background Echotexture: Normal Thyroid Nodules: 5 mm x 5 mm x 2 mm hypoechoic solid nodule in the upper pole. Peripheral vascularity. 8 mm x 7 mm x 4 mm heterogeneous complex nodule in the midpole with vascularity. 1.2 cm x 1.4 cm x 0.5 cm hypoechoic solid nodule with the intra nodular flow in the inferior lobe. 5 mm x 4 mm x 3 mm hypoechoic nodule in the upper pole of the left lobe. There is evidence of a 1 cm x 0.5 cm x 0.4 cm isoechoic nodule in the midpole as well as a 5 mm x 4 mm x 3 mm complex cystic nodule in the inferior pole. Other: Essentially stable examination. US/Thyroid IMPRESSION: OVERALL FINAL ASSESSMENT: TI-RADS 3: Probably benign nodules (<5% risk). MULTINODULAR GOITER. Reading Location: [facility]
== END | disposition home or self-care (01) ==
LOC: US 12:14
PROVIDERS: PCP Family Medicine; Referring Provider Family Medicine; Visit Provider Family Medicine
DX: E04.1 Nontoxic single thyroid nodule (principal)
CPT/HCPCS: 76536

== ENCOUNTER → 2024-08-26 | Outpatient (CLI) | payer MEDICARE, OTHER, SELFPAY ==
[2024-08-26 10:56] LABS: Hematocrit 42.2 % (37-47); Hemoglobin 14.1 g/dL (12.0-15.0); Immature Granulocytes Count 0.020 X10^3/uL (0.0-0.0); Mean Corp Hgb Conc 33.4 g/dL (32-36); Mean Corpuscular Volume 90.2 fL (81-99); Mean Platelet Vol. 10.5 fl (6.2-12.0); NRBC Flagged by Analyzer 0 % (0-5); Platelet Count 301 K/mm3 (150-450); RBC Distribution Width CV 13.0 % (11.6-14.6); RBC Distribution Width SD 42.6 fl (35.1-43.9); Red Blood Count 4.68 M/mm3 (4.2-5.4); White Blood Count 6.6 K/mm3 (4.4-11.0)
[2024-08-26 11:14] LABS: AST(SGOT) 15 U/L (<=31); Alanine Aminotransfer ALT/SGPT 13 U/L (<=34); Albumin, Serum 4.5 g/dL (3.4-4.8); Alkaline Phosphatase 75 U/L (35-104); Anion Gap 15 (5-15); BUN 16 mg/dL (4-19); BUN/Creat Ratio 26.2 RATIO (10-20); Calcium,Total 9.6 mg/dL (7.6-11.0); Carbon Dioxide 21.3 mmol/L (21.0-32.0); Chloride 100 mmol/L (98-108); Cholesterol 141 mg/dL (<=200); Globulin 2.5 g/dL (2.2-4.2); Glucose 127 mg/dL (70-99); Low Density Lipoprotein Calc. 62 mg/dL; Potassium 3.8 mmol/L (3.3-5.1); Triglycerides 141 mg/dL; Very Low Density Lipoprotein 28 mg/dL (5-40); cholesterol:hdl ratio screen 2.78
== END | disposition home or self-care (01) ==
LOC: MFPLAB 08:07
PROVIDERS: PCP Family Medicine; Visit Provider Family Medicine
DX: E11.69 Type 2 diabetes mellitus with other specified complication (principal)
CPT/HCPCS: 36415; 80053; 80061; 83036; 85025

== ENCOUNTER → 2024-12-31 | Outpatient (CLI) | payer MEDICARE, OTHER, SELFPAY ==
[2024-12-31 10:52] LABS: AST(SGOT) 12 U/L (<=31); Alanine Aminotransfer ALT/SGPT 14 U/L (<=34); Albumin, Serum 4.5 g/dL (3.4-4.8); Alkaline Phosphatase 70 U/L (35-104); Anion Gap 10 (5-15); BUN 20 mg/dL (4-19); BUN/Creat Ratio 29.7 RATIO (10-20); Calcium,Total 9.6 mg/dL (7.6-11.0); Carbon Dioxide 26.3 mmol/L (21.0-32.0); Chloride 102 mmol/L (98-108); Cholesterol 189 mg/dL (<=200); Globulin 2.4 g/dL (2.2-4.2); Glucose 153 mg/dL (70-99); Low Density Lipoprotein Calc. 109 mg/dL; Potassium 4.1 mmol/L (3.3-5.1); Triglycerides 168 mg/dL; Very Low Density Lipoprotein 34 mg/dL (5-40); cholesterol:hdl ratio screen 3.71
[2024-12-31 10:52] LABS: Creatinine, Urine (random) 117.00 mg/dL (28.00-217.00)
[2024-12-31 10:59] LABS: Microalbumin,Random Urine < 12.0 mg/L (<20 mg/L)
== END | disposition home or self-care (01) ==
LOC: MFPLAB 08:05
PROVIDERS: PCP Family Medicine; Visit Provider Family Medicine
DX: E11.8 Type 2 diabetes mellitus with unspecified complications (principal)
CPT/HCPCS: 36415; 80053; 80061; 82043; 82570; 83036